=== PATIENT | female | born 1955 | race Hispanic/Latino ===

== ENCOUNTER 2017-12-12 18:01 | Emergency (ER) | payer OTHER ==
--- OUTSIDE RECORDS SUMMARY | 2017-12-12 18:04 | XMS REPORT | Clinical Summary ---
:1955 Author Organization [facility] Address [address] [place] [address] Care Team Providers Name Role Phone Kevin Robles MD Primary Care Provider Allergies Active Allergy Reactions Severity Noted Date Comments Aspirin GI Intolerance 09/14/2017 Pass out too Meperidine Itching 09/14/2017 Current Medications Prescription Sig. Disp. Refills Start Date End Date Status dexlansoprazole Take 60 mg by Active (DEXILANT) 60 mg mouth daily. capsule valsartan (DIOVAN) 160 Take 160 mg by Active MG tablet mouth daily. potassium chloride Take 10 mEq by Active (K-DUR,KLOR-CON) 10 mouth 2 (two) MEQ CR tablet times a day. amLODIPine (NORVASC) 5 Take 5 mg by Active mg tablet mouth daily. HYDROcodone-acetaminop TAKE ONE (1) 0 11/06/2017 Active hen (NORCO) 10-325 mg TABLET(S) BY per tablet MOUTH FOUR TIMES A DAY. cephalexin (KEFLEX) Take 1 capsule 8 capsule 0 09/25/2017 09/27/2017 500 MG capsule (500 mg total) by mouth every 6 (six) hours for 2 days. To begin after surgery promethazine Take 1 tablet 20 tablet 0 09/25/2017 10/25/2017 (PHENERGAN) 25 MG (25 mg total) tablet by mouth every 6 (six) hours as needed for nausea or vomiting for up to 30 days. To begin after surgery Active Problems No known active problems Encounters Date Type Specialty Care Team Description 11/30/2017 Procedure visit Neurology Bar Bazzi Bilateral arm pain ( Primary Dx); Cal MARINELLI MD Arthritis of left wrist; Jax Rico MD Numbness and tingling in both hands 11/30/2017 Telephone Orthopedic Surgery Bar Bazzi III, MD 11/27/2017 Orders Only Orthopedic Surgery Bar Bazzi III, MD 11/24/2017 Office Visit Orthopedic Surgery Bar Bazzi Arthritis of left wrist (Primary Dx); Cal MARINELLI MD Numbness and tingling in left hand 11/20/2017 Office Visit Orthopedic Surgery Taye Nava Complete tear of left MD Daquan rotator cuff (Primary Dx) 10/26/2017 Office Visit Orthopedic Surgery Taye Nava Complete tear of left W.MD rotator cuff (Primary Dx) 2017 Hospital Radiology Taye Nava MD 2017 Procedure Pass Radiology 2017 Ancillary Orders Radiology Taye Nava MD 10/05/2017 Office Visit Orthopedic Surgery Keri, Complete tear of left rotator cuff (Primary Dx); Janes Daly, Other secondary osteoarthritis of left wrist PA Taye Nava MD 09/28/2017 Telephone Anesthesiology Shannan Dacosta RN 09/27/2017 [facility] General Surgery Taye Nava MD 09/27/2017 Procedure Pass General Surgery 09/27/2017 Surgery General Surgery Taye Nava LEFT ARTHROSCOPY OF THE WMD Corrina SHOULDER WITH DECOMPRESSION, ACROMIOCLAVICULAR RESECTION, AND ROTATOR CUFF REPAIR 09/25/2017 [facility] Radiology Jeremias Mueller Bilateral Encounter ALLYSSA David temporomandibular joint pain 09/25/2017 Orders Only Orthopedic Surgery Janes Saavedra PA 09/22/2017 Pre-Admit Testing Pre-Admission Taye Nava Preop testing ( Primary Appointment Testing MD Daquan Dx) 09/21/2017 Anesthesia Event General Surgery Anjelica Pérez FNP 09/14/2017 Office Visit Orthopedic Surgery Taye Nava Complete tear of left MD Daquan rotator cuff (Primary Dx) 09/14/2017 Procedure Pass Radiology 09/14/2017 Transcribe Orders Access Jeremias Mueller Bilateral ALLYSSA David temporomandibular joint pain (Primary Dx) 01/17/2017 [facility] Radiology Pedro Pablo Navarro, Cervical stenosis of Encounter spine 01/17/2017 Ancillary Orders Pedro Pablo Obrien, Cervical stenosis of spine 01/17/2017 Transcribe Orders Pedro Pablo Obrien, Cervical stenosis of spine (Primary Dx) after 12/11/2016 Family History Medical History Relation Name Comments Heart disease Father Hypertension Father Heart disease Mother Thyroid cancer Mother Relation Name Status Comments Father Mother Social History Tobacco Use Types Packs/Day Years Used Date Never Smoker Smokeless Tobacco: Never Used Alcohol Use Drinks/Week oz/Week Comments No Sex Assigned at Date Recorded Not on file Last Filed Vital Signs Vital Sign Reading Time Taken Blood Pressure 114/69 09/27/2017 1:15 PM [facility] [employer] Pulse 58 09/27/2017 1:15 PM [employer] Temperature 36.6 C (97.9 F) 09/27/2017 1:15 PM [employer] Respiratory Rate 16 09/27/2017 1:15 PM [employer] [employer] Oxygen Saturation 97% 09/27/2017 1:15 PM [employer] Inhaled Oxygen Concentration - - Weight 56.7 kg (125 lb) 11/24/2017 10:04 AM CDT Height 160 cm (5' 3") 11/24/2017 10:04 AM CDT Body Mass Index 22.14 11/24/2017 10:04 AM CDT Plan of Treatment Date Type Specialty Care Team Description 12/18/2017 [place] [address] [place], [place] [address] Marilin Soto 12/19/2017 Office Visit [place] [address] [place], [place] [address] 12/25/2017 Office [place] [address] [place], [place] [id number] Marilin Soto 01/01/2018 Office [place] [address] [place], [place] [id number] Health Maintenance Due Date Last Done Comments PAP SMEAR 1977 COLONOSCOPY 2006 MAMMOGRAM 2006 ZOSTER VACCINE 2016 INFLUENZA VACCINE 04/04/2018 Implants Implanted Type Area Veterinary Practitioner Device Expiration Model / Identifier Date Serial / Lot [place] Sut Pushlock Kntls Peek 4.5x24mm - [id number] Orthopedic Left: [employer] 03/03/2022 AR [id number] / Implanted: 09/27/2017 (Quantity not on file) Trauma Shoulder / Implants [id number] [place] S[place] Pushlock Kntls Peek 4.5x24mm - [id number] Orthopedic Left: [employer] 03/03/2022 AR 1922PS / Implanted: 09/27/2017 (Quantity not on file) Trauma Shoulder / Implants [id number] [place] Sut Healix Knotless Br Biocmpst W/ Orthocord 5.5mm - [id number] Orthopedic Left: [employer]K 05/04/2020 [id number] / Implanted: 09/27/2017 (Quantity not on file) Trauma Shoulder / Implants [id number] Procedures Procedure Name Priority Date/Time Associated Comments Diagnosis SC ARTHROCENTESIS Routine 11/24/2017 10:30 Arthritis of left Results for this ASPIR&/INJ INTERM AM CDT wrist procedure are in JT/BURS W/O US the results section. SC AN PERIPHERAL BLOCK Routine 09/27/2017 7:55 POST-OP PAIN AM [employer] Procedure Note - Karlos Khoury MD - 09/27/2017 7:54 AM [employer] Peripheral Block Performed by: KARLOS KHOURY Authorized by: KARLOS KHOURY Patient Location: Pre-op Reason for Block: at surgeon's request, post-op pain management Staff: Anesthesiologist: KARLOS KHOURY Performed by: Anesthesiologist Preprocedure: patient identified, IV checked, site and side verified, risks and benefits discussed, procedure verified, surgical consent complete, patient position confirmed, monitors and equipment checked, pre-op evaluation complete and site marked Peripheral Nerve Block: Patient Position: Right lateral decubitus Prep: DuraPrep Block Type: Interscalene Laterality: Left Injection Technique: Catheter insertion Procedures: ultrasound guided and nerve stimulator Ultrasound documentation: Printed/placed in chart Local Infiltration (See MAR for details): Ropivacaine Needle: Needle Type: Pajunk Needle Gauge: 19 G Needle Length: 10 cm Catheter at Skin Depth: 6 cm Assessment: Injection Assessment: Visualized needle/local anesthetic surrounding nerve , visualized pertinent vascular structures and nerves, needle tip visualized at all times during injection of medication, intermittent aspiration during local anesthetic administration and no symptoms of intraneural/intravenous injection Heart Rate Change: No Slow Fractionated Injection: Yes Block outcome: No apparent complications, patient comfortable and patient tolerated procedure well Notes: Time Out done immediately before procedure 20cc 0.5N and 4md Decadron after 12/11/2016 Results TING SCREEN W IFA W REFLEX TO TITER (11/27/2017 11:22 AM) Component Value Ref Range TING screen NEGATIVE NEGATIVE Comment: TING IFA is a first line screen for detecting the presence of up to approximately 150 autoantibodies in various autoimmune diseases. A negative TING IFA result suggests TING-associated autoimmune diseases are not present at this time. Visit Physician FAQs for interpretation of all antibodies in the Hart, prevalence, and association with diseases at [email or web address] [email or web address] Specimen Performing Laboratory [facility] Narrative FASTING: UNKNOWN SSA/SSB antibody (11/27/2017 11:22 AM) Component Value Ref Range Sjogren's SS-A antibody <1.0 NEG <1.0 NEG AI Sjogren's SS-B antibody <1.0 NEG <1.0 NEG AI Specimen Performing Laboratory [facility] Narrative FASTING: UNKNOWN DNA Ab screen (11/27/2017 11:22 AM) Component Value Ref Range DNA ds antibody 1 IU/mL Comment: IU/mL Interpretation < or=4 Negative 5-9 Indeterminate > or=10 Positive Specimen Performing Laboratory [facility] Narrative FASTING: UNKNOWN Cyclic citrullinated peptide antibody, IgG (11/27/2017 11:22 AM) Component Value Ref Range Cyclic citrullin peptide Ab <16 UNITS Comment: Reference Range Negative:<20 Weak Positive: 20-39 Moderate Positive: 40-59 Strong Positive: >59 Specimen Performing Laboratory [facility] Narrative FASTING: UNKNOWN Sedimentation rate (11/27/2017 11:22 AM) Component Value Ref Range Sedimentation rate 8 < OR=30 mm/h Specimen Performing Laboratory [facility] Narrative FASTING: UNKNOWN CBC with platelet and differential (11/27/2017 11:22 AM)Only the most recent of2 resultswithin the time period is included. Component Value Ref Range WBC 8.9 3.8 - 10.8 Thousand/uL RBC 4.50 3.80 - 5.10 Million/uL HGB 13.7 11.7 - 15.5 g/dL HCT 42.2 35.0 - 45.0 % MCV 93.8 80.0 - 100.0 fL MCH 30.4 27.0 - 33.0 pg MCHC 32.5 32.0 - 36.0 g/dL RDW 12.5 11.0 - 15.0 % Platelet count 405 (H) 140 - 400 Thousand/uL MPV 10.6 7.5 - 12.5 fL Neutrophils, absolute 5,385 1,500 - 7,800 cells/uL Lymphocytes, absolute 2,394 850 - 3,900 cells/uL Monocytes, absolute 596 200 - 950 cells/uL Eosinophils, absolute 454 15 - 500 cells/uL Basophils, absolute 71 0 - 200 cells/uL Neutrophils 60.5 % Lymphocytes 26.9 % Monocytes 6.7 % Eosinophils 5.1 % Basophils + RC 0.8 % Specimen Performing [facility] Narrative FASTING: UNKNOWN Rheumatoid factor (11/27/2017 11:22 AM) Component Value Ref Range Rheumatoid factor <14 <14 IU/mL Specimen Performing [facility] Narrative FASTING: UNKNOWN C-reactive protein (11/27/2017 11:22 AM) Component Value Ref Range CRP 4.1 <8.0 mg/L Specimen Performing Laboratory [facility] Narrative FASTING: UNKNOWN Uric acid level (11/27/2017 11:22 AM) Component Value Ref Range Uric acid 9.8 (H) 2.5 - 7.0 mg/dL Comment: Therapeutic target for gout patients: <6.0 mg/dL Specimen Performing Laboratory [facility] Narrative FASTING: UNKNOWN Comprehensive metabolic panel (11/27/2017 11:22 AM) Component Value Ref Range Glucose 81 65 - 99 mg/dL Comment: Fasting reference interval BUN, whole blood 30 (H) 7 - 25 mg/dL Creatinine 0.99 0.50 - 0.99 mg/dL Comment: For patients >49 years of age, the reference limit for Creatinine is approximately 13% higher for people identified as -Mosotho. EGFR Non-Afr. Mosotho 61 > OR=60 mL/min/1.73m2 EGFR 71 > OR=60 mL/min/1.73m2 BUN/creatinine ratio 30 (H) 6 - 22 (calc) Sodium 144 135 - 146 mmol/L Potassium 4.3 3.5 - 5.3 mmol/L Chloride 106 98 - 110 mmol/L CO2 27 20 - 31 mmol/L Calcium 9.4 8.6 - 10.4 mg/dL Protein 7.4 6.1 - 8.1 g/dL Albumin, S 4.0 3.6 - 5.1 g/dL Globulin, total 3.4 1.9 - 3.7 g/dL (calc) Albumin/globulin ratio 1.2 1.0 - 2.5 (calc) Total bilirubin 0.3 0.2 - 1.2 mg/dL Alkaline phosphatase 88 33 - 130 U/L AST 18 10 - 35 U/L ALT 18 6 - 29 U/L Specimen Performing Laboratory [facility] Narrative FASTING: UNKNOWN Medium Joint Arthrocentesis (11/24/2017 10:30 AM) Narrative Bar Bazzi III, MD 11/24/2017 12:57 PM Medium Joint Arthrocentesis Supporting Documentation Indications: pain Procedure Details Preparation: Patient was prepped and draped in the usual sterile fashion Location: wrist - Wrist joint: left distal radioulnar joint. XR Wrist 3+ Vw Left (11/24/2017 10:13 AM) Specimen Performing Laboratory [facility] [address] [place] [address] Narrative PA, lateral, and oblique views of the left wrist demonstrate no acute abnormalities. Advanced DRUJ arthrosis with joint space narrowing and spurring. Mild ulnar positive variance. Carpal alignment unremarkable. POC glucose (09/27/2017 7:40 AM) Component Value Ref Range POC glucose 88 65 - 99 mg/dL Comment: Meter ID: [id number] Mold Worker: Anny Pascual Specimen Performing Laboratory [facility] DEPARTMENT OF PATHOLOGY AND GENOMIC MEDICINE [address] [place] [id number] MRI Temporomandibular Joints (09/25/2017 11:05 AM) Specimen Performing Laboratory [facility] [address] [place] [address] Narrative EXAMINATION:MRI TEMPOROMANDIBULAR JOINTS CLINICAL HISTORY:M26.623 Arthralgia of bilateral temporomandibular joint, ARTHRALGIA COMPARISON:None. TECHNIQUE: Multiplanar MRI imaging of the TMJs without IV Gadolinium was performed during open and closed positions. Dynamic cine sequence was obtained. FINDINGS: RIGHT: Moderate degenerative changes of the articular disc with moderate flattening and mild elevated T2 signal. The disc appears to be well located on opening closed mouth views. Small osteophyte of the mandibular condyle. No joint effusion or marrow edema. LEFT: The articular disc is severely macerated with no normal disc material identified on closed or open-mouth views. 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 [id number] Procedure Note Hm Interface, Radiology Results Incoming - 09/25/2017 12:02 PM [facility] [employer] EXAMINATION: MRI TEMPOROMANDIBULAR JOINTS CLINICAL HISTORY: M26.623 Arthralgia of bilateral temporomandibular joint, ARTHRALGIA COMPARISON: None. TECHNIQUE: Multiplanar MRI imaging of the TMJs without IV Gadolinium was performed during open and closed positions. Dynamic cine sequence was obtained. FINDINGS: RIGHT: Moderate degenerative changes of the articular disc with moderate flattening and mild elevated T2 signal. The disc appears to be well located on opening closed mouth views. Small osteophyte of the mandibular condyle. No joint effusion or marrow edema. LEFT: The articular disc is severely macerated with no normal disc material identified on closed or open-mouth views. 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 [id number] Estimated GFR (09/22/2017 11:03 AM) Component Value Ref Range GFR Non Af Amer 56 (A) mL/min/1.73 m2 GFR Af Amer 68 mL/min/1.73 m2 Comment: Chronic kidney disease: <60 mL/min/1.73m2 Kidney failure: <15 mL/min/1.73m2 The estimated GFR is calculated from the IDMS-traceable Modification of Diet in Renal Disease Equation. The accuracy of the calculation is poor when the creatinine is normal. Calculated values >90 mL/min/1.73m2 are not reported. This equation has not been validated in children (<18 years), women, the elderly (>70 years), or ethnic groups other than Caucasians and Americans. Specimen Performing Laboratory Plasma specimen [facility] DEPARTMENT OF PATHOLOGY AND [address] [address] Basic metabolic panel (09/22/2017 11:03 AM) Component Value Ref Range Sodium 144 135 - 148 mEq/L Potassium 5.5 (H) 3.5 - 5.0 mEq/L Chloride 104 98 - 112 mEq/L CO2 28 24 - 31 mEq/L Anion gap 12 7 - 15 mEq/L Comment: Starting from December , anion gap calculation no longer incorporates potassium. Please note the change. BUN 27 (H) 8 - 23 mg/dL Creatinine 1.0 (H) 0.5 - 0.9 mg/dL Glucose 99 65 - 99 mg/dL Calcium 9.8 8.8 - 10.2 mg/dL Specimen Performing Laboratory Plasma specimen [facility] PATHOLOGY AND [address] [address] XR Cervical Spine Ap Lateral Flexion And Extension (01/17/2017 11:11 AM) Specimen Performing Laboratory [facility] [address] [place] [address] Narrative EXAMINATION: XR CERVICAL SPINE AP LATERAL FLEXION AND EXTENSION CLINICAL HISTORY: Cervical region neck pain. Cervical canal stenosis. COMPARISON:X-rays of the cervical spine from October 27, 2016 FINDINGS: There is relatively stable anterior fusion from C5 to C7. There is severe posterior disc space narrowing at C3-4 and moderate posterior disc space narrowing at C4-5. There is mild dorsal spondylosis at C3-4 and C4-5. There is mild anterolisthesis at C7-T1 which does not change significantly with flexion versus extension. There is stable mild disc space narrowing at C7-T1. There are facet and uncovertebral joint hypertrophic changes, more prominent in the lower cervical region. The cervical curvature is slightly convex towards the right. IMPRESSION: Postoperative and degenerative changes in the cervical spine without acute abnormality. [facility]-[id number] Procedure Note Interface, Radiology Results Incoming - 01/18/2017 12:22 PM CDT EXAMINATION: XR CERVICAL SPINE AP LATERAL FLEXION AND EXTENSION CLINICAL HISTORY: Cervical region neck pain. Cervical canal stenosis. COMPARISON: X-rays of the cervical spine from October 27, 2016 FINDINGS: There is relatively stable anterior fusion from C5 to C7. There is severe posterior disc space narrowing at C3-4 and moderate posterior disc space narrowing at C4-5. There is mild dorsal spondylosis at C3-4 and C4- 5. There is mild anterolisthesis at C7-T1 which does not change significantly with flexion versus extension. There is stable mild disc space narrowing at C7-T1. There are facet and uncovertebral joint hypertrophic changes, more prominent in the lower cervical region. The cervical curvature is slightly convex towards the right. IMPRESSION: Postoperative and degenerative changes in the cervical spine without acute abnormality. [facility]-[id number] after 12/11/2016 Insurance Payer Benefit Plan / Group Subscriber ID Type Phone Address MEDICARE MEDICARE PART A AND B xxxxxxxxxx Medicare [place], [place] MEDICAID MEDICAID xxxxxxxxx Medicaid Home: [address] [place], [place] [id number] [id number] [place] [id number]
--- OUTSIDE RECORDS SUMMARY | 2017-12-12 18:05 | XMS REPORT | Clinical Summary ---
:1955 Author Organization [facility] Address [address] [place] [address] Phone Care Team Providers Name Role Phone Unavailable Primary Care Provider Unavailable Allergies Active Allergy Reactions Severity Noted Date Comments Aspirin Other (See Comments) 06/06/2017 dizzy Tramadol Itching 06/06/2017 Current Medications Prescription Sig. Disp. Refills Start Date End Date Status valsartan (DIOVAN) Take 160 mg Active 160 MG tablet by mouth daily. amLODIPine (NORVASC) Take 5 mg by Active 5 MG tablet mouth daily. furosemide (LASIX) 40 Take 40 mg Active MG tablet by mouth as needed. HYDROCODONE-ACETAMINO Take by Active PHEN ORAL mouth. promethazine Take 25 mg Active (PHENERGAN) 25 MG by mouth tablet every 6 (six) hours as needed for Nausea. ranitidine (ZANTAC) Take 150 mg Active 150 MG tablet by mouth 2 (two) times daily. dexlansoprazole 60 mg Take 60 mg Active capsule by mouth daily. omeprazole (PRILOSEC) Take 40 mg Active 40 MG capsule by mouth daily. MULTIVIT-MINERALS/FOL Take by Active IC/GINKGO (WOMEN'S mouth. 50+ DAILY FORM, GKB, ORAL) potassium chloride Take 10 mEq Active (KLOR-CON) 10 MEQ CR by mouth tablet daily. LIPASE/PROTEASE/AMYLA Take by 08/15/2017 Discontinued SE (CREON ORAL) mouth. cyclobenzaprine Take 1 30 tablet 0 08/17/2017 08/27/2017 (FLEXERIL) 10 MG tablet (10 tablet mg total) by mouth 3 (three) times daily as needed for Muscle spasms for up to 10 days. aluminum & Take 30 mLs 355 mL 0 08/18/2017 08/28/2017 magnesium by mouth hydroxide-simethicone every 6 (MAALOX PLUS) (six) hours 400-400-40 mg/5 mL as needed suspension for up to 10 days. Active Problems Problem Noted Date Chronic pancreatitis (HCC) 08/15/2017 Abdominal pain 08/15/2017 Encounters Date Type Specialty Care Team Description [facility]2017 [facility] Medicine MD Shaheen (Primary Dx);Other 08/19/2017 [place], chronic pancreatitis [place] ([facility]);Essential MD Javid hypertension;Dislocatio n of temporomandibular joint, initial encounter 08/15/2017 Anesthesia Event Gastroenterology Ambrose Polanco MD 08/15/2017 Procedure Pass Gastroenterology 08/15/2017 Surgery Gastroenterology [place], ERCP MD Shaheen 06/12/2017 Hospital Gastroenterology [place], Encounter MD Shaheen 06/12/2017 Procedure Pass Gastroenterology 06/12/2017 Surgery Gastroenterology [place], UPPER ENDOSCOPY,FNA MD Shaheen W/ULTRASOUND 06/09/2017 Anesthesia Event Gastroenterology FlamKarlos MD after 12/11/2016 Immunizations Name Dates Previously Given Next Due Influenza Three-TIV PF 5+ YR 08/16/2017 Social History Tobacco Use Types Packs/Day Years Used Date Never Smoker Smokeless Tobacco: Never Used Alcohol Use Drinks/Week oz/Week Comments No Sex Assigned at Date Recorded Not on file Last Filed Vital Signs Vital Sign Reading Time Taken Blood Pressure 108/70 08/19/2017 11:43 AM BENEFITS CLERK Pulse 81 08/19/2017 11:43 AM BENEFITS CLERK Temperature 36.7 C (98.1 F) 08/19/2017 11:43 AM BENEFITS CLERK Respiratory Rate 20 08/19/2017 11:43 AM BENEFITS CLERK Oxygen Saturation 97% 08/19/2017 11:43 AM BENEFITS CLERK Inhaled Oxygen Concentration - - Weight 64.3 kg (141 lb 12.8 oz) 08/15/2017 12:19 PM BENEFITS CLERK Height 160 cm (5' 3") 08/15/2017 12:19 PM BENEFITS CLERK Body Mass Index 25.12 08/15/2017 12:19 PM BENEFITS CLERK Plan of Treatment Not on file Procedures Procedure Name Priority Date/Time Associated Diagnosis Comments PROCEDURE W/ C-ARM 08/15/2017 1:00 PM BENEFITS CLERK Biliary pain Special Needs (C-ARM) ERCP 08/15/2017 1:00 PM BENEFITS CLERK Biliary pain Special Needs (C-ARM) UPPER ENDOSCOPY,FNA W/ULTRASOUND 06/12/2017 2:30 PM CDT Chronic abdominal pain Special Needs (LINEAR SCOPE) after 12/11/2016 Results XR temporomandibular joint bilateral (08/17/2017 4:56 PM)Only the most recent of2 resultswithin the time period is included. Specimen Performing Laboratory GE RIS Narrative FINAL REPORT TECHNIQUE: Open and closed mouth views of both temporomandibular joints dated 08/17/2017. HISTORY: Status post reduction. COMPARISON: No mandibular radiographs dated 08/16/2017. IMPRESSION: There has been interval relocation of the right temporomandibular joint. Left temporal mandibular joint is unremarkable in appearance. No visualized fracture. Signed: Myriam Velez MD Report Verified Date/Time:08/17/2017 17:16:54 Reading Location: [facility] Radiology Reading Room Procedure Note Interface, External Ris In - 08/17/2017 5:19 PM BENEFITS CLERK FINAL REPORT TECHNIQUE: Open and closed mouth views of both temporomandibular joints dated 08/17/2017. HISTORY: Status post reduction. COMPARISON: No mandibular radiographs dated 08/16/2017. IMPRESSION: There has been interval relocation of the right temporomandibular joint. Left temporal mandibular joint is unremarkable in appearance. No visualized fracture. Signed: Myriam Velez MD Report Verified Date/Time: 08/17/2017 17:16:54 Reading Location: [facility] Radiology Reading Room Sedimentation rate (08/17/2017 5:25 AM) Component Value Ref Range Sed Rate 51 (H) 0 - 30 mm/HR Specimen Performing Laboratory Blood [address] [address] Anti-Nuclear Antibody (TING) (08/16/2017 12:07 PM) Component Value Ref Range TING Negative Negative Specimen Performing Laboratory Blood [address] [place] [address] Phosphorus (08/16/2017 6:12 AM) Component Value Ref Range Phosphorus 3.1 2.3 - 4.7 mg/dL Specimen Performing Laboratory Blood - Arm, [address] [address] Magnesium (08/16/2017 6:12 AM) Component Value Ref Range Magnesium 1.7 1.6 - 2.6 mg/dL Specimen Performing Laboratory Blood - Arm, [address] [address] Hepatic function panel (08/16/2017 6:12 AM) Component Value Ref Range Protein, Total 6.8 6.0 - 8.3 gm/dL Albumin 3.6 3.5 - 5.0 g/dL Total Bilirubin 0.5 0.2 - 1.2 mg/dL Bilirubin, Direct 0.2 0.1 - 0.5 mg/dL Alkaline Phosphatase 96 40 - 150 U/L AST 74 (H) 5 - 34 U/L ALT 38 6 - 55 U/L Specimen Performing Laboratory Blood - Arm, [address] [address] Basic metabolic panel (08/16/2017 6:12 AM) Component Value Ref Range Sodium 144 136 - 145 meq/L Potassium 3.5 3.5 - 5.1 meq/L Chloride 111 (H) 98 - 107 meq/L CO2 24 22 - 29 meq/L BUN 14 7 - 21 mg/dL Creatinine 0.80 0.57 - 1.25 mg/dL Glucose 79 70 - 105 mg/dL Calcium 8.3 (L) 8.4 - 10.2 mg/dL EGFR 73Comment: ESTIMATED GFR IS NOT ACCURATE mL/min/1.73 sq m CREATININE CLEARANCE IN PREDICTING GLOMERULAR FILTRATION RATE. ESTIMATED GFR IS NOT APPLICABLE FOR DIALYSIS PATIENTS. Specimen Performing Laboratory Blood - Arm, [address] [address] Manual Differential (08/16/2017 5:59 AM) Component Value Ref Range Total Counted WBC Morphology Normal Platelet Morphology Normal RBC Morphology Normal Specimen Performing Laboratory Blood - Arm, [address] [address] CBC with platelet count + automated diff (08/16/2017 5:59 AM) Component Value Ref Range WBC 8.8 3.5 - 10.5 K/L RBC 3.72 (L) 3.93 - 5.22 M/L Hemoglobin 11.7 11.2 - 15.7 GM/DL Hematocrit 37.9 34.1 - 44.9 % MCV 101.9 (H) 79.4 - 94.8 fL MCH 31.5 25.6 - 32.2 pg MCHC 30.9 (L) 32.2 - 35.5 GM/DL RDW 12.9 11.7 - 14.4 % Platelets 181 150 - 450 K/CU MM MPV 11.1 9.4 - 12.3 fL nRBC 0 0 - 0 /100 WBC % Neutros 75 % % Lymphs 16 % % Monos 6 % % Eos 2 % % Baso 1 % # Neutros 6.58 (H) 1.56 - 6.13 K/L # Lymphs 1.38 1.18 - 3.74 K/L # Monos 0.54 (H) 0.24 - 0.36 K/L # Eos 0.18 0.04 - 0.36 K/L # Baso 0.06 0.01 - 0.08 K/L Immature Granulocytes-Relative 0 0 - 1 % Specimen Performing Laboratory Blood - Arm, Left [address] [address] CBC with platelet count + automated diff (08/16/2017 5:59 AM) Specimen Performing Laboratory Blood Narrative The following orders were created for panel order CBC with platelet count + automated diff. Procedure Abnormality Status --------- ------ CBC with platelet count ...[[id number]]AbnormalFinal result Manual Differential[[id number]] Fi nal result Please view results for these tests on the individual orders. REPORT OF PROCEDURE - ENDOSCOPY URL (08/15/2017 2:43 PM)Only the most recent of2 resultswithin the time period is included.FL Endoscopic Retrograde Cholangiopancreatography (08/15/2017 2:16 PM) Specimen Performing Laboratory GE RIS Narrative FINAL REPORT ERCP. CLINICAL HISTORY: dilated ducts. COMPARISON STUDY: August 05, 2004. FINDINGS: Seven fluoroscopically acquired images from an ERCP are submitted for interpretation. There has been retrograde cannulation and injection of contrast into the CBD. The duct is dilated. A balloon device was swept through the duct. Cholecystectomy clips are seen. An intraoperative verbal report was not requested. Please refer to the gastroenterology notes for further discussion. Fluoroscopy was not performed by the undersigned. Fluoroscopy time: One minute, 39 seconds. Seven images. Signed: Darwin Juan MD Report Verified Date/Time:08/15/2017 16:10:57 Reading Location: [address] Radiology Reading Room Procedure Note Interface, External Ris In - 08/15/2017 4:13 PM BENEFITS CLERK FINAL REPORT ERCP. CLINICAL HISTORY: dilated ducts. COMPARISON STUDY: August 05, 2004. FINDINGS: Seven fluoroscopically acquired images from an ERCP are submitted for interpretation. There has been retrograde cannulation and injection of contrast into the CBD. The duct is dilated. A balloon device was swept through the duct. Cholecystectomy clips are seen. An intraoperative verbal report was not requested. Please refer to the gastroenterology notes for further discussion. Fluoroscopy was not performed by the undersigned. Fluoroscopy time: One minute, 39 seconds. Seven images. Signed: Darwin Juan MD Report Verified Date/Time: 08/15/2017 16:10:57 Reading Location: [address] Radiology Reading Room -Potassium (06/12/2017 1:34 PM) Component Value Ref Range POC-Potassium 3.9Comment: TESTED AT [address] 3.6 - 5.5 meq/L [id number] Specimen Performing Laboratory Blood [facility] [address] [address] after 12/11/2016
--- OUTSIDE RECORDS SUMMARY | 2017-12-12 18:05 | XMS REPORT ---
:1955 [facility] Address [address] [place] [address] Care Team Providers Name Role Phone ZABRINA STALLWORTH Unavailable Unavailable Problems This patient has no known problems. Allergies, Adverse Reactions, Alerts This patient has no known allergies or adverse reactions. Medications This patient has no known medications. Results Test Description Test Time Test Comments Text Results Atomic Results Result Comments RAD, TEMPOROMANDIBULAR 2017-08-17 Reason for FINAL REPORT PATIENT JOINT, BILATERAL 17:16:00 exam:->s/p ID: [id number] reduction TECHNIQUE: Open and closed mouth views of both temporomandibular joints dated 08/17/2017. HISTORY: Status post reduction. COMPARISON: No mandibular radiographs dated 08/16/2017. IMPRESSION:There has been interval relocation of the right temporomandibular joint. Left temporal mandibular joint is unremarkable in appearance. No visualized fracture. Signed: Myriam Velezepkala Verified Date/Time: 08/17/2017 17:16:54 Reading Location: [facility] Radiology Reading Room -NUCLEAR ANTIBODY (TING) 2017-08-17 14:15:00 Test Item Value Reference Range Comments ANTI-NUCLEAR ANTIBODY (TING) (BEAKER) (test zpaz=606) Negative Negative SEDIMENTATION [id number] 09:30:00 Test Item Value Reference Range Comments SEDIMENTATION RATE, ERYTHROCYTE (BEAKER) (test 51 mm/HR 0-30 ojzo=994) RAD, TEMPOROMANDIBULAR JOINT, [id number] 18:19:00Reason for exam:-> lock jawFINAL REPORT TECHNIQUE: Frontal and lateral views of both temporomandibular joints. INDICATION: 61-year-old woman with lock jaw. COMPARISON: None. FINDINGS:Normal appearance of the left temporomandibular joint on closed and open-mouth views.Anterior subluxation of the right mandibular condyle on closed and open-mouth views.Frontal view of the mandible shows slight asymmetry. IMPRESSION:Suspected anterior subluxation/dislocation at the right temporomandibular joint. Signed: Terri Chirinos MDReport Verified Date/Time: 08/16/2017 18:19:33 Reading Location: [address] Consult Reading Room Electronically signed by: TERRI CHIRINOS MD on 2016 06:19 PMCBC W/PLT COUNT & AUTO [id number] 11:27:00 Test Item Value Reference Range Comments WHITE BLOOD CELL COUNT (BEAKER) (test ijzg=602) 8.8 K/ L 3.5-10.5 RED BLOOD CELL COUNT (BEAKER) (test emsk=866) 3.72 M/ L 3.93-5.22 HEMOGLOBIN (BEAKER) (test kfro=182) 11.7 GM/DL 11.2-15.7 HEMATOCRIT (BEAKER) (test ykrh=706) 37.9 % 34.1-44.9 MEAN CORPUSCULAR VOLUME (BEAKER) (test vemz=604) 101.9 fL 79.4-94.8 MEAN CORPUSCULAR HEMOGLOBIN (BEAKER) (test 31.5 pg 25.6-32.2 iuet=167) MEAN CORPUSCULAR HEMOGLOBIN CONC (BEAKER) (test 30.9 GM/DL 32.2-35.5 jtci=165) RED CELL DISTRIBUTION WIDTH (BEAKER) (test 12.9 % 11.7-14.4 ogvp=476) PLATELET COUNT (BEAKER) (test moea=763) 181 K/CU MM 150-450 MEAN PLATELET VOLUME (BEAKER) (test wwex=868) 11.1 fL 9.4-12.3 NUCLEATED RED BLOOD CELLS (BEAKER) (test 0 /100 WBC 0-0 xlsq=813) NEUTROPHILS RELATIVE PERCENT (BEAKER) (test 75 % suji=273) LYMPHOCYTES RELATIVE PERCENT (BEAKER) (test 16 % uowj=170) MONOCYTES RELATIVE PERCENT (BEAKER) (test 6 % tfch=780) EOSINOPHILS RELATIVE PERCENT (BEAKER) (test 2 % lijq=628) BASOPHILS RELATIVE PERCENT (BEAKER) (test 1 % ersp=784) NEUTROPHILS ABSOLUTE COUNT (BEAKER) (test 6.58 K/ L 1.56-6.13 hgfz=914) LYMPHOCYTES ABSOLUTE COUNT (BEAKER) (test 1.38 K/ L 1.18-3.74 cxjq=949) MONOCYTES ABSOLUTE COUNT (BEAKER) (test 0.54 K/ L 0.24-0.36 kecy=456) EOSINOPHILS ABSOLUTE COUNT (BEAKER) (test 0.18 K/ L 0.04-0.36 wzfu=268) BASOPHILS ABSOLUTE COUNT (BEAKER) (test 0.06 K/ L 0.01-0.08 hybo=226) IMMATURE GRANULOCYTES-RELATIVE PERCENT (BEAKER) 0 % 0-1 (test ryvg=9396) (MANUAL DIFFERENTIAL)2017-08-16 11:27:00 Test Item Value Reference Range Comments TOTAL COUNTED (BEAKER) (test npug=5769) WBC MORPHOLOGY (BEAKER) (test ehef=414) Normal PLT MORPHOLOGY (BEAKER) (test xjch=340) Normal RBC MORPHOLOGY (BEAKER) (test nhem=451) Normal [id number] 07:47:00 Test Item Value Reference Range Comments PHOSPHORUS (BEAKER) (test obbe=176) 3.1 mg/dL 2.3-4.7 [id number] 07:47:00 Test Item Value Reference Range Comments MAGNESIUM (BEAKER) (test notu=608) 1.7 mg/dL 1.6-2.6 BASIC METABOLIC [id number] 07:47:00 Test Item Value Reference Range Comments SODIUM (BEAKER) (test 144 meq/L 136-145 zzev=691) POTASSIUM (BEAKER) (test 3.5 meq/L 3.5-5.1 gtkl=811) CHLORIDE (BEAKER) (test 111 meq/L 98-107 lnde=654) CO2 (BEAKER) (test 24 meq/L 22-29 jtur=518) BLOOD UREA NITROGEN 14 mg/dL 7-21 (BEAKER) (test ivtz=762) CREATININE (BEAKER) (test 0.80 mg/dL 0.57-1.25 gdgh=850) GLUCOSE RANDOM (BEAKER) 79 mg/dL 70-105 (test tpmj=943) CALCIUM (BEAKER) (test 8.3 mg/dL 8.4-10.2 zufn=169) EGFR (BEAKER) (test 73 mL/min/1.73 sq m ESTIMATED GFR IS NOT fhlx=6121) ACCURATE CREATININE CLEARANCE IN PREDICTING GLOMERULAR FILTRATION RATE. ESTIMATED GFR IS NOT APPLICABLE FOR DIALYSIS PATIENTS. HEPATIC FUNCTION [id number] 07:47:00 Test Item Value Reference Range Comments TOTAL PROTEIN (BEAKER) (test jcnv=071) 6.8 gm/dL 6.0-8.3 ALBUMIN (BEAKER) (test vpee=4496) 3.6 g/dL 3.5-5.0 BILIRUBIN TOTAL (BEAKER) (test wimx=150) 0.5 mg/dL 0.2-1.2 BILIRUBIN DIRECT (BEAKER) (test lpta=847) 0.2 mg/dL 0.1-0.5 ALKALINE PHOSPHATASE (BEAKER) (test mtma=303) 96 U/L 40-150 AST (SGOT) (BEAKER) (test rzrl=091) 74 U/L 5-34 ALT (SGPT) (BEAKER) (test ikvx=093) 38 U/L 6-55 FL, [id number] 16:10:00Reason for exam:->dilated ductsFINAL REPORT ERCP. CLINICAL HISTORY: dilated ducts. COMPARISON [...] minute, 39 seconds. Seven images. Signed: Darwin Juaneport Verified Date/Time: 08/15/2017 16:10:57 Reading Location: [address] Radiology Reading Room [id number] 13:55:00 Test Item Value Reference Range Comments POC-POTASSIUM (BEAKER) (test 3.9 meq/L 3.6-5.5 TESTED AT [facility] [address] [facility] vwai=5383) [facility] [address]
[2017-12-12 18:55] LABS: Urine Blood 3+ (NEG); Urine Glucose NEGATIVE (NEG); Urine Protein 1+ (NEG)
[2017-12-12 19:02] LABS: Urine Bacteria <20 /HPF (<20); Urine Culture Reflex Order NOT NEEDED; Urine RBC TNTC /HPF (NONE SEEN)
[2017-12-12] MEDS ORDERED: TRAMADOL HCL 50 MG TAB ONE (20:09)
--- NOTE | 2017-12-12 20:11 | RAD REPORT ---
EXAM DESCRIPTION: RAD - Chest Pa And Lat (2 Views) - 12/12/2017 8:04 pm CLINICAL HISTORY: Cough and congestion COMPARISON: 02/08/2017, 09/21/2016 FINDINGS: The lungs are clear. The heart is upper limit of normal in size. No displaced fractures. C ervical spine hardware noted. IMPRESSION: No acute or concerning finding suspected.
[2017-12-12] MEDS ORDERED: HYDROCODONE/APAP 5/325 MG TAB ONE (20:34)
--- NOTE | 2017-12-12 21:03 | ER ---
Nurse's Notes [facility] Name: Marita Hernandez Age: 62 yrs Sex: Female : 1955 Arrival Date: 12/12/2017 Time: 18:03 Bed 19 Private MD: Diagnosis: Acute upper respiratory infection, unspecified;Viral infection, unspecified Presentation: 12/12 18:08 Care prior to arrival: None. tw2 18:08 Method Of Arrival: Ambulatory tw2 18:15 Presenting complaint: Patient states: i have chest pain, body ache and head ache. tw2 Transition of care: patient was not received from another setting of care. Onset of symptoms was December 12, 2017. 18:15 Acuity: MEHRDAD 3 tw2 Historical: - Allergies: 18:10 Aspirin; tw2 18:10 Demerol; tw2 18:10 Dilaudid; tw2 18:10 NSAIDS; tw2 18:10 tramadol; tw2 - Home Meds: 18:16 Creon 36,000-114,000- 180,000 unit Oral cpDR 1 cap four times a day [Active]; Diovan 80 tw2 mg Oral tab 2 times per day [Active]; Lasix 40 mg Oral tab 1 tab once daily [Active]; [place] 10-325 mg Oral tab as needed [Active]; Phenergan Oral 25 mg as needed [Active]; potassium chloride 10 mEq Oral cpER 1 cap 2 times per day [Active]; Singulair 10 mg Oral tab 1 tab once daily [Active]; Zyrtec 10 mg Oral tab 1 tab as needed [Active]; - PMHx: 18:16 acid reflux; Hypertension; Pancreatitis; tw2 - PSHx: 18:16 nasal surg; tw2 - Immunization history:: Adult Immunizations up to date. - Social history:: Smoking status: Patient/guardian denies using tobacco. Screenin:18 Abuse screen: Denies threats or abuse. Denies injuries from another. Nutritional ch screening: No deficits noted. Tuberculosis screening: No symptoms or risk factors identified. Fall Risk None identified. Assessment: 18:47 General: Appears in no apparent distress. uncomfortable, Behavior is cooperative, ch appropriate for age, anxious. Pain: Complains of pain in generalized Pain currently is 9 out of 10 on a pain scale. Pain began suddenly. Neuro: No deficits noted. Cardiovascular: Heart tones S1 S2 present Capillary refill < 3 seconds in bilateral fingers toes Clubbing of nail beds is absent. Respiratory: Reports cough that is productive, Airway is patent Trachea midline Respiratory effort is even, unlabored, Respiratory pattern is regular, Breath sounds are clear bilaterally. GI: Abdomen is flat, non-distended, Bowel sounds present X 4 quads. Abd is soft and non tender X 4 quads. Reports nausea. : No signs and/or symptoms were reported regarding the genitourinary system. Derm: Skin is intact, Skin is pink, warm \\T\\ dry. 19:45 Reassessment: Patient and/or family updated on plan of care and expected duration. Pain ea level reassessed. Patient is alert, oriented x 3, equal unlabored respirations, skin warm/dry/pink. General: Appears uncomfortable, Behavior is appropriate for age. Pain: Complains of pain in generalized pain Pain currently is 9 out of 10 on a pain scale. Neuro: Level of Consciousness is awake, alert, obeys commands, Oriented to person, place, time, situation. Cardiovascular: Patient's skin is warm and dry. Respiratory: Airway is patent Respiratory effort is even, unlabored, Respiratory pattern is regular, symmetrical, Breath sounds are clear bilaterally. GI: No signs and/or symptoms were reported involving the gastrointestinal system. Abdomen is non-distended, Bowel sounds present X 4 quads. : No signs and/or symptoms were reported regarding the genitourinary system. Derm: Skin is dry, Skin is normal, Skin temperature is warm. 20:40 Reassessment: Pt complaining of pain, reports she is unable to take tramadol "it makes ea me break out in hives, I can't take that", pt reports the only thing she is able to take is [place]. Pt states "I am not allergic to it, I just feel itchy sometimes', provider notified, verbal order obtained, pt tolerated medication well. 21:30 Reassessment: Patient and/or family updated on plan of care and expected duration. Pain ea level reassessed. Patient is alert, oriented x 3, equal unlabored respirations, skin warm/dry/pink. Discharge instructions given to patient, verbalized the understanding of instruction. Vital Signs: 18:14 BP 128 / 96; Pulse 126; Resp 19; Temp 99.3; Pulse Ox 99% on R/A; Weight 65.77 kg (R); tw2 Height 5 ft. 3 in. (160.02 cm); Pain 10/10; 18:47 BP 114 / 76; Pulse 102; Resp 18; Temp 99.8(O); Pulse Ox 99% on R/A; Pain 9/10; ch 20:30 BP 118 / 70; Pulse 98; Resp 19; Pulse Ox 100% on R/A; ea 21:30 BP 112 / 68; Pulse 78; Resp 19; Temp 98.7; Pulse Ox 98% on R/A; Pain 9/10; ea 18:14 Body Mass Index 25.68 (65.77 kg, 160.02 cm) tw2 18:14 headache, body ache, chest pain tw2 ED Course: 18:03 Patient arrived in ED. sb2 18:09 Triage completed. tw2 18:16 Arm band placed on. tw2 18:18 Leanne Draper, RN is Primary Nurse. ch 18:18 No apparent distress. Resting quietly. ch 18:18 Patient has correct armband on for positive identification. Placed in gown. Bed in low ch position. Call light in reach. Side rails up X 1. Pulse ox on. NIBP on. 18:18 No provider procedures requiring assistance completed. ch 18:25 Sima Cotto FNP-C is PHCP. snw 18:25 Mohinder Bautista MD is Attending Physician. snw 19:16 Report given to corrina. ch 19:50 Corrina Barrett, RN is Primary Nurse. ea 20:01 Patient moved to radiology via wheelchair. kc2 20:04 Chest Pa And Lat (2 Views) XRAY In Process Unspecified. EDMS 21:43 Patient did not have IV access during this emergency room visit. ea Administered Medications: 20:37 Not Given (Patient Refused; pt reports she is allergic to medication): UltRAM 50 mg PO ea once 20:39 Drug: [place] 5 mg-325 mg 1 tabs Route: PO; ea 21:20 Follow up: Response: No adverse reaction; Pain is decreased ea Outcome: 21:02 Discharge ordered by . snw 21:30 Discharged to home ambulatory, with family. ea 21:30 Condition: improved 21:30 Discharge instructions given to patient, Instructed on discharge instructions, follow up and referral plans. medication usage, Demonstrated understanding of instructions, follow-up care, medications, Prescriptions given X 2. 21:44 Patient left the ED. ea Signatures: Dispatcher [employer] EDMS Leanne Draper, RN RN Sima Cornell, ROAD MACHINERY INSPECTOR-C ROAD MACHINERY INSPECTOR-Csnw Josephine Murray RN RN tw2 Tonia Ordonez kc2 Corrina Barrett RN Ifrah Martinez ea sb2 Corrections: (The following items were deleted from the chart) 18:10 18:08 Presenting complaint: Patient states: this morning i had a really stuffy nose and tw2 my throat hurt, but i started feeling it yesterday with a sore throat tw2 18:10 18:08 Transition of care: patient was not received from another setting of care. tw2 tw2 18:10 18:08 Onset of symptoms was December 12, 2017 tw2 tw2 18:11 18:09 BP 135 / 81; Pulse 97bpm; Resp 18bpm; Pulse Ox 100% RA; Temp 98.9F Oral; 81.65 tw2 kg; Height 5 ft. 4 in.; BMI: 30.9; Pain 6/10; tw2 18:15 18:08 Acuity: MEHRDAD 4 tw2 tw2
--- NOTE | 2017-12-12 21:03 | EDPHYS ---
Physician Documentation [facility] Name: Marita Hernandez Age: 62 yrs Sex: Female : 1955 Arrival Date: 12/12/2017 Time: 18:03 Bed 19 Private MD: ED Physician Mohinder Bautista HPI: 12/12 19:51 This 62 yrs old Female presents to ER via Ambulatory with complaints of Flu snw Symptoms. 19:51 Onset: The symptoms/episode began/occurred acutely. Associated signs and symptoms: snw Pertinent positives: myalgias. Modifying factors: The patient symptoms are alleviated by nothing. The patient has not experienced similar symptoms in the past, but family has similar symptoms, granddaughter. The patient has not recently seen a physician. Historical: - Allergies: 18:10 Aspirin; tw2 18:10 Demerol; tw2 18:10 Dilaudid; tw2 18:10 NSAIDS; tw2 18:10 tramadol; tw2 - Home Meds: 18:16 Creon 36,000-114,000- 180,000 unit Oral cpDR 1 cap four times a day [Active]; Diovan 80 tw2 mg Oral tab 2 times per day [Active]; Lasix 40 mg Oral tab 1 tab once daily [Active]; [place] 10-325 mg Oral tab as needed [Active]; Phenergan Oral 25 mg as needed [Active]; potassium chloride 10 mEq Oral cpER 1 cap 2 times per day [Active]; Singulair 10 mg Oral tab 1 tab once daily [Active]; Zyrtec 10 mg Oral tab 1 tab as needed [Active]; - PMHx: 18:16 acid reflux; Hypertension; Pancreatitis; tw2 - PSHx: 18:16 nasal surg; tw2 - Immunization history:: Adult Immunizations up to date. - Social history:: Smoking status: Patient/guardian denies using tobacco. ROS: 19:50 Eyes: Negative for injury, pain, redness, and discharge. snw 19:50 Neck: Negative for injury, pain, and swelling, Cardiovascular: Negative for chest pain, palpitations, and edema. 19:50 Abdomen/GI: Negative for abdominal pain, nausea, vomiting, diarrhea, and constipation, Back: Negative for injury and pain, : Negative for injury, bleeding, discharge, and swelling, MS/Extremity: Negative for injury and deformity, Skin: Negative for injury, rash, and discoloration, Neuro: Negative for headache, weakness, numbness, tingling, and seizure. 19:50 Constitutional: Positive for body aches, fatigue, fever, malaise. 19:50 ENT: Positive for nasal discharge. 19:50 Respiratory: Positive for cough. Exam: 19:50 Head/Face: Normocephalic, atraumatic. Eyes: Pupils equal round and reactive to light, snw extra-ocular motions intact. Lids and lashes normal. Conjunctiva and sclera are non-icteric and not injected. Cornea within normal limits. Periorbital areas with no swelling, redness, or edema. ENT: Nares patent. No nasal discharge, no septal abnormalities noted. Tympanic membranes are normal and external auditory canals are clear. Oropharynx with no redness, swelling, or masses, exudates, or evidence of obstruction, uvula midline. Mucous membranes moist. Neck: Trachea midline, no thyromegaly or masses palpated, and no cervical lymphadenopathy. Supple, full range of motion without nuchal rigidity, or vertebral point tenderness. No Meningismus. Chest/axilla: Normal chest wall appearance and motion. Nontender with no deformity. No lesions are appreciated. 19:50 Respiratory: Lungs have equal breath sounds bilaterally, clear to auscultation and percussion. No rales, rhonchi or wheezes noted. No increased work of breathing, no retractions or nasal flaring. Abdomen/GI: Soft, non-tender, with normal bowel sounds. No distension or tympany. No guarding or rebound. No evidence of tenderness throughout. Back: No spinal tenderness. No costovertebral tenderness. Full range of motion. Skin: Warm, dry with normal turgor. Normal color with no rashes, no lesions, and no evidence of cellulitis. MS/ Extremity: Pulses equal, no cyanosis. Neurovascular intact. Full, normal range of motion. Neuro: Awake and alert, GCS 15, oriented to person, place, time, and situation. Cranial nerves II-XII grossly intact. Motor strength 5/5 in all extremities. Sensory grossly intact. Cerebellar exam normal. Normal gait. 19:50 Constitutional: The patient appears alert, awake, uncomfortable. 19:50 Cardiovascular: Rate: tachycardic, Rhythm: regular, Heart sounds: normal. Vital Signs: 18:14 BP 128 / 96; Pulse 126; Resp 19; Temp 99.3; Pulse Ox 99% on R/A; Weight 65.77 kg (R); tw2 Height 5 ft. 3 in. (160.02 cm); Pain 10/10; 18:47 BP 114 / 76; Pulse 102; Resp 18; Temp 99.8(O); Pulse Ox 99% on R/A; Pain 9/10; ch 20:30 BP 118 / 70; Pulse 98; Resp 19; Pulse Ox 100% on R/A; ea 21:30 BP 112 / 68; Pulse 78; Resp 19; Temp 98.7; Pulse Ox 98% on R/A; Pain 9/10; ea 18:14 Body Mass Index 25.68 (65.77 kg, 160.02 cm) tw2 18:14 headache, body ache, chest pain tw2 MDM: 18:25 Patient medically screened. snw 21:05 Data reviewed: vital signs, nurses notes. Data interpreted: Pulse oximetry: on room air snw is 99 %. Interpretation: normal. Counseling: I had a detailed discussion with the patient and/or guardian regarding: the historical points, exam findings, and any diagnostic results supporting the discharge/admit diagnosis, lab results, radiology results, the need for outpatient follow up, to return to the emergency department if symptoms worsen or persist or if there are any questions or concerns that arise at home. Special discussion: Based on the history and exam findings, there is no indication for further emergent testing or inpatient evaluation. I discussed with the patient/guardian the need to see the primary care provider for further evaluation of the symptoms. 12/12 18:33 Order name: Flu snw 12/12 18:33 Order name: Strep snw 12/12 18:33 Order name: Urine Culture snw 12/12 18:33 Order name: Urine Microscopic Only; Complete Time: 19:04 snw 12/12 18:33 Order name: Influenza Screen (A ; Complete Time: 19:04 EDMS 12/12 18:33 Order name: Group A Streptococcus Rapid Sc; Complete Time: 19:04 EDMS 12/12 18:33 Order name: Urine Dipstick-Ancillary (obtain specimen); Complete Time: 18:45 snw 12/12 18:48 Order name: Urine Dipstick--Ancillary (enter results); Complete Time: 19:04 ag 12/12 19:03 Order name: Throat Culture EDMS 12/12 19:49 Order name: Chest Pa And Lat (2 Views) XRAY; Complete Time: 20:12 snw Administered Medications: 20:37 Not Given (Patient Refused; pt reports she is allergic to medication): UltRAM 50 mg PO ea once 20:39 Drug: [place] 5 mg-325 mg 1 tabs Route: PO; ea 21:20 Follow up: Response: No adverse reaction; Pain is decreased ea Disposition: 12/12/17 21:02 Discharged to Home. Impression: Acute upper respiratory infection, unspecified, Viral infection, unspecified. - Condition is Stable. - Discharge Instructions: Fever, Adult, Upper Respiratory Infection, Adult, Viral Infections, Cool Mist Vaporizers, Rehydration, Adult. - Prescriptions for Zofran 4 mg Oral Tablet - take 1 tablet by ORAL route every 12 hours As needed; 6 tablet. Zyrtec 10 mg Oral Tablet - take 1 tablet by ORAL route once daily As needed; 20 tablet. - Medication Reconciliation Form, Thank You Letter, Antibiotic Education, Prescription Opioid Use form. - Follow up: Private Physician; When: 2 - 3 days; Reason: Recheck today's complaints, Continuance of care, Re-evaluation by your physician. Follow up: Emergency Department; When: As needed; Reason: Worsening of condition. Addendum: 12/18/2017 09:59 Co-signature as Attending Physician, Mohinder Bautista MD. r n Signatures: Dispatcher [employer] EDCA Sima Cotto, MANUAL LATHE MACHINIST-C MANUAL LATHE MACHINIST-Csnw Mohinder Bautista MD MD rn Wise, Tara RN RN tw2 Corrina Barrett RN RN tere
[2017-12-12 21:51] VITALS: BP 112/68; TEMP 98.7; O2SAT 98
== END 2017-12-12 21:44 | disposition home or self-care (01) ==
LOC: ER 18:01
DX: J06.9 Acute upper respiratory infection, unspecified (principal); B34.9 Viral infection, unspecified; I10 Essential (primary) hypertension; Z88.6 Allergy status to analgesic agent
CPT/HCPCS: 71046; 81003; 81015; 87070; 87077; 87081; 87086; 87088; 87186; 87804; 99284

== ENCOUNTER 2018-04-27 21:59 | Emergency (ER) | payer OTHER ==
--- OUTSIDE RECORDS SUMMARY | 2018-04-27 22:02 | XMS REPORT | Clinical Summary ---
:1955 Author Organization [facility] Address [address] [place] [address] Phone Care Team Providers Name Role Phone [...] for up to 10 days. aluminum & magnesium Take 30 mLs 355 mL 0 08/18/2017 08/28/2017 hydroxide-simethicone by mouth (MAALOX PLUS) every 6 400-400-40 mg/5 mL (six) hours suspension as needed for up to 10 days. Active Problems Problem Noted Date Chronic pancreatitis (HCC) 08/15/2017 Abdominal pain 08/15/2017 Encounters Date Type Specialty Care Team Description 08/15/2017 Hospital [facility], Epigastric pain - Encounter Medicine Shaheen Lam (Primary Dx);Other 08/19/2017 MD [place]onia chronic pancreatitis [place], (HCC);[facility] hypertension;Clifford Hua MD n of temporomandibular joint, initial encounter 08/15/2017 Anesthesia Event Gastroenterology Ambrose Polanco MD 08/15/2017 Procedure Pass Gastroenterology 08/15/2017 Surgery Gastroenterology [place], ERCP Shaheen Randall MD 06/12/2017 Hospital G[facility]enter[facility] [place], Encounter Shaheen Randall MD 06/12/2017 Procedure Pass Gastroenterology 06/12/2017 Surgery Gastroenterology [place], UPPER ENDOSCOPY,FNA Shaheen Lam W/ULTRASOUND MD [place] 06/09/2017 Anesthesia Event Gastroenterology [place], Karlos eDleon MD after 04/26/2017 Immunizations Name Dates Previously Given Next Due Influenza Three-TIV PF 5+ YR 08/16/2017 Social History Tobacco Use Types Packs/Day Years Used Date Never Smoker Smokeless Tobacco: Never Used Alcohol Use Drinks/Week oz/Week Comments No Sex Assigned at Date Recorded Not on file Last Filed Vital Signs Vital Sign Reading Time Taken Blood Pressure 108/70 08/19/2017 11:43 AM [employer]Y [employer]GAL COUNSEL Pulse 81 08/19/2017 11:43 AM AGENCY LEGAL COUNSEL Temperature 36.7 C (98.1 F) 08/19/2017 11:43 AM AGENCY LEGAL COUNSEL Respiratory Rate 20 08/19/2017 11:43 AM AGENCY LEGAL COUNSEL Oxygen Saturation 97% 08/19/2017 11:43 AM AGENCY LEGAL COUNSEL Inhaled Oxygen Concentration - - Weight 64.3 kg (141 lb 12.8 oz) 08/15/2017 12:19 PM AGENCY LEGAL COUNSEL Height 160 cm (5' 3") 08/15/2017 12:19 PM AGENCY LEGAL COUNSEL Body Mass Index 25.12 08/15/2017 12:19 PM AGENCY LEGAL COUNSEL Plan of Treatment Not on file Procedures Procedure Name Priority Date/Time Associated Diagnosis Comments PROCEDURE W/ C-ARM 08/15/2017 1:00 PM [employer]Y [employer]GAL COUNSEL Biliary pain Special Needs (C-ARM) ERCP 08/15/2017 1:00 PM AG[employer]Y LEGAL COUNSEL Biliary pain Special Needs (C-ARM) UPPER ENDOSCOPY,FNA W/ULTRASOUND 06/12/2017 2:30 PM CDT Chronic abdominal pain Special Needs (LINEAR SCOPE) after 04/26/2017 Results XR temporomandibular joint bilateral (08/17/2017 4:56 [...] MD Report Verified Date/Time:08/17/2017 17:16:54 Reading Location: [facility] Radiology Reading Room Procedure Note Interface, External Ris In - 08/17/2017 5:19 PM AGENCY LEGAL COUNSEL FINAL REPORT TECHNIQUE: Open and closed mouth views of both temporomandibular joints dated 08/17/2017. HISTORY: Status post reduction. COMPARISON: No mandibular radiographs dated 08/16/2017. IMPRESSION: There has been interval relocation of the right temporomandibular joint. Left temporal mandibular joint is unremarkable in appearance. No visualized fracture. Signed: Myriam Velez MD Report Verified Date/Time: 08/17/2017 17:16:54 Reading Location: [facility] Radiology Reading Room Sedimentation rate (08/17/2017 5:25 AM) Component Value Ref Range Sed Rate 51 (H) 0 - 30 mm/HR Specimen Performing Laboratory Blood [address] [address] Anti-Nuclear Antibody (TING) (08/16/2017 12:07 PM) Component Value Ref Range TING Negative Negative Specimen Performing Laboratory Blood [address] [address] Phosphorus (08/16/2017 6:12 AM) Component Value Ref Range Phosphorus 3.1 2.3 - 4.7 mg/dL Specimen Performing Laboratory Blood - Arm, [address] [address] Magnesium (08/16/2017 6:12 AM) Component Value Ref Range Magnesium 1.7 1.6 - 2.6 mg/dL Specimen Performing Laboratory Blood - Arm, [address] [address] Hepatic function panel (08/16/2017 6:12 AM) Component Value Ref Range Protein, Total 6.8 6.0 - 8.3 gm/dL Albumin 3.6 3.5 - 5.0 g/dL Total Bilirubin 0.5 0.2 - 1.2 mg/dL Bilirubin, Direct 0.2 0.1 - 0.5 mg/dL Alkaline Phosphatase 96 40 - 150 U/L AST 74 (H) 5 - 34 U/L ALT 38 6 - 55 U/L Specimen Performing Laboratory Blood - Arm, [address] [address] Basic metabolic panel (08/16/2017 6:12 AM) Component [...] PATIENTS. Specimen Performing Laboratory Blood - Arm, [address] [address] Manual Differential (08/16/2017 5:59 AM) Component Value Ref Range Total Counted WBC Morphology Normal Platelet Morphology Normal RBC Morphology Normal Specimen Performing Laboratory Blood - Arm, [address] [address] CBC with platelet count + automated diff [...] % Specimen Performing Laboratory Blood - Arm, [address] [address] CBC with platelet count + automated diff (08/16/2017 5:59 AM) Specimen Performing Laboratory Blood Narrative The following orders were created for panel order CBC with platelet count + automated diff. Procedure Abnormality Status --------- ------ CBC with platelet count ...[[id number]]AbnormalFinal result Manual Differential[[id number]] Fi nal result Please view results for [...] MD Report Verified Date/Time:08/15/2017 16:10:57 Reading Location: [address] Radiology Reading Room Procedure Note Interface, External Ris In - 08/15/2017 4:13 PM AGENCY LEGAL COUNSEL FINAL REPORT ERCP. CLINICAL HISTORY: dilated ducts. [...] Report Verified Date/Time: 08/15/2017 16:10:57 Reading Location: [address] Radiology Reading Room -Potassium (06/12/2017 1:34 PM) Component Value Ref Range POC-Potassium 3.9Comment: TESTED AT [address] 3.6 - 5.5 meq/L [address] Specimen Performing Laboratory Blood [facility] [address] [address] after 04/26/2017
--- OUTSIDE RECORDS SUMMARY | 2018-04-27 22:02 | XMS REPORT | Clinical Summary ---
:1955 Author Organization [facility] Address [address] [place] [address] Care Team Providers Name Role Phone Kevin [...] per tablet MOUTH FOUR TIMES A DAY. furosemide (LASIX) 40 Take 40 mg by Active mg tablet mouth 2 (two) times a day. HYDROcodone-acetaminop as needed for 01/30/2018 Active hen (NORCO) 10-325 mg Pain. per tablet cephalexin (KEFLEX) Take 1 capsule 8 capsule [...] to 30 days. To begin after surgery allopurinol (ZYLOPRIM) Take 1 tablet 30 tablet 0 12/19/2017 01/18/2018 100 MG (100 mg total) tabletIndications: by mouth daily Wrist arthritis for 30 days. Take 1 tab PO daily HYDROcodone-acetaminop Take 1-2 40 tablet 0 12/28/2017 02/27/2018 hen (NORCO) 5-325 mg tablets by per tablet mouth every 6 (six) hours as needed (pain) for up to 40 doses Earliest Fill Date: 12/28/17. Max Daily Amount: 8 tablets Active Problems No known active problems Resolved Problems Problem Noted Date Resolved Date DRUJ (distal radioulnar joint) arthrosis, primary, left 12/19/2017 03/20/2018 Overview: Added automatically from request for surgery [id number] Encounters Date Type Specialty Care Team Description 04/16/2018 Office Visit Orthopedic Surgery Taye Nava Complete tear of left WMD Corrina rotator cuff (Primary Dx) 03/20/2018 Office Visit Orthopedic Surgery Bar Bazzi Left wrist pain ( Primary Dx); Cal MARINELLI MD DRSILVER (distal radioulnar joint) arthrosis, primary, left 02/13/2018 Office Visit Orthopedic Surgery Bar Bazzi (distal radioulnar Cal MARINELLI MD joint) arthrosis, primary, left (Primary Dx) 02/13/2018 Office Visit Orthopedic Surgery Taye Nava Complete tear of left MD Daquan rotator cuff (Primary Dx) 01/31/2018 Orders Only Orthopedic Surgery Aron, Tear of right rotator cuff , unspecified tear extent (Primary Dx); EASTON Kaye Complete rotator cuff tear of left shoulder 01/30/2018 Telephone Orthopedic Surgery Bar Bazzi III, MD 01/16/2018 Office Visit Orthopedic Surgery Taye Nava Complete tear of left MD Daquan rotator cuff (Primary Dx) 01/16/2018 Office Visit Orthopedic Surgery Bar Bazzi Arthritis of left wrist (Primary Dx); Cal MARINELLI MD Post-operative state 01/08/2018 Refill Orthopedic Bar Herrera Wrist arthritis Cal MARINELLI MD 01/08/2018 Orders Only Orthopedic Surgery Bar Bazzi III, MD [facility] Cal MARINELLI MD 12/28/2017 Procedure Pass General Surgery 12/28/2017 Surgery General Surgery Bar Bazzi LEFT DARRACH PROCEDURE Cal MARINELLI MD 12/27/2017 Anesthesia Event General Surgery Anjelica Pérez, RETORT FURNACE HELPER 12/25/2017 Pre-Admit Testing Pre-Admission Bar Bazzi Preop testing ( Primary Appointment Testing Cal MARINELLI MD Dx) 12/19/2017 Office Visit Orthopedic Surgery Bar Bazzi Wrist arthritis ( Primary Dx); Cal MARINELLI MD Chronic gout of multiple sites, unspecified cause 12/19/2017 Transcribe Orders Orthopedic Surgery Bar Bazzi DRUJ ( distal radioulnar Cal MARINELLI MD joint) arthrosis, primary, left (Primary Dx) 11/30/2017 Procedure visit Neurology Bar Bazzi Bilateral [...] left MD Daquan rotator cuff (Primary Dx) 2017 Hospital Radiology Taye Nava MD 2017 Procedure Pass Radiology 2017 Ancillary Orders Radiology Taye Nava MD 10/05/2017 Office Visit Orthopedic Surgery Peluse, Complete tear of left rotator cuff (Primary Dx); Janes Daly, Other secondary osteoarthritis of left wrist PA Taye Nava MD 09/28/2017 Telephone Anesthesiology Shannan Dacosta RN 09/27/2017 [facility] General Surgery Taye Nava MD 09/27/2017 Procedure Pass General Surgery 09/27/2017 Surgery General Surgery Taye Nava LEFT ARTHROSCOPY OF THE MD Daquan SHOULDER WITH DECOMPRESSION, ACROMIOCLAVICULAR RESECTION, AND ROTATOR CUFF REPAIR 09/25/2017 Hospital Radiology Jeremias Mueller Encounter ALLYSSA Daly temporomandibular joint pain 09/25/2017 Orders Only Orthopedic Surgery Janes Saavedra PA 09/22/2017 Pre-Admit Testing Pre-Admission Taye Nava Preop testing ( Primary Appointment Testing MD Daquan Dx) 09/21/2017 Anesthesia Event General Surgery Anjelica Pérez FNP 09/14/2017 Office Visit Orthopedic Surgery Taye Nava Complete tear of left MD Daquan rotator cuff (Primary Dx) 09/14/2017 Procedure Pass Radiology 09/14/2017 Transcribe Orders Access Jeremias Mueller DDS temporomandibular joint pain (Primary Dx) after 04/26/2017 Family History Medical History Relation Name Comments [...] Vital Sign Reading Time Taken Blood Pressure 131/75 12/28/2017 12:24 PM CDT Pulse 80 12/28/2017 12:24 PM CDT Temperature 36.1 C (97 F) 12/28/2017 12:07 PM CDT Respiratory Rate 17 12/28/2017 12:24 PM CDT Oxygen Saturation 95% 12/28/2017 12:24 PM CDT Inhaled Oxygen Concentration - - Weight 65.8 kg (145 lb) 03/20/2018 9:58 AM CDT Height 160 cm (5' 3") 03/20/2018 9:58 AM CDT Body Mass Index 25.69 03/20/2018 9:58 AM CDT Plan of Treatment Health Maintenance Due Date Last Done Comments CERVICAL CANCER SCREENING 1977 BREAST CANCER SCREENING 2006 COLON CANCER SCREENING 2006 SHINGRIX VACCINE (#1) 2006 ZOSTER VACCINE 2016 INFLUENZA VACCINE 04/04/2018 Implants Implanted Type Area Package Sealer Device Expiration Model / Identifier Date Serial / Lot Cotton Sut Pushlock Kntls Peek 4.5x24mm - [id number] Orthopedic Left: [employer] 03/03/2022 AR [id number] / Implanted: 09/27/2017 (Quantity not on file) Trauma Shoulder / Implants [id number] Cotton Sut Pushlock Kntls Peek 4.5x24mm - [id number] Orthopedic Left: [employer] 03/03/2022 AR [id number] / Implanted: 09/27/2017 (Quantity not on file) Trauma Shoulder / Implants [id number] Cotton Sut Healix Knotless Br Biocmpst W/ Orthocord 5.5mm - [id number] Orthopedic Left: DEPUY MITEK 05/04/2020 [id number] / Implanted: 09/27/2017 (Quantity not on file) Trauma Shoulder / Implants [id number] Procedures Procedure Name Priority Date/Time Associated Comments Diagnosis XR WRIST 3+ VW LEFT Routine 03/20/2018 10:27 Left wrist pain Results for this AM CDT procedure are in the results section. XR WRIST 3+ VW LEFT Routine 01/16/2018 8:51 Arthritis of left Results for this AM CDT wrist procedure are in the results section. [place] > 1 HOUR Routine 12/28/2017 10:30 Results for this AM CDT procedure are in the results section. RI AN ELECTIVE Routine 12/28/2017 9:53 SUPRAGLOTTIC AIRWAY AM CDT Procedure Note - Anatoly Grider CRNA - 12/28/2017 9:53 AM CDT Airway Date/Time: 12/28/2017 9:36 AM Performed by: ANATOLY GRIDER Authorized by: SUMEET SORIA Location: OR Urgency: Elective Difficult Airway: No Anesthesiologist: SUMEET SORIA Resident/LANDFILL GAS TECHNICIAN/AA: ANATOLY GRIDER Performed by: anesthesiologist and resident/LANDFILL GAS TECHNICIAN/AA Preoxygenated with 100% O2: Yes C-spine Precautions Maintained Throughout: Yes Mask Ventilation: Not attempted Final Airway Type: Supraglottic airway Final LMA: Classic LMA Size: 3 Number of Attempts at Approach: 1 POC GLUCOSE Routine 12/28/2017 8:06 AM Results for this CDT procedure are in the results section. ESTIMATED GFR Routine 12/25/2017 11:50 AM Results for this CDT procedure are in the results section. BASIC METABOLIC PANEL Routine 12/25/2017 11:50 AM Preop testing Results for this CDT procedure are in the results section. HC COMPLETE BLD COUNT Routine 12/25/2017 11:15 AM Preop testing Results for this W/AUTO DIFF CDT procedure are in the results section. ECG 12-LEAD Routine 12/25/2017 10:42 AM Preop testing Results for this CDT procedure are in the results section. C-REACTIVE PROTEIN Routine 11/27/2017 11:22 AM Results for this CDT procedure are in the results section. RHEUMATOID FACTOR Routine 11/27/2017 11:22 AM Results for this CDT procedure are in the results section. CYCLIC CITRULLINATED Routine 11/27/2017 11:22 AM Results for this PEPTIDE AB, IGG CDT procedure are in the results section. SSA/SSB ANTIBODY Routine 11/27/2017 11:22 AM Results for this CDT procedure are in the results section. DNA AB SCREEN Routine 11/27/2017 11:22 AM Results for this CDT procedure are in the results section. TING SCREEN W IFA W Routine 11/27/2017 11:22 AM Results for this REFLEX TO TITER CDT procedure are in the results section. CBC WITH PLATELET AND Routine 11/27/2017 11:22 AM Results for this DIFFERENTIAL CDT procedure are in the results section. SEDIMENTATION RATE Routine 11/27/2017 11:22 AM Results for this CDT procedure are in the results section. COMPREHENSIVE METABOLIC Routine 11/27/2017 11:22 AM Results for this PANEL CDT procedure are in the results section. URIC ACID LEVEL Routine 11/27/2017 11:22 AM Results for this CDT procedure are in the results section. RI ARTHROCENTESIS Routine 11/24/2017 10:30 AM Arthritis of left Results for this ASPIR&/INJ INTERM CDT wrist procedure are in JT/BURS W/O US the results section. XR WRIST 3+ VW LEFT Routine 11/24/2017 10:13 AM Left wrist pain Results for this CDT procedure are in the results section. RI AN PERIPHERAL BLOCK Routine 09/27/2017 7:55 AM POST-OP PAIN PALLET RECTIFIER Procedure Note - Karlos Khoury MD - 09/27/2017 7:54 AM PALLET RECTIFIER Peripheral Block Performed by: KARLOS KHOURY Authorized [...] before procedure 20cc 0.5N and 4md Decadron POC GLUCOSE Routine 09/27/2017 7:40 Results for AM PALLET RECTIFIER this procedure are in the results section. MRI TEMPOROMANDIBULAR Routine 09/25/2017 11:05 Bilateral Results for JOINTS AM PALLET RECTIFIER temporomandibular joint this procedure pain are in the results section. ESTIMATED GFR Routine 09/22/2017 11:03 Results for AM PALLET RECTIFIER this procedure are in the results section. HC COMPLETE BLD COUNT Routine 09/22/2017 11:03 Preop testing Results for W/AUTO DIFF AM PALLET RECTIFIER this procedure are in the results section. BASIC METABOLIC PANEL Routine 09/22/2017 11:03 Preop testing Results for AM PALLET RECTIFIER this procedure are in the results section. after 04/26/2017 Results XR Wrist 3+ Vw Left (03/20/2018 10:27 AM)Only the most recent of3 resultswithin the time period is included. Narrative Performed At PA, lateral, and oblique views of the left wrist demonstrate expected [facility] appearance after distal ulnar resection. No visible fractures. No evidence of distal ulnar instability. Performing Organization Address City/State/Zipcode Phone Number [facility] [address] [place] [address] [place] > I Hour (12/28/2017 10:30 AM) Narrative Performed At EXAMINATION:[place] 1 HOUR [facility] CLINICAL HISTORY:intraoperative IMPRESSION: Fluoroscopy was provided. No radiologist present.Please see procedure report for discussion of procedure, findings. [facility]-[id number] Procedure Note Hm Interface, Radiology Results Incoming - 12/28/2017 10:40 AM CDT EXAMINATION: [place] 1 HOUR CLINICAL HISTORY: intraoperative IMPRESSION: Fluoroscopy was provided. No radiologist present. Please see procedure report for discussion of procedure, findings. [facility]-[id number] Performing Organization Address City/State/Zipcode Phone Number [facility] [address] [place] [address] POC glucose (12/28/2017 8:06 AM)Only the most recent of2 resultswithin the time period is included. POC glucose 95 65 - 99 mg/dL [facility] DEPARTMENT OF PATHOLOGY AND Comment: GCD Systeme MEDICINE Meter ID: [id number] Cardiovascular Specialist: Bard Clark Performing Organization Address [facility] Phone Number [facility] DEPARTMENT OF PATHOLOGY [address] [place] [phone] AND Disruptor Beam Estimated GFR (12/25/2017 11:50 AM)Only the most recent of2 resultswithin the time period is included. GFR Non Af Amer 56 (A) mL/min/1.73 m2 [facility] DEPARTMENT OF PATHOLOGY AND GENOMIC MEDICINE GFR Af Amer 68 mL/min/1.73 m2 [facility] DEPARTMENT OF Comment: PATHOLOGY AND GENOMIC Chronic kidney disease: <60 mL/min/1.73m2 MEDICINE Kidney failure: <15 mL/min/1.73m2 The estimated GFR is calculated from the IDMS-traceable Modification of Diet in Renal Disease Equation. The accuracy of the calculation is poor when the creatinine is normal. Calculated values >90 mL/min/1.73m2 are not reported. This equation has not been validated in children (<18 years), women, the elderly (>70 years), or ethnic groups other than Caucasians and Americans. Specimen Plasma specimen Performing Organization Address [facility] Phone Number [facility] DEPARTMENT OF PATHOLOGY [address] [place] [phone] AND Disruptor Beam Basic metabolic panel (12/25/2017 11:50 AM)Only the most recent of2 resultswithin the time period is included. Sodium 143 135 - 148 mEq/L [facility] DEPARTMENT OF PATHOLOGY AND GENOMIC MEDICINE Potassium 5.2 (H) 3.5 - 5.0 mEq/L [facility] DEPARTMENT OF PATHOLOGY AND GENOMIC MEDICINE Chloride 103 98 - 112 mEq/L [facility] DEPARTMENT OF PATHOLOGY AND GENOMIC MEDICINE CO2 28 24 - 31 mEq/L [facility] DEPARTMENT OF PATHOLOGY AND GENOMIC MEDICINE Anion gap 12 7 - 15 mEq/L [facility] DEPARTMENT OF Comment: PATHOLOGY AND GENOMIC Starting from December , anion gap calculation MEDICINE no longer incorporates potassium. Please note the change. BUN 29 (H) 8 - 23 mg/dL [facility] DEPARTMENT OF PATHOLOGY AND GENOMIC MEDICINE Creatinine 1.0 (H) 0.5 - 0.9 mg/dL [facility] DEPARTMENT OF PATHOLOGY AND GENOMIC MEDICINE Glucose 96 65 - 99 mg/dL [facility] DEPARTMENT OF PATHOLOGY AND GENOMIC MEDICINE Calcium 9.6 8.8 - 10.2 mg/dL [facility] DEPARTMENT OF PATHOLOGY AND GENOMIC MEDICINE Specimen Plasma specimen Performing Organization Address City/State/Zipcode Phone Number [facility] DEPARTMENT OF PATHOLOGY [address] [place] [address] AND GENOMIC MEDICINE CBC with platelet and differential (12/25/2017 11:15 AM)Only the most recent of3 resultswithin the time period is included. WBC 7.7 4.5 - 11.0 k/uL [facility] DEPARTMENT OF PATHOLOGY AND GENOMIC MEDICINE RBC 4.30 4.20 - 5.50 m/uL [facility] DEPARTMENT OF PATHOLOGY AND GENOMIC MEDICINE HGB 13.0 12.0 - 16.0 g/dL [facility] DEPARTMENT OF PATHOLOGY AND GENOMIC MEDICINE HCT 40.4 37.0 - 47.0 % [facility] DEPARTMENT OF PATHOLOGY AND GENOMIC MEDICINE MCV 94.0 82.0 - 100.0 fL [facility] DEPARTMENT OF PATHOLOGY AND GENOMIC MEDICINE MCH 30.2 27.0 - 34.0 pg [facility] DEPARTMENT OF PATHOLOGY AND GENOMIC MEDICINE MCHC 32.2 31.0 - 37.0 g/dL [facility] DEPARTMENT OF PATHOLOGY AND GENOMIC MEDICINE RDW - SD 43.5 37.0 - 55.0 fL [facility] DEPARTMENT OF PATHOLOGY AND GENOMIC MEDICINE MPV 10.6 6.9 - 11.0 fL [facility] DEPARTMENT OF PATHOLOGY AND GENOMIC MEDICINE Platelet count 420 (H) 150 - 400 K/uL [facility] DEPARTMENT OF PATHOLOGY AND GENOMIC MEDICINE Nucleated RBC 0.00 /100 WBC [facility] DEPARTMENT OF PATHOLOGY AND GENOMIC MEDICINE Neutrophils 69.3 (H) 39.0 - 69.0 % [facility] DEPARTMENT OF PATHOLOGY AND GENOMIC MEDICINE Lymphocytes 18.5 (L) 25.0 - 45.0 % [facility] DEPARTMENT OF PATHOLOGY AND GENOMIC MEDICINE Monocytes 6.2 0.0 - 10.0 % [facility] DEPARTMENT OF PATHOLOGY AND GENOMIC MEDICINE Eosinophils 4.7 0.0 - 5.0 % [facility] DEPARTMENT OF PATHOLOGY AND GENOMIC MEDICINE Basophils 0.9 0.0 - 1.0 % [facility] DEPARTMENT OF PATHOLOGY AND GENOMIC MEDICINE Immature granulocytes 0.4 0.0 - 1.0 % [facility] DEPARTMENT OF PATHOLOGY AND GENOMIC MEDICINE Specimen Blood Performing Organization Address City/[facility] Phone Number [facility] DEPARTMENT OF PATHOLOGY [address] [place] [address] AND [employer]CD System[employer] MEDICINE ECG 12 lead (12/25/2017 10:42 AM) Ventricular rate 69 [facility] Atrial rate 69 [facility] RI interval 180 [facility] QRSD interval 76 [facility] QT interval 388 [facility] QTC interval 415 [facility] P axis 1 33 [facility] QRS axis 1 -7 [facility] T wave axis 66 [facility] EKG impression Normal sinus rhythm-Normal ECG-In automated [facility] comparison with ECG of 27-APR-2016 10:48,-No significant change was found- Performing Organization Address [facility] Phone Number [facility] [address] [place] [address] TING SCREEN W IFA W REFLEX TO TITER (11/27/2017 11:22 AM) TING screen NEGATIVE NEGATIVE [facility] II Comment: TING IFA is a first line screen for detecting the presence of up to approximately 150 autoantibodies in various autoimmune diseases. A negative ITNG IFA result suggests TING-associated autoimmune diseases are not present at this time. Visit Physician FAQs for interpretation of all antibodies in the [place], prevalence, and association with diseases at http://education.CANWE STUDIOS/ faq/BQS289 Narrative Performed At FASTING: UNKNOWN [facility] Resulting Agency Comment Performing Organization Information: Site ID: IG Name: [facility] Address: [address] [place] [address] Director: Dr. Jos Santana Performing Organization Address City/State/Zipcode Phone Number [facility] II [address] [place] [address], [place] [address] SSA/SSB antibody (11/27/2017 11:22 AM) Sjogren's SS-A antibody <1.0 NEG <1.0 NEG AI [facility] II Sjogren's SS-B antibody <1.0 NEG <1.0 NEG AI [facility] Narrative Performed At FASTING: UNKNOWN [facility] Resulting Agency Comment Performing Organization Information: Site ID: IG Name: [facility] Address: [address] [place] [phone] Director: Dr. Jos Santana Performing Organization Address [facility] Phone Number [employer] [address] DNA Ab screen (11/27/2017 11:22 AM) DNA ds antibody 1 IU/mL [facility] II Comment: IU/mL Interpretation < or=4Negative 5-9 Indeterminate > or=10 Positive Narrative Performed At FASTING: UNKNOWN [facility] Resulting Agency Comment Performing Organization Information: Site ID: IG Name: [facility] Address: [address] [place] [phone] Director: Dr. Jos Santana Performing Organization Address [facility] Phone Number [facility] II [address] [place] [address] Cyclic citrullinated peptide antibody, IgG (11/27/2017 11:22 AM) Cyclic citrullin peptide <16 UNITS [facility] Comment: II Reference Range Negative:<20 Weak Positive: 20-39 Moderate Positive: 40-59 Strong Positive: >59 Narrative Performed At FASTING: UNKNOWN [facility] Resulting Agency Comment Performing Organization Information: Site ID: IG Name: [facility] Address: [address] [place] [address], [place] [address] Director: Dr. Jos Santana Performing Organization Address [facility] Cent[facility]ode Phone Number [facility] Provider Resource HoldingsJIM II [address] [place] [address] Sedimentation rate (11/27/2017 11:22 AM) Sedimentation rate 8 < OR=30 mm/h [facility] [place] Narrative Performed At FASTING: UNKNOWN [facility] Resulting Agency Comment Performing Organization Information: Site ID: RGA Name: [facility] Address: [address] [place] [address] Director: Ju Rendon MD Performing Organization Address [facility] Centercode [place] [address] Rheumatoid factor (11/27/2017 11:22 AM) Rheumatoid factor <14 <14 IU/mL [facility] [place] Narrative Performed At FASTING: UNKNOWN [facility] Resulting Agency Comment Performing Organization Information: Site ID: DEMIA Name: [facility] Address: [address] [place] [address] Director: Ju Rendon MD Performing Organization Address [facility] Centercode [place] [address] C-reactive protein (11/27/2017 11:22 AM) CRP 4.1 <8.0 mg/L [employer] [place] Narrative Performed At FASTING: UNKNOWN [facility] Resulting Agency Comment Performing Organization Information: Site ID: RGA Name: [facility] Address: [address] [place] [address] Director: Ju Rendon MD Performing Organization Address [facility] Cent[facility] [place] [address] Uric acid level (11/27/2017 11:22 AM) Uric acid 9.8 (H) 2.5 - 7.0 mg/dL [facility] [place] Comment: Therapeutic target for gout patients: <6.0 mg/dL Narrative Performed At FASTING: UNKNOWN [facility] Resulting Agency Comment Performing Organization Information: Site ID: DEMIA Name: [facility] Address: [address] [place] [phone] Director: Ju Rendon MD Performing Organization Address [facility]/Zipcode [place] [address] Comprehensive metabolic panel (11/27/2017 11:22 AM) Glucose 81 65 - 99 mg/dL [employer] [facility] Comment: [place] Fasting reference interval BUN, whole blood 30 (H) 7 - 25 mg/dL [facility] [place] Creatinine 0.99 0.50 - 0.99 [facility] Comment: mg/dL [place] For patients >49 years of age, the reference limit for Creatinine is approximately 13% higher for people identified as -Canadian. EGFR Non-Afr. Canadian 61 > OR=60 [facility] mL/min/1.73m2 [place] EGFR 71 > OR=60 [facility] mL/min/1.73m2 [place] BUN/creatinine ratio 30 (H) 6 - 22 (calc) [facility] [place] Sodium 144 135 - 146 mmol/L [facility] [place] Potassium 4.3 3.5 - 5.3 mmol/L [facility] [place] Chloride 106 98 - 110 mmol/L [employer] [place] CO2 27 20 - 31 mmol/L [facility] [place] Calcium 9.4 8.6 - 10.4 mg/dL [facility] [place] Protein 7.4 6.1 - 8.1 g/dL [facility] [place] Albumin, S 4.0 3.6 - 5.1 g/dL [facility] [place] Globulin, total 3.4 1.9 - 3.7 g/dL [facility] (calc) [place] Albumin/globulin ratio 1.2 1.0 - 2.5 (calc) [facility] [place] Total bilirubin 0.3 0.2 - 1.2 mg/dL [facility] [place] Alkaline phosphatase 88 33 - 130 U/L [facility] [place] AST 18 10 - 35 U/L [facility] [place] ALT 18 6 - 29 U/L [facility] [place] Narrative Performed At FASTING: UNKNOWN [facility] Resulting Agency Comment Performing Organization Information: Site ID: RGA Name: [facility] Address: [address] [place] [phone] Director: Ju Rendon MD Performing Organization Address City/State/Zipcode Phone Number [employer] [address] [address] Medium Joint Arthrocentesis (11/24/2017 10:30 AM) Narrative Performed At Bar Bazzi III, MD 11/24/2017 12:57 PM Medium Joint Arthrocentesis Supporting Documentation Indications: pain Procedure Details Preparation: Patient was prepped and draped in the usual sterile fashion Location: wrist - Wrist joint: left distal radioulnar joint. MRI Temporomandibular Joints (09/25/2017 11:05 AM) Narrative Performed At EXAMINATION:MRI TEMPOROMANDIBULAR JOINTS RADIANT CLINICAL HISTORY:M26.623 Arthralgia of bilateral temporomandibular joint, [...] closed mouth views. Small osteophyte of the gamaliel bular condyle. No joint effusion or marrow edema. [...] the right temporomandibular joint as detailed above. [id number] Procedure Note Hm Interface, Radiology Results [facility] - 09/25/2017 12:02 PM PALLET RECTIFIER EXAMINATION: MRI TEMPOROMANDIBULAR JOINTS CLINICAL HISTORY: M26.623 [...] the right temporomandibular joint as detailed above. [id number] Performing Organization Address City/State/Zipcode Phone Number [facility] [address] [place] [address] after 04/26/2017 Insurance Payer Benefit Plan / Group Subscriber ID Type Phone Address MEDICARE MEDICARE PART A AND B xxxxxxxxxx Medicare [place], [place] MEDICAID MEDICAID xxxxxxxxx Medicaid [phone] [id number]
--- OUTSIDE RECORDS SUMMARY | 2018-04-27 22:02 | XMS REPORT ---
:1955 [facility] Address [address] [place] [address] Care Team Providers Name Role Phone ZBARINA STALLWORTH Unavailable Unavailable Problems This patient has no known problems. Allergies, Adverse Reactions, Alerts This patient has no known allergies or adverse reactions. Medications This patient has no known medications. Results Test Description Test Time Test Comments Text Results Atomic Results Result Comments RAD, TEMPOROMANDIBULAR 2017-08-17 Reason for FINAL REPORT PATIENT ID: JOINT, BILATERAL 17:16:00 exam:->s/p [id number] TECHNIQUE: reduction Open and closed mouth views of both temporomandibular joints dated 08/17/2017. HISTORY: Status post reduction. COMPARISON: No mandibular radiographs dated 08/16/2017. IMPRESSION:There has been interval relocation of the right temporomandibular joint. Left temporal mandibular joint is unremarkable in appearance. No visualized fracture. Signed: Myriam Velez MDReport Verified Date/Time: 08/17/2017 17:16:54 Reading Location: [facility] Radiology Reading Room -NUCLEAR ANTIBODY (TING) 2017-08-17 14:15:00 Test Item Value Reference Range Comments ANTI-NUCLEAR ANTIBODY (TING) (BEAKER) (test reoq=253) Negative Negative SEDIMENTATION [id number] 09:30:00 Test Item Value Reference Range Comments SEDIMENTATION RATE, ERYTHROCYTE (BEAKER) (test 51 mm/HR 0-30 dhgp=413) RAD, TEMPOROMANDIBULAR JOINT, [id number] 18:19:00Reason for exam:-> lock jawFINAL REPORT TECHNIQUE: [...] MDReport Verified Date/Time: 08/16/2017 18:19:33 Reading Location: [address] Consult Reading Room Electronically signed by: TERRI CHIRINOS MD on 2016 06:19 PMCBC W/PLT COUNT & AUTO [id number] 11:27:00 Test Item Value Reference Range Comments WHITE BLOOD CELL COUNT (BEAKER) (test jkwq=967) 8.8 K/ L 3.5-10.5 RED BLOOD CELL COUNT (BEAKER) (test lhqk=597) 3.72 M/ L 3.93-5.22 HEMOGLOBIN (BEAKER) (test wmvm=929) 11.7 GM/DL 11.2-15.7 HEMATOCRIT (BEAKER) (test osph=837) 37.9 % 34.1-44.9 MEAN CORPUSCULAR VOLUME (BEAKER) (test kgpc=119) 101.9 fL 79.4-94.8 MEAN CORPUSCULAR HEMOGLOBIN (BEAKER) (test 31.5 pg 25.6-32.2 fozq=664) MEAN CORPUSCULAR HEMOGLOBIN CONC (BEAKER) (test 30.9 GM/DL 32.2-35.5 kvcs=192) RED CELL DISTRIBUTION WIDTH (BEAKER) (test 12.9 % 11.7-14.4 goil=935) PLATELET COUNT (BEAKER) (test ignc=879) 181 K/CU MM 150-450 MEAN PLATELET VOLUME (BEAKER) (test bdoc=187) 11.1 fL 9.4-12.3 NUCLEATED RED BLOOD CELLS (BEAKER) (test 0 /100 WBC 0-0 tyby=013) NEUTROPHILS RELATIVE PERCENT (BEAKER) (test 75 % fvdd=721) LYMPHOCYTES RELATIVE PERCENT (BEAKER) (test 16 % hxyh=236) MONOCYTES RELATIVE PERCENT (BEAKER) (test 6 % aflq=338) EOSINOPHILS RELATIVE PERCENT (BEAKER) (test 2 % mqxb=800) BASOPHILS RELATIVE PERCENT (BEAKER) (test 1 % pdgr=069) NEUTROPHILS ABSOLUTE COUNT (BEAKER) (test 6.58 K/ L 1.56-6.13 kfme=093) LYMPHOCYTES ABSOLUTE COUNT (BEAKER) (test 1.38 K/ L 1.18-3.74 gjft=960) MONOCYTES ABSOLUTE COUNT (BEAKER) (test 0.54 K/ L 0.24-0.36 vyrt=183) EOSINOPHILS ABSOLUTE COUNT (BEAKER) (test 0.18 K/ L 0.04-0.36 dsuz=873) BASOPHILS ABSOLUTE COUNT (BEAKER) (test 0.06 K/ L 0.01-0.08 asac=048) IMMATURE GRANULOCYTES-RELATIVE PERCENT (BEAKER) 0 % 0-1 (test hibm=9283) (MANUAL DIFFERENTIAL)2017-08-16 11:27:00 Test Item Value Reference Range Comments TOTAL COUNTED (BEAKER) (test xagx=7607) WBC MORPHOLOGY (BEAKER) (test egak=147) Normal PLT MORPHOLOGY (BEAKER) (test qbai=856) Normal RBC MORPHOLOGY (BEAKER) (test yrhd=335) Normal [id number] 07:47:00 Test Item Value Reference Range Comments PHOSPHORUS (BEAKER) (test lxfu=376) 3.1 mg/dL 2.3-4.7 [id number] 07:47:00 Test Item Value Reference Range Comments MAGNESIUM (BEAKER) (test arfm=172) 1.7 mg/dL 1.6-2.6 BASIC METABOLIC [id number] 07:47:00 Test Item Value Reference Range Comments SODIUM (BEAKER) (test 144 meq/L 136-145 cdun=098) POTASSIUM (BEAKER) (test 3.5 meq/L 3.5-5.1 yjeu=659) CHLORIDE (BEAKER) (test 111 meq/L 98-107 czaq=050) CO2 (BEAKER) (test 24 meq/L 22-29 dcze=393) BLOOD UREA NITROGEN 14 mg/dL 7-21 (BEAKER) (test khjf=113) CREATININE (BEAKER) (test 0.80 mg/dL 0.57-1.25 yxfa=896) GLUCOSE RANDOM (BEAKER) 79 mg/dL 70-105 (test watp=528) CALCIUM (BEAKER) (test 8.3 mg/dL 8.4-10.2 jqwp=964) EGFR (BEAKER) (test 73 mL/min/1.73 sq m ESTIMATED GFR IS NOT zseg=2535) ACCURATE CREATININE CLEARANCE IN PREDICTING GLOMERULAR FILTRATION RATE. ESTIMATED GFR IS NOT APPLICABLE FOR DIALYSIS PATIENTS. HEPATIC FUNCTION [id number] 07:47:00 Test Item Value Reference Range Comments TOTAL PROTEIN (BEAKER) (test slcd=608) 6.8 gm/dL 6.0-8.3 ALBUMIN (BEAKER) (test lpua=9886) 3.6 g/dL 3.5-5.0 BILIRUBIN TOTAL (BEAKER) (test lfal=304) 0.5 mg/dL 0.2-1.2 BILIRUBIN DIRECT (BEAKER) (test txjd=649) 0.2 mg/dL 0.1-0.5 ALKALINE PHOSPHATASE (BEAKER) (test hojo=629) 96 U/L 40-150 AST (SGOT) (BEAKER) (test arhw=070) 74 U/L 5-34 ALT (SGPT) (BEAKER) (test smmz=862) 38 U/L 6-55 FL, [id number] 16:10:00Reason for exam:->dilated ductsFINAL REPORT ERCP. CLINICAL [...] Juaneport Verified Date/Time: 08/15/2017 16:10:57 Reading Location: [address] Radiology Reading Room [id number] 13:55:00 Test Item Value Reference Range Comments POC-POTASSIUM (BEAKER) (test 3.9 meq/L 3.6-5.5 TESTED AT [facility] [address] [facility] nazd=0998) [facility] [address]
[2018-04-27] MEDS ORDERED: PROMETHAZINE 25 MG/ML VIAL ONE (22:40)
[2018-04-27] MEDS ORDERED: FENTANYL CITR 100 MCG/2 ML ONE (22:41)
--- NOTE | 2018-04-27 23:21 | ER ---
Nurse's Notes [facility] Name: Marita Hernandez Age: 62 yrs Sex: Female : 1955 Arrival Date: 04/27/2018 Time: 22:03 Bed 8 Private MD: Eliu Newton E Diagnosis: Fall due to bumping against object;Displaced fracture of fifth metatarsal bone, left foot;Colles' fracture of right radius Presentation: 04/27 22:17 Presenting complaint: Patient states: I tripped at home and landed on my right wrist tl2 and twisted my left foot. Denies hitting head. Swelling noted to right wrist. Transition of care: patient was not received from another setting of care. Onset of symptoms was April 27, 2018 at 21:30. Risk Assessment: Do you want to hurt yourself or someone else? Patient reports no desire to harm self or others. Initial Sepsis Screen: Does the patient meet any 2 criteria? No. Patient's initial sepsis screen is negative. Does the patient have a suspected source of infection? No. Patient's initial sepsis screen is negative. Care prior to arrival: None. 22:17 Method Of Arrival: Wheelchair tl2 22:17 Acuity: MEHRDAD 3 tl2 Triage Assessment: 22:19 General: Appears in no apparent distress. uncomfortable, Behavior is cooperative, tl2 appropriate for age, anxious, crying. Pain: Complains of pain in right wrist, left foot. Historical: - Allergies: 22:19 Aspirin; tl2 22:19 Demerol; tl2 22:19 Dilaudid; tl2 22:19 NSAIDS; tl2 22:19 tramadol; tl2 - Home Meds: 22:19 Lasix 40 mg Oral tab 1 tab once daily [Active]; Zyrtec 10 mg Oral tab 1 tab as needed tl2 [Active]; Singulair 10 mg Oral tab 1 tab once daily [Active]; potassium chloride 10 mEq Oral cpER 1 cap 2 times per day [Active]; Phenergan Oral 25 mg as needed [Active]; [place] 10-325 mg Oral tab as needed [Active]; Diovan 80 mg Oral tab 2 times per day [Active]; Creon 36,000-114,000- 180,000 unit Oral cpDR 1 cap four times a day [Active]; losartan oral oral [Active]; - PMHx: 22:19 acid reflux; Hypertension; Pancreatitis; tl2 - PSHx: 22:19 right wrist; tl2 - Immunization history:: Adult Immunizations up to date. - Social history:: Smoking status: Patient/guardian denies using tobacco. - Ebola Screening: : No symptoms or risks identified at this time. - Family history:: not pertinent. Screenin:20 Abuse screen: Denies threats or abuse. Nutritional screening: No deficits noted. tl2 Tuberculosis screening: No symptoms or risk factors identified. Fall Risk Fall in past 12 months (25 points). Assessment: 22:20 General: Appears in no apparent distress. uncomfortable, Behavior is cooperative, aa1 appropriate for age, crying. Pain: Complains of pain in left foot and right wrist. Neuro: Level of Consciousness is awake, alert, obeys commands, Oriented to person, place, time, situation, Moves all extremities. Respiratory: Airway is patent Respiratory effort is even, unlabored, Respiratory pattern is regular, symmetrical. GI: No signs and/or symptoms were reported involving the gastrointestinal system. : No signs and/or symptoms were reported regarding the genitourinary system. EENT: No signs and/or symptoms were reported regarding the EENT system. Derm: Skin is intact, is healthy with good turgor, Skin is pink, warm \T\ dry. Musculoskeletal: Circulation, motion, and sensation intact. Capillary refill < 3 seconds, Range of motion: limited in right wrist. 22:42 Reassessment: Patient appears in no apparent distress at this time. Patient and/or aa1 family updated on plan of care and expected duration. Pain level reassessed. Patient is alert, oriented x 3, equal unlabored respirations, skin warm/dry/pink. Awaiting xray results. 23:56 Reassessment: Patient appears in no apparent distress at this time. Patient is alert, aa1 oriented x 3, equal unlabored respirations, skin warm/dry/pink. Discussed d/c \T\ f/u instructions with pt; denies questions or concerns at this time. Vital Signs: 22:19 BP 137 / 92; Pulse 86; Resp 20; Temp 98.5(O); Pulse Ox 98% on R/A; Weight 64.86 kg; tl2 Height 5 ft. 3 in. (160.02 cm); Pain 10/10; 22:42 BP 147 / 96; Pulse 76; Resp 20; Pulse Ox 98% on R/A; Pain 10/10; aa1 23:33 BP 136 / 86; Pulse 68; Resp 18; Pulse Ox 97% on R/A; aa1 22:19 Body Mass Index 25.33 (64.86 kg, 160.02 cm) tl2 ED Course: 22:03 Patient arrived in ED. es 22:04 Eliu Newton MD is Private Physician. es 22:18 Triage completed. tl2 22:19 Arm band placed on right wrist. tl2 22:20 Patient has correct armband on for positive identification. Bed in low position. Call tl2 light in reach. Side rails up X2. 22:31 Yovani Fang MD is Attending Physician. joshua 22:33 Nel Rose RN is Primary Nurse. aa1 22:33 X-ray completed. Portable x-ray completed in exam room. sw 22:33 Wrist Right 3 View XRAY In Process Unspecified. EDMS 22:59 Foot Left 3 View XRAY In Process Unspecified. EDMS 23:19 Eliu Newton MD is Referral Physician. joshua 23:40 No provider procedures requiring assistance completed. Patient did not have IV access aa1 during this emergency room visit. Orthoglass splint: Sugar tong splint applied on right arm. Ortho shoe applied to left foot. Sling applied to right arm. Administered Medications: 22:41 Drug: fentaNYL (PF) 50 mcg Route: IM; Site: right deltoid; aa1 23:55 Follow up: Response: No adverse reaction; Pain is decreased aa1 22:41 Drug: Phenergan 25 mg Route: IM; Site: right deltoid; aa1 23:55 Follow up: Response: No adverse reaction aa1 Outcome: 23:20 Discharge ordered by . joshua 23:57 Discharged to home via wheelchair, with family. aa1 23:57 Condition: good 23:57 Discharge instructions given to patient, Instructed on discharge instructions, follow up and referral plans. medication usage, Demonstrated understanding of instructions, follow-up care, wound care, splint care, Prescriptions given X 1. 23:58 Patient left the ED. aa1 Signatures: Dispatcher [employer] EDMS Nel Rose RN RN aa1 Yovani Fang MD MD cha Salyer, Elise Diop, Ami, JUSTIN RN tl2
--- NOTE | 2018-04-27 23:21 | EDPHYS ---
Physician Documentation [facility] Name: Marita Hernandez Age: 62 yrs Sex: Female : 1955 Arrival Date: 04/27/2018 Time: 22:03 Bed 8 Private MD: Eliu Newton E ED Physician Yovani Fang HPI: 04/27 22:32 This 62 yrs old Female presents to ER via Wheelchair with complaints of Fall joshua Injury, Wrist Injury, Leg Injury. 22:32 Details of fall: The patient fell from an upright position, while walking. Onset: The joshua symptoms/episode began/occurred just prior to arrival. Associated injuries: The patient sustained lateral aspect of left wrist, medial aspect of left wrist and dorsal aspect of left wrist, decreased range of motion, deformity, obvious fracture, painful injury, swelling. Historical: - Allergies: 22:19 Aspirin; tl2 22:19 Demerol; tl2 22:19 Dilaudid; tl2 22:19 NSAIDS; tl2 22:19 tramadol; tl2 - Home Meds: 22:19 Lasix 40 mg Oral tab 1 tab once daily [Active]; Zyrtec 10 mg Oral tab 1 tab as needed tl2 [Active]; Singulair 10 mg Oral tab 1 tab once daily [Active]; potassium chloride 10 mEq Oral cpER 1 cap 2 times per day [Active]; Phenergan Oral 25 mg as needed [Active]; [place] 10-325 mg Oral tab as needed [Active]; Diovan 80 mg Oral tab 2 times per day [Active]; Creon 36,000-114,000- 180,000 unit Oral cpDR 1 cap four times a day [Active]; losartan oral oral [Active]; - PMHx: 22:19 acid reflux; Hypertension; Pancreatitis; tl2 - PSHx: 22:19 right wrist; tl2 - Immunization history:: Adult Immunizations up to date. - Social history:: Smoking status: Patient/guardian denies using tobacco. - Ebola Screening: : No symptoms or risks identified at this time. - Family history:: not pertinent. ROS: 22:32 Constitutional: Negative for fever, chills, and weight loss, Eyes: Negative for injury, joshua pain, redness, and discharge, ENT: Negative for injury, pain, and discharge, Neck: Negative for injury, pain, and swelling, Cardiovascular: Negative for chest pain, palpitations, and edema, Respiratory: Negative for shortness of breath, cough, wheezing, and pleuritic chest pain, Abdomen/GI: Negative for abdominal pain, nausea, vomiting, diarrhea, and constipation, Back: Negative for injury and pain, : Negative for injury, bleeding, discharge, and swelling, Skin: Negative for injury, rash, and discoloration, Neuro: Negative for headache, weakness, numbness, tingling, and seizure, Psych: Negative for depression, anxiety, suicide ideation, homicidal ideation, and hallucinations, Allergy/Immunology: Negative for hives, rash, and allergies, Endocrine: Negative for neck swelling, polydipsia, polyuria, polyphagia, and marked weight changes, Hematologic/Lymphatic: Negative for swollen nodes, abnormal bleeding, and unusual bruising. 22:32 MS/extremity: Positive for decreased range of motion, pain, of the lateral aspect of left wrist, medial aspect of left wrist, dorsal aspect of left wrist, palmar aspect of left wrist and left foot. Exam: 22:32 Constitutional: This is a well developed, well nourished patient who is awake, alert, joshua and in no acute distress. Head/Face: Normocephalic, atraumatic. Eyes: Pupils equal round and reactive to light, extra-ocular motions intact. Lids and lashes normal. Conjunctiva and sclera are non-icteric and not injected. Cornea within normal limits. Periorbital areas with no swelling, redness, or edema. ENT: Nares patent. No nasal discharge, no septal abnormalities noted. Tympanic membranes are normal and external auditory canals are clear. Oropharynx with no redness, swelling, or masses, exudates, or evidence of obstruction, uvula midline. Mucous membranes moist. Neck: Trachea midline, no thyromegaly or masses palpated, and no cervical lymphadenopathy. Supple, full range of motion without nuchal rigidity, or vertebral point tenderness. No Meningismus. Chest/axilla: Normal chest wall appearance and motion. Nontender with no deformity. No lesions are appreciated. Cardiovascular: Regular rate and rhythm with a normal S1 and S2. No gallops, murmurs, or rubs. Normal PMI, no JVD. No pulse deficits. Respiratory: Lungs have equal breath sounds bilaterally, clear to auscultation and percussion. No rales, rhonchi or wheezes noted. No increased work of breathing, no retractions or nasal flaring. Abdomen/GI: Soft, non-tender, with normal bowel sounds. No distension or tympany. No guarding or rebound. No evidence of tenderness throughout. Back: No spinal tenderness. No costovertebral tenderness. Full range of motion. Skin: Warm, dry with normal turgor. Normal color with no rashes, no lesions, and no evidence of cellulitis. Neuro: Awake and alert, GCS 15, oriented to person, place, time, and situation. Cranial nerves II-XII grossly intact. Motor strength 5/5 in all extremities. Sensory grossly intact. Cerebellar exam normal. Normal gait. Psych: Awake, alert, with orientation to person, place and time. Behavior, mood, and affect are within normal limits. 22:32 Musculoskeletal/extremity: Extremities: noted in the dorsum of left foot: decreased ROM, pain, tenderness, DVT Exam: No signs of deep vein thrombosis. no pain, no swelling, no tenderness, negative Homans' sign noted on exam, no appreciated bluish discoloration, no erythema, no increased warmth. Vital Signs: 22:19 BP 137 / 92; Pulse 86; Resp 20; Temp 98.5(O); Pulse Ox 98% on R/A; Weight 64.86 kg; tl2 Height 5 ft. 3 in. (160.02 cm); Pain 10/10; 22:42 BP 147 / 96; Pulse 76; Resp 20; Pulse Ox 98% on R/A; Pain 10/10; aa1 23:33 BP 136 / 86; Pulse 68; Resp 18; Pulse Ox 97% on R/A; aa1 22:19 Body Mass Index 25.33 (64.86 kg, 160.02 cm) tl2 MDM: 22:31 Patient medically screened. [facility] 22:48 Data reviewed: vital signs, nurses notes, radiologic studies, plain films. [facility] 04/27 22:20 Order name: Wrist Right 3 View XRAY [facility] 04/27 22:32 Order name: Foot Left 3 View XRAY [facility] 04/27 22:32 Order name: Ice pack; Complete Time: 22:41 [facility] 04/27 23:18 Order name: Walking boot; Complete Time: 23:55 [facility] 04/27 23:18 Order name: Sugar Tong Forearm Splint; Complete Time: 23:55 joshua 04/27 23:18 Order name: Sling; Complete Time: 23:55 joshua Administered Medications: 22:41 Drug: fentaNYL (PF) 50 mcg Route: IM; Site: right deltoid; aa1 23:55 Follow up: Response: No adverse reaction; Pain is decreased aa1 22:41 Drug: Phenergan 25 mg Route: IM; Site: right deltoid; aa1 23:55 Follow up: Response: No adverse reaction aa1 Disposition: 04/27/18 23:20 Discharged to Home. Impression: Fall due to bumping against object, Displaced fracture of fifth metatarsal bone, left foot, Colles' fracture of right radius. - Condition is Stable. - Discharge Instructions: Colles Fracture, Fall Prevention in the Home, Metatarsal Fracture, Fall Prevention in the Home, [id number]. - Prescriptions for Tylenol- Codeine #3 300-30 mg Oral Tablet - take 2 tablets by ORAL route every 6 hours As needed; 26 tablet. - Medication Reconciliation Form, Thank You Letter, Antibiotic Education, Prescription Opioid Use form. - Follow up: Eliu Newton MD; When: 2 - 3 days; Reason: Recheck today's complaints, Continuance of care, Re-evaluation by your physician. - Problem is new. - Symptoms have improved. Signatures: Dispatcher [employer] EDMS Nel Rose, RN RN aa1 Yovani Fang MD MD cha Knox, Taylor, RN RN tl2 Corrections: (The following items were deleted from the chart) 23:58 23:20 04/27/2018 23:20 Discharged to Home. Impression: Fall due to bumping against aa1 object; Displaced fracture of fifth metatarsal bone, left foot; Colles' fracture of right radius. Condition is Stable. Forms are Medication Reconciliation Form, Thank You Letter, Antibiotic Education, Prescription Opioid Use. Follow up: Eliu Newton; When: 2 - 3 days; Reason: Recheck today's complaints, Continuance of care, Re-evaluation by your physician. Problem is new. Symptoms have improved. joshua
[2018-04-28 00:14] VITALS: TEMP 98.5
[2018-04-28 00:17] VITALS: BP 136/86; O2SAT 97
--- NOTE | 2018-04-28 08:54 | RAD REPORT ---
EXAM DESCRIPTION: RAD - Wrist Right 3 View - 04/27/2018 10:37 pm CLINICAL HISTORY: Right wrist pain status post injury FINDINGS: An impaction intra-articular mildly displaced fracture involves the distal radius. No disl ocation is seen
--- NOTE | 2018-04-28 09:05 | RAD REPORT ---
EXAM DESCRIPTION: RAD - Foot Left 3 View - 04/27/2018 11:03 pm CLINICAL HISTORY: Left Foot pain status post fall FINDINGS: Mildly displaced oblique fracture involves the fifth metatarsal. No dislocation is seen
== END 2018-04-27 23:58 | disposition home or self-care (01) ==
LOC: ER 21:59
PROC: 2W3CX1Z Immobilization of Right Lower Arm using Splint (ICD-10-PCS; principal; 2018-04-27)
DX: S52.531A Colles' fracture of right radius, initial encounter for closed fracture (principal); S92.352A Displaced fracture of fifth metatarsal bone, left foot, initial encounter for closed fracture; W01.10XA Fall on same level from slipping, tripping and stumbling with subsequent striking against unspecified object, initial encounter; Y93.01 Activity, walking, marching and hiking; Y92.009 Unspecified place in unspecified non-institutional (private) residence as the place of occurrence of the external cause; Z88.6 Allergy status to analgesic agent; Z88.5 Allergy status to narcotic agent
CPT/HCPCS: 29125; 73110; 73630; 96372; 99284; J2550; J3010

== ENCOUNTER 2018-07-13 22:05 | Emergency (ER) | payer OTHER ==
--- OUTSIDE RECORDS SUMMARY | 2018-07-13 22:08 | XMS REPORT | Clinical Summary ---
:1955 Author Organization [facility] Address [address] [place] [address] Care Team Providers Name Role Phone Boo Primary Care Provider Allergies Active Allergy Reactions Severity Noted Date Comments Aspirin Other (See Comments) 06/06/2017 dizzy Tramadol Itching 06/06/2017 Medications Medication Sig Dispensed Refills Start Date End Date Status valsartan (DIOVAN) Take 160 mg 0 Active 160 MG tablet by mouth daily. amLODIPine (NORVASC) Take 5 mg by 0 Active 5 MG tablet mouth daily. furosemide (LASIX) 40 Take 40 mg 0 Active MG tablet by mouth as needed. HYDROCODONE-ACETAMINO Take by 0 Active PHEN ORAL mouth. promethazine Take 25 mg 0 Active (PHENERGAN) 25 MG by mouth tablet every 6 (six) hours as needed for Nausea. ranitidine (ZANTAC) Take 150 mg 0 Active 150 MG tablet by mouth 2 (two) times daily. dexlansoprazole 60 mg Take 60 mg 0 Active capsule by mouth daily. omeprazole (PRILOSEC) Take 40 mg 0 Active 40 MG capsule by mouth daily. MULTIVIT-MINERALS/FOL Take by 0 Active IC/GINKGO (WOMEN'S mouth. 50+ DAILY FORM, GKB, ORAL) potassium chloride Take 10 mEq 0 Active (KLOR-CON) 10 MEQ CR by mouth tablet daily. LIPASE/PROTEASE/AMYLA Take by 0 08/15/2017 Discontinued SE (CREON ORAL) mouth. cyclobenzaprine [...] Active Problems Problem Noted Date Chronic pancreatitis 08/15/2017 Abdominal pain 08/15/2017 Encounters Date Type Specialty Care Team Description 08/15/2017 Anesthesia Event Gastroenterology Ambrose Polanco MD 08/15/2017 Surgery Gastroenterology [place], ERCP Shaheen Randall MD 08/15/2017 Hospital [facility] Internal [facility], Epigastric pain (Primary Dx); - Encounter Medicine Shaheen Lam Other chronic pancreatitis (HCC); 08/19/2017 MD Tonia Essential hypertension; [place], Dislocation of temporomandibular joint, initial encounter Heaven Hua MD after 07/12/2017 Immunizations Name Dates Previously Given Next Due Influenza Three-TIV PF 5+ YR 08/16/2017 Social History Tobacco Use Types Packs/Day Years Used Date Never Smoker Smokeless Tobacco: Never Used Alcohol Use Drinks/Week oz/Week Comments No Sex Assigned at Date Recorded Not on file Job Start Date Occupation Industry Not on file Not on file Not on file Travel History Travel Start Travel End No recent travel history available. Last Filed Vital Signs Vital Sign Reading Time Taken Blood Pressure 108/70 08/19/2017 11:43 AM [employer] Pulse 81 08/19/2017 11:43 AM [employer] Temperature 36.7 C (98.1 F) 08/19/2017 11:43 AM [employer] Respiratory Rate 20 08/19/2017 11:43 AM [employer] Oxygen Saturation 97% 08/19/2017 11:43 AM [employer] Inhaled Oxygen Concentration - - Weight 64.3 kg (141 lb 12.8 oz) 08/15/2017 12:19 PM [employer] Height 160 cm (5' 3") 08/15/2017 12:19 PM [employer] Body Mass Index 25.12 08/15/2017 12:19 PM [employer] Plan of Treatment Not on file Procedures Procedure Name Priority Date/Time Associated Comments Diagnosis XR TEMPOROMANDIBULAR STAT 08/17/2017 4:56 Results for this JOINT BILATERAL PM [employer] procedure are in the results section. SEDIMENTATION RATE Routine 08/17/2017 5:25 Results for this AM [employer] procedure are in the results section. XR TEMPOROMANDIBULAR STAT 08/16/2017 5:18 Results for this JOINT BILATERAL PM [employer] procedure are in the results section. ANTI-NUCLEAR ANTIBODY Routine 08/16/2017 12:07 Results for this (TING) PM [employer] procedure are in the results section. HEPATIC FUNCTION PANEL Routine 08/16/2017 6:12 Results for this AM [employer] procedure are in the results section. MAGNESIUM Routine 08/16/2017 6:12 Results for this AM [employer] procedure are in the results section. PHOSPHORUS Routine 08/16/2017 6:12 Results for this AM [employer] procedure are in the results section. BASIC METABOLIC PANEL (7) Routine 08/16/2017 6:12 Results for this AM [employer] procedure are in the results section. (MANUAL DIFFERENTIAL) Routine 08/16/2017 5:59 Results for this AM [employer] procedure are in the results section. CBC W/PLT COUNT & AUTO Routine 08/16/2017 5:59 Results for this DIFFERENTIAL AM [employer] procedure are in the results section. CBC W/PLT COUNT & AUTO Routine 08/16/2017 5:59 Results for this DIFFERENTIAL AM [employer] procedure are in the results section. REPORT OF PROCEDURE - 08/15/2017 2:43 ENDOSCOPY URL PM [employer] [place] ERCP Routine 08/15/2017 2:16 Results for this PM [employer] procedure are in the results section. PROCEDURE W/ C-ARM 08/15/2017 1:00 Biliary pain PM [employer] Special Needs (C-ARM) ERCP 08/15/2017 1:00 PM [employer] Biliary pain Special Needs (C-ARM) after 07/12/2017 Results XR temporomandibular joint bilateral (08/17/2017 4:56 PM [employer])Only the most recent of2 resultswithin the time period is included. Narrative Performed At [facility] TECHNIQUE: Open and closed mouth views of both temporomandibular joints dated 08/17/2017. HISTORY: Status post reduction. COMPARISON: No mandibular radiographs dated 08/16/2017. IMPRESSION: There has been interval relocation of the right temporomandibular joint. Left temporal mandibular joint is unremarkable in appearance. No visualized fracture. Signed: Myriam Velez MD Report Verified Date/Time:08/17/2017 17:16:54 Reading Location: [facility] Radiology Reading Room Procedure Note Interface, External Ris In - 08/17/2017 5:19 PM [employer] FINAL REPORT TECHNIQUE: Open and closed mouth views of both temporomandibular joints dated 08/17/2017. HISTORY: Status post reduction. COMPARISON: No mandibular radiographs dated 08/16/2017. IMPRESSION: There has been interval relocation of the right temporomandibular joint. Left temporal mandibular joint is unremarkable in appearance. No visualized fracture. Signed: Myiram Velez MD Report Verified Date/Time: 08/17/2017 17:16:54 Reading Location: [facility] Radiology Reading Room Performing Organization Address [facility] Phone Number GE RIS Sedimentation rate (08/17/2017 5:25 AM [employer]) Sed Rate 51 (H) 0 - 30 mm/HR [facility] Specimen Blood Performing Organization Address [facility] Phone Number [address] [address] [phone] CENTER Anti-Nuclear Antibody (TING) (08/16/2017 12:07 PM [employer]) TING Negative Negative [facility] Specimen Blood Performing Organization Address [facility] Phone Number [address] [address] CENTER Phosphorus (08/16/2017 6:12 AM [employer]) Phosphorus 3.1 2.3 - 4.7 mg/dL [facility] Specimen Blood - Arm, Left Performing Organization Address [facility] Phone Number [address] [address] CENTER Magnesium (08/16/2017 6:12 AM [employer]) Magnesium 1.7 1.6 - 2.6 mg/dL [facility] Specimen Blood - Arm, Left Performing Organization Address [facility] Phone Number [facility] [address] [place] [address] [place] Hepatic function panel (08/16/2017 6:12 AM [employer]) Protein, Total 6.8 6.0 - 8.3 gm/dL [facility] Albumin 3.6 3.5 - 5.0 g/dL [facility] Total Bilirubin 0.5 0.2 - 1.2 mg/dL [facility] Bilirubin, Direct 0.2 0.1 - 0.5 mg/dL [facility] Alkaline Phosphatase 96 40 - 150 U/L [facility] AST 74 (H) 5 - 34 U/L [facility] ALT 38 6 - 55 U/L [facility] Specimen Blood - Arm, Left Performing Organization Address City/State/Zipcode Phone Number [facility] [address] [place] [address] [place] Basic metabolic panel (08/16/2017 6:12 AM [employer]) Sodium 144 136 - 145 meq/L [facility] Potassium 3.5 3.5 - 5.1 meq/L [facility] Chloride 111 (H) 98 - 107 meq/L [facility] CO2 24 22 - 29 meq/L [facility] BUN 14 7 - 21 mg/dL [facility] Creatinine 0.80 0.57 - 1.25 mg/dL [facility] Glucose 79 70 - 105 mg/dL [facility] Calcium 8.3 (L) 8.4 - 10.2 mg/dL [facility] EGFR 73Comment: ESTIMATED GFR IS mL/min/1.73 sq m [facility] NOT ACCURATE [facility] CLEARANCE IN PREDICTING GLOMERULAR FILTRATION RATE. ESTIMATED GFR IS NOT APPLICABLE FOR DIALYSIS PATIENTS. Specimen Blood - Arm, Left Performing Organization Address [facility]/Zipcode Phone Number [facility] [address] [place] [address] CENTER Manual Differential (08/16/2017 5:59 AM [employer]) Total Counted [facility] WBC Morphology Normal [facility] Platelet Morphology Normal [facility] RBC Morphology Normal [facility] Specimen Blood - Arm, Left Performing Organization Address City/[facility]/Zipcode Phone Number [facility] [address], [place] [phone] CENTER CBC with platelet count + automated diff (08/16/2017 5:59 AM [employer]) WBC 8.8 3.5 - 10.5 K/L [facility] RBC 3.72 (L) 3.93 - 5.22 M/L [facility] Hemoglobin 11.7 11.2 - 15.7 GM/DL [facility] Hematocrit 37.9 34.1 - 44.9 % [facility] MCV 101.9 (H) 79.4 - 94.8 fL [facility] MCH 31.5 25.6 - 32.2 pg [facility] MCHC 30.9 (L) 32.2 - 35.5 GM/DL [facility] RDW 12.9 11.7 - 14.4 % [facility] Platelets 181 150 - 450 K/CU MM [facility] MPV 11.1 9.4 - 12.3 fL [facility] nRBC 0 0 - 0 /100 WBC [facility] % Neutros 75 % [facility] % Lymphs 16 % [facility] % Monos 6 % [facility] % Eos 2 % [facility] % Baso 1 % [facility] # Neutros 6.58 (H) 1.56 - 6.13 K/L [facility] # Lymphs 1.38 1.18 - 3.74 K/L [facility] # Monos 0.54 (H) 0.24 - 0.36 K/L [facility] # Eos 0.18 0.04 - 0.36 K/L [facility] # Baso 0.06 0.01 - 0.08 K/L [facility] Immature 0 0 - 1 % [facility] Specimen Blood - Arm, Left Performing Organization Address City/State/Zipcode Phone Number [facility] [address] [place] [address] [phone] CENTER REPORT OF PROCEDURE - ENDOSCOPY URL (08/15/2017 2:43 PM [employer]) Narrative Performed At [place] Endoscopic Retrograde Cholangiopancreatography (08/15/2017 2:16 PM [employer]) Narrative Performed At [facility] ERCP. CLINICAL HISTORY: dilated ducts. COMPARISON STUDY: [...] MD Report Verified Date/Time:08/15/2017 16:10:57 Reading Location: [address] Radiology Reading Room Procedure Note Interface, External Ris In - 08/15/2017 4:13 PM [employer] FINAL REPORT ERCP. CLINICAL HISTORY: dilated ducts. [...] Report Verified Date/Time: 08/15/2017 16:10:57 Reading Location: [address] Radiology Reading Room Performing Organization Address City/State/Zipcode Phone Number GE RIS after 07/12/2017 Insurance Payer Benefit Plan / Group Subscriber ID Type Phone Address MEDICARE MEDICARE A B xxxxxxxxxx Medicare Advance Directives For more information, please contact:[address] [phone] Code Status Date Activated Date Inactivated Comments Full Code 08/15/2017 8:14 PM 08/19/2017 4:37 PM This code status was determined by: Patient
--- OUTSIDE RECORDS SUMMARY | 2018-07-13 22:08 | XMS REPORT | Clinical Summary ---
:1955 Author Organization [facility] Address [address] [place] [address] Care Team Providers Name Role Phone Kevin Robles MD Primary Care Provider Allergies Active Allergy Reactions Severity Noted Date Comments Aspirin GI Intolerance 09/14/2017 Pass out too Meperidine Itching 09/14/2017 Tramadol Itching High 05/17/2018 Current Medications Prescription Sig. Disp. Refills Start Date End Date Status dexlansoprazole Take 60 mg by Active (DEXILANT) 60 mg mouth daily. capsule HYDROcodone-acetamin TAKE ONE (1) 0 11/06/2017 Active ophen (NORCO) 10-325 TABLET(S) BY mg per tablet MOUTH FOUR TIMES A DAY. furosemide (LASIX) Take 40 mg by Active 40 mg tablet mouth 2 (two) times a day. ALPRAZolam (XANAX) TAKE ONE (1) 02/27/2018 Active 0.5 MG tablet TABLET(S) BY MOUTH THREE TIMES A DAY NEEDED FOR ANXIETY. allopurinol Take 1 tablet by 5 04/26/2018 Active (ZYLOPRIM) 100 MG mouth daily. tablet RESTASIS 0.05 % Administer 1 4 02/14/2018 Active ophthalmic emulsion drop to both eyes 2 (two) times a day. hydrOXYzine (ATARAX) Take 1 tablet by Active 25 MG tablet mouth as needed. lamoTRIgine Take 2 tablets Active (LaMICtal) 100 MG by mouth every tablet morning. losartan (COZAAR) Take 1 tablet by 5 04/23/2018 Active 100 MG tablet mouth every morning. montelukast Take 1 tablet by Active (SINGULAIR) 10 mg mouth as needed. tablet ranitidine (ZANTAC) Take 1 tablet by Active 150 MG tablet mouth daily. HYDROcodone-acetamin Take 1-2 tablets 60 tablet 0 05/17/2018 07/16/20 Active ophen (NORCO) 10-325 by mouth every 6 18 mg per (six) hours as tabletIndications: needed for Other closed severe pain for intra-articular up to 60 days. fracture of distal Must last 2 end of right radius, weeks Max Daily initial encounter Amount: 8 tablets HYDROcodone-acetamin hydrocodone 10 mg-acetaminophen 325 mg tablet Active ophen (NORCO) 10-325 Take 1 tablet 4 times a day by oral route for 30 days. mg per tablet valsartan (DIOVAN) Take 160 mg by 05/17/20 Discontinued 160 MG tablet mouth daily. 18 potassium chloride Take 10 mEq by 05/17/20 Discontinued (K-DUR,KLOR-CON) 10 mouth 2 (two) 18 MEQ CR tablet times a day. amLODIPine (NORVASC) Take 5 mg by 05/17/20 Discontinued 5 mg tablet mouth daily. 18 cephalexin (KEFLEX) Take 1 capsule 8 capsule 0 09/25/2017 09/27/19 500 MG capsule (500 mg total) 18 by mouth every 6 (six) hours for 2 days. To begin after surgery promethazine Take 1 tablet 20 tablet 0 09/25/2017 10/25/19 (PHENERGAN) 25 MG (25 mg total) by 18 tablet mouth every 6 (six) hours as needed for nausea or vomiting for up to 30 days. To begin after surgery allopurinol Take 1 tablet 30 tablet 0 12/19/2017 01/19/20 (ZYLOPRIM) 100 MG (100 mg total) 18 tabletIndications: by mouth daily Wrist arthritis for 30 days. Take 1 tab PO daily HYDROcodone-acetamin Take 1-2 tablets 40 tablet 0 12/28/2017 02/28/20 ophen (NORCO) 5-325 by mouth every 6 18 mg per tablet (six) hours as needed (pain) for up to 40 doses Earliest Fill Date: 12/28/17. Max Daily Amount: 8 tablets HYDROcodone-acetamin as needed for 01/30/2018 05/17/20 Discontinued ophen (NORCO) 10-325 Pain. 18 mg per tablet Active Problems Problem Noted Date Closed -punch intra-articular fracture of distal end of right radius 2017 Overview: Added automatically from request for surgery [id number] Resolved Problems Problem Noted Date Resolved Date DRUJ (distal radioulnar joint) arthrosis, primary, left 12/19/2017 03/20/2018 Overview: Added automatically from request for surgery [id number] Encounters Date Type Specialty Care Team Description 06/11/2018 Procedure visit Neurology Jax Rico MD Lumbar radiculopathy ( Primary Dx); Numbness in both legs 06/05/2018 Office Visit Orthopedic Surgery Bar Bazzi Other closed intra-articular fracture of distal end of right radius, initial encounter ( Primary Dx); Cal MARINELLI MD Post-operative state 06/01/2018 Office Visit Orthopedic Surgery Taye Hunt Closed displaced MD RACHEL fracture of fifth metatarsal bone of left foot with routine healing, subsequent encounter (Primary Dx) 05/17/2018 [facility] General Surgery Bar Bazzi Encounter Cal MARINELLI MD 05/17/2018 Procedure Pass General Surgery 05/17/2018 Surgery General Surgery Bar Bazzi RIGHT ORIF R (OPEN Cal MARINELLI MD REDUCTION INTERNAL FIXATION RIGHT) DISTAL RADIUS FX (FRACTURE) (INTRA-ARTICULAR) 05/16/2018 Anesthesia Event General Surgery Anjelica Pérez FNP 05/15/2018 [facility] Radiology Bar Bazzi III, MD 05/15/2018 [facility] Radiology Bar Bazzi III, MD 05/15/2018 Office Visit Orthopedic Surgery Bar Bazzi closed intra-articular fracture of distal end of right radius, initial encounter ( Primary Dx); Cal MARINELLI MD Closed displaced fracture of fifth metatarsal bone of left foot, initial encounter; Injury of right wrist, initial encounter 05/15/2018 Transcribe Orders Orthopedic Surgery Bar Bazzi Closed intra -articular Cal MARINELLI MD -punch fracture of right radius, initial encounter (Primary Dx) 05/15/2018 Ancillary Orders Radiology Bar Bazzi III, MD 05/15/2018 Ancillary Orders Radiology Bar Bazzi III, MD 05/04/2018 [facility] Radiology Taye Hunt II, MD 05/04/2018 [facility] Radiology Taye Hunt Encounter II, 05/04/2018 Office Visit Orthopedic Surgery Taye Hunt Displaced fracture of MD RACHEL fifth metatarsal bone, left foot, initial encounter for closed fracture (Primary Dx) 05/04/2018 Ancillary Orders Radiology Taye Hunt II, MD 04/16/2018 Office Visit Orthopedic Surgery Taye Nava Complete tear of left WMD Corrina rotator cuff (Primary Dx) 03/20/2018 Office Visit Orthopedic Surgery Bar Bazzi Left wrist pain ( Primary Dx); MD JANE Mccall III (distal radioulnar joint) arthrosis, primary, left 02/13/2018 Office Visit Orthopedic Surgery Bar Bazzi DRUSatya (distal radioulnar Cal MARINELLI MD joint) arthrosis, primary, left (Primary Dx) 02/13/2018 Office Visit Orthopedic Surgery Taye Nava Complete tear of left W.MD rotator cuff (Primary Dx) 01/31/2018 Orders Only Orthopedic Surgery Aron, Tear of right rotator cuff , unspecified tear extent (Primary Dx); EASTON Kaye Complete rotator cuff tear of left shoulder 01/30/2018 Telephone Orthopedic Surgery Bar Bazzi III, MD 01/16/2018 Office Visit Orthopedic Surgery Taye Nava Complete tear of left W.MD rotator cuff (Primary Dx) 01/16/2018 Office Visit Orthopedic Surgery Bar Bazzi Arthritis of left wrist (Primary Dx); Cal MARINELLI MD Post-operative state 01/08/2018 Refill Orthopedic Surgery Bar Bazzi Wrist arthritis Cal MARINELLI MD 01/08/2018 Orders Only Orthopedic Surgery Bar Bazzi III, MD 12/28/2017 Hospital General Surgery Bar Bazzi Encounter Cal MARINELLI MD 12/28/2017 Procedure Pass General Surgery 12/28/2017 Surgery General Surgery Bar Bazzi LEFT DARRACH PROCEDURE Cal MARINELLI MD 12/27/2017 Anesthesia Event General Surgery Anjelica Pérez FNP 12/25/2017 Pre-Admit Testing Pre-Admission Bar Bazzi Preop [...] left WMD Corrina rotator cuff (Primary Dx) 2017 Hospital Radiology Taye Nava MD 2017 Procedure Pass Radiology 2017 Ancillary Orders Radiology Taye Nava MD 10/05/2017 Office Visit Orthopedic Surgery Keri Complete tear of left rotator cuff (Primary Dx); Janes Daly, Other secondary osteoarthritis of left wrist PA Taye Nava MD 09/28/2017 Telephone Anesthesiology Shannan Dacosta RN 09/27/2017 [facility] General Surgery Taye Nava MD 09/27/2017 Procedure Pass General Surgery 09/27/2017 Surgery General Surgery Taye Nava LEFT ARTHROSCOPY OF THE MD Daquan SHOULDER WITH DECOMPRESSION, ACROMIOCLAVICULAR RESECTION, AND ROTATOR CUFF REPAIR 09/25/2017 Hospital Radiology Jeremias Mueller Bilateral Encounter Addy, DDS temporomandibular joint pain 09/25/2017 Orders Only Orthopedic Surgery Janes Saavedra PA 09/22/2017 Pre-Admit Testing Pre-Admission Taye Nava Preop testing ( Primary Appointment Testing MD Daquan Dx) 09/21/2017 Anesthesia Event General Surgery Anjelica Pérez FNP 09/14/2017 Office Visit Orthopedic Surgery Taye Nava Complete tear of left W., MD rotator cuff (Primary Dx) 09/14/2017 Procedure Pass Radiology 09/14/2017 Transcribe Orders Access Jeremias Mueller DDS temporomandibular joint pain (Primary Dx) after 07/12/2017 Family History Medical History Relation Name Comments [...] Vital Sign Reading Time Taken Blood Pressure 97/56 05/17/2018 1:25 PM CDT Pulse 56 05/17/2018 1:25 PM CDT Temperature 36.7 C (98.1 F) 05/17/2018 1:25 PM CDT Respiratory Rate 18 05/17/2018 1:25 PM CDT Oxygen Saturation 95% 05/17/2018 1:25 PM CDT Inhaled Oxygen Concentration - - Weight 65.3 kg (144 lb) 06/05/2018 3:27 PM CDT Height 157.5 cm (5' 2") 06/05/2018 3:27 PM CDT Body Mass Index 26.34 06/05/2018 3:27 PM CDT Plan of Treatment Date Type Specialty Care Team Description 07/20/2018 Office Visit [place] [address] [place] [address] Health Maintenance Due Date Last Done Comments CERVICAL CANCER SCREENING 1977 BREAST CANCER SCREENING 2006 COLON CANCER SCREENING 2006 SHINGRIX VACCINE (#1) 2006 ZOSTER VACCINE 2016 INFLUENZA VACCINE 04/04/2018 Implants Implanted Type Area Shotblast Equipment Operator Device Expiration Model / Identifier Date Serial / Lot Screw, Polyaxial Non Locking, 3.5mm X 11mm, Ti, Virgen - [id number] IMPLANT Right: SKELETAL PANL [id number] TS / Implanted: Qty: 1 on 05/17/2018 by Bar Bazzi III, MD DEVICES Wrist DYNAMICS / VENDOR LOT NA K-Wire, Standard Tip, 1.5mm X 127mm - [id number] [id number] IMPLANT Right: SKELETAL KWIR STD [id number] / Implanted: Qty: 3 on 05/17/2018 by Bar Bazzi III, MD DEVICES Wrist DYNAMICS / VENDOR LOT NA Narrow Heads, 3 Hole Shaft, Right, Virgen Fossa Plate - [id number] [id number] IMPLANT Right: SKELETAL GMN RTN 3HL / Implanted: Qty: 1 on 05/17/2018 by Bar Bazzi III, MD DEVICES Wrist DYNAMICS / VENDOR LOT NA Threaded Peg, Locking, 2.3x17mm - [id number] [id number] IMPLANT Right: SKELETAL TPLS [id number] TS / Implanted: Qty: 1 on 05/17/2018 by Bar Bazzi III, MD DEVICES Wrist DYNAMICS / VENDOR LOT NA Fully Threaded Peg, Locking, 2.3mm X 19mm, Ti - [id number] IMPLANT Right : SKELETAL TPLS [id number] TS / Implanted: Qty: 3 on 05/17/2018 by Bar Bazzi III, MD DEVICES Wrist DYNAMICS / VENDOR LOT NA Fully Threaded Peg, Locking, 2.3mm X 20mm, Ti - [id number] [id number] IMPLANT Right : SKELETAL TPLS [id number] TS / Implanted: Qty: 1 on 05/17/2018 by Bar Bazzi III, MD DEVICES Wrist DYNAMICS / VENDOR LOT NA Screw, Cortical Locking, 3.5mm X 11mm, Ti - [id number] [id number] IMPLANT Right: SKELETAL COLS [id number] TS / Implanted: Qty: 1 on 05/17/2018 by aBr Bazzi III, MD DEVICES Wrist DYNAMICS / VENDOR LOT NA Screw, Polyaxial Non Locking, 3.5mm X 10mm, Ti, Virgen - [id number] [id number] IMPLANT Right: SKELETAL PANL [id number] TS / Implanted: Qty: 1 on 05/17/2018 by Bar Bazzi III, MD DEVICES Wrist DYNAMICS / VENDOR LOT NA [place] Sut Pushlock Kntls Peek 4.5x24mm - [id number] Orthopedic Left: [employer] 03/03/2022 AR 1922PS / Implanted: 09/27/2017 (Quantity not on file) Trauma Shoulder / Implants [id number] [place] Sut Pushlock Kntls Peek 4.5x24mm - [id number] Orthopedic Left: [employer] 03/03/2022 AR 1922PS / Implanted: 09/27/2017 (Quantity not on file) Trauma Shoulder / Implants [id number] [place] Sut Healix Knotless Br Biocmpst W/ Orthocord 5.5mm - [id number] Orthopedic Left: [employer]Y [employer]K 05/04/2020 [id number] / Implanted: 09/27/2017 (Quantity not on file) Trauma Shoulder / Implants [id number] Procedures Procedure Name Priority Date/Time Associated Comments Diagnosis EMG Routine 06/11/2018 12:00 AM CDT XR WRIST 3+ VW RIGHT Routine 06/05/2018 3:45 Other closed Results for this PM CDT intra-articular procedure are in fracture of distal the results end of right section. radius, initial encounter XR FOOT 3+ VW LEFT Routine 06/01/2018 10:50 Closed displaced Results for this AM CDT fracture of fifth procedure are in metatarsal bone of the results left foot with section. routine healing, subsequent encounter [place] < 1 HOUR Routine 05/17/2018 11:18 Results for this AM CDT procedure are in the results section. WY AN ELECTIVE Routine 05/17/2018 10:12 SUPRAGLOTTIC AIRWAY AM CDT Procedure Note - Chaparro Meyer CRNA - 05/17/2018 10:12 AM CDT Airway Date/Time: 05/17/2018 10:03 AM Performed by: CHAPARRO MEYER Authorized by: SIMON SANTAMARIA Location: OR Urgency: Elective Anesthesiologist: SIMON SANTAMARIA Resident/PSYCHIATRIC RN/AA: CHAPARRO MEYER Performed by: resident/PSYCHIATRIC RN/AA Preoxygenated with 100% O2: Yes C-spine Precautions Maintained Throughout: Yes Mask Ventilation: Not attempted Final Airway Type: Supraglottic airway Final LMA: Unique LMA Size: 4 Number of Attempts at Approach: 1 Atraumatic LMA insertion; lips/teeth/gums unchanged. WY AN PERIPHERAL BLOCK POST-OP PAIN Routine 05/17/2018 9:39 AM CDT Procedure Note - Simon Santamaria MD - 05/17/2018 9:39 AM CDT Peripheral Block Performed by: SIMON SANTAMARIA Authorized by: SIMON SANTAMARIA Patient Location: Pre-op Start Time: 05/17/2018 9:24 AM End Time: 05/17/2018 9:34 AM Reason for Block: at surgeon's request, post-op pain management Staff: Anesthesiologist: SIMON SANTAMARIA Performed by: Anesthesiologist Preprocedure: patient identified, IV checked, site and side verified, risks and benefits discussed, procedure verified, surgical consent complete, patient position confirmed, monitors and equipment checked, pre-op evaluation complete and site marked Peripheral Nerve Block: Patient Position: Supine Prep: ChloraPrep Monitoring: Blood pressure monitoring, continuous pulse oximetry, CO2 and heart rate Block Type: Supraclavicular Laterality: Right Injection Technique: Catheter insertion Procedures: ultrasound guided Ultrasound documentation: Printed/placed in chart Local Infiltration (See MAR for details): Ropivacaine Needle: Needle Type: Pajunk Needle Gauge: 19 G Needle Length: 10 cm Catheter size: 20g. Catheter at Skin Depth: 4 cm Assessment: Injection Assessment: Visualized needle/local anesthetic surrounding nerve , visualized pertinent vascular structures and nerves, needle tip visualized at all times during injection of medication, intermittent aspiration during local anesthetic administration and no symptoms of intraneural/intravenous injection Paresthesia Pain: None Heart Rate Change: No Block outcome: No apparent complications and patient tolerated procedure well Notes: Timeout performed immediately prior to procedure. ESTIMATED GFR Routine 05/17/2018 8:51 AM Results for this CDT procedure are in the results section. BASIC METABOLIC PANEL Routine 05/17/2018 8:51 AM Results for this CDT procedure are in the results section. HC COMPLETE BLD COUNT Routine 05/17/2018 8:51 AM Results for this W/AUTO DIFF CDT procedure are in the results section. POC GLUCOSE Routine 05/17/2018 8:50 AM Results for this CDT procedure are in the results section. XR WRIST 3+ VW RIGHT Routine 05/15/2018 2:58 PM Injury of right Results for this CDT wrist, initial procedure are in encounter the results section. XR LOWER EXTREMITY Routine 04/27/2018 4:02 PM Results for this EXTERNAL STUDY CDT procedure are in the results section. XR UPPER EXTREMITY Routine 04/27/2018 4:02 PM Results for this EXTERNAL STUDY CDT procedure are in the results section. XR UPPER EXTREMITY Routine 04/27/2018 12:38 PM Results for this EXTERNAL STUDY CDT procedure are in the results section. XR LOWER EXTREMITY Routine 04/27/2018 12:38 PM Results for this EXTERNAL STUDY CDT procedure are in the results section. XR WRIST 3+ VW LEFT Routine 03/20/2018 10:27 AM Left wrist pain Results for this CDT procedure are in the results section. XR WRIST 3+ VW LEFT Routine 01/16/2018 8:51 AM Arthritis of left Results for this CDT wrist procedure are in the results section. OR FL > 1 HOUR Routine 12/28/2017 10:30 AM Results for this CDT procedure are in the results section. WY AN ELECTIVE Routine 12/28/2017 9:53 AM SUPRAGLOTTIC AIRWAY CDT Procedure Note - Anatoly Grider CRNA - 12/28/2017 9:53 AM CDT Airway Date/Time: 12/28/2017 9:36 AM Performed by: ANATOLY GRIDER Authorized by: SUMEET SORIA Location: OR Urgency: Elective Difficult Airway: No Anesthesiologist: SUMEET SORIA Resident/PSYCHIATRIC RN/AA: ANATOLY GRIDER Performed by: anesthesiologist and resident/PSYCHIATRIC RN/AA Preoxygenated with 100% O2: Yes C-spine Precautions Maintained Throughout: Yes Mask Ventilation: Not attempted Final Airway Type: Supraglottic airway Final LMA: Classic LMA Size: 3 Number of Attempts at Approach: 1 POC GLUCOSE Routine 12/28/2017 8:06 AM Results for this CDT procedure are in the results section. ZZESTIMATED GFR Routine 12/25/2017 11:50 AM Results for [...] CDT procedure are in the results section. WY ARTHROCENTESIS Routine 11/24/2017 10:30 AM Arthritis of left Results for this ASPIR&/INJ INTERM CDT wrist procedure are in JT/BURS W/O US the results section. XR WRIST 3+ VW LEFT Routine 11/24/2017 10:13 AM Left wrist pain Results for this CDT procedure are in the results section. WY AN PERIPHERAL BLOCK Routine 09/27/2017 7:55 AM POST-OP PAIN BMX RIDER Procedure Note - Karlos Khoury MD - 09/27/2017 7:54 AM BMX RIDER Peripheral Block Performed by: KARLOS KHOURY Authorized [...] GLUCOSE Routine 09/27/2017 7:40 Results for AM BMX RIDER this procedure are in the results section. MRI TEMPOROMANDIBULAR Routine 09/25/2017 11:05 Bilateral Results for JOINTS AM BMX RIDER temporomandibular joint this procedure pain are in the results section. ZZESTIMATED GFR Routine 09/22/2017 11:03 Results for AM BMX RIDER this procedure are in the results section. HC COMPLETE BLD COUNT Routine 09/22/2017 11:03 Preop testing Results for W/AUTO DIFF AM BMX RIDER this procedure are in the results section. BASIC METABOLIC PANEL Routine 09/22/2017 11:03 Preop testing Results for AM BMX RIDER this procedure are in the results section. after 07/12/2017 Results EMG General Request (06/11/2018) Narrative Performed At XR Wrist 3+ Vw Right (06/05/2018 3:45 PM)Only the most recent of2 resultswithin the time period is included. Narrative Performed At PA, lateral, and oblique views of the right wrist demonstrate good [facility] maintenance of distal radius fracture alignment. Hardware in place without evidence of loosening or failure. Performing Organization Address [facility] [place] Phone Number [facility] [address] [place] [address] XR Foot 3+ Vw Left (06/01/2018 10:50 AM) Narrative Performed At Three-view images of the left foot reveals evidence of a healing [facility] shortened, angulated, and displaced middle third long oblique fifth metatarsal fracture. Bones are otherwise well mineralized. Performing Organization Address [facility]/Zipcode Phone Number [facility] [address] [place] [address] OR FL < 1 Hour (05/17/2018 11:18 AM) Narrative Performed At EXAMINATION:OR FL 1 HOUR HM [facility] CLINICAL HISTORY: None provided. IMPRESSION: 1. Fluoroscopy was provided in the operating. I was not present during the procedure. 2. Please refer to the operative report for findings. 3. Total Dose:3 fluoroscopic images. 16 seconds of fluoroscopy time. Procedure Note Interface, Radiology Results Incoming - 05/17/2018 11:26 AM CDT EXAMINATION: OR FL 1 HOUR CLINICAL HISTORY: None provided. IMPRESSION: 1. Fluoroscopy was provided in the operating. I was not present during the procedure. 2. Please refer to the operative report for findings. 3. Total Dose: 3 fluoroscopic images. 16 seconds of fluoroscopy time. Performing Organization Address City/State/Zipcode Phone Number [facility] [address] [place] [address] Estimated GFR (05/17/2018 8:51 AM) Estimated GFR 66 mL/min/1.73 m2 [facility] DEPARTMENT OF Comment: PATHOLOGY AND GENOMIC CatergoryUnitsInterpretation MEDICINE G1 >=90 Normal or high G2 60-89Mildly decreased [id number] to moderately decreased J0c24-50Lllspjbfrs to severely decreased G4 15-29Severely decreased G5 <15Kidney failure The eGFR was calculated using the Chronic Kidney Disease Epidemiology Collaboration (CKD-EPI) equation. Interpretation is based on recommendations of the National Kidney Foundation-Kidney Disease Outcomes Quality Initiative (NKF-KDOQI) published in 2014. Specimen Plasma specimen Performing Organization Address City/[facility]/Zipcode Phone Number [facility] DEPARTMENT OF PATHOLOGY [address] [place] [address] AND GENOMIC MEDICINE CBC with platelet and differential (05/17/2018 8:51 AM)Only the most recent of4 resultswithin the time period is included. WBC 6.0 4.5 - 11.0 k/uL [facility] DEPARTMENT OF PATHOLOGY AND GENOMIC MEDICINE RBC 3.81 (L) 4.20 - 5.50 m/uL [facility] DEPARTMENT OF PATHOLOGY AND GENOMIC MEDICINE HGB 11.8 (L) 12.0 - 16.0 g/dL [facility] DEPARTMENT OF PATHOLOGY AND GENOMIC MEDICINE HCT 36.3 (L) 37.0 - 47.0 % [facility] DEPARTMENT OF PATHOLOGY AND GENOMIC MEDICINE MCV 95.3 82.0 - 100.0 fL [facility] DEPARTMENT OF PATHOLOGY AND GENOMIC MEDICINE MCH 31.0 27.0 - 34.0 pg [facility] DEPARTMENT OF PATHOLOGY AND GENOMIC MEDICINE MCHC 32.5 31.0 - 37.0 g/dL [facility] DEPARTMENT OF PATHOLOGY AND GENOMIC MEDICINE RDW - SD 42.5 37.0 - 55.0 fL [facility] DEPARTMENT OF PATHOLOGY AND GENOMIC MEDICINE MPV 10.6 6.9 - 11.0 fL [facility] DEPARTMENT OF PATHOLOGY AND GENOMIC MEDICINE Platelet count 307 150 - 400 K/uL [facility] DEPARTMENT OF PATHOLOGY AND GENOMIC MEDICINE Nucleated RBC 0.00 /100 WBC [facility] DEPARTMENT OF PATHOLOGY AND GENOMIC MEDICINE Neutrophils 63.1 39.0 - 69.0 % [facility] DEPARTMENT OF PATHOLOGY AND GENOMIC MEDICINE Lymphocytes 23.8 (L) 25.0 - 45.0 % [facility] DEPARTMENT OF PATHOLOGY AND GENOMIC MEDICINE Monocytes 7.8 0.0 - 10.0 % [facility] DEPARTMENT OF PATHOLOGY AND GENOMIC MEDICINE Eosinophils 3.8 0.0 - 5.0 % [facility] DEPARTMENT OF PATHOLOGY AND GENOMIC MEDICINE Basophils 1.3 (H) 0.0 - 1.0 % [facility] DEPARTMENT OF PATHOLOGY AND GENOMIC MEDICINE Immature granulocytes 0.2 0.0 - 1.0 % [facility] DEPARTMENT OF PATHOLOGY AND GENOMIC MEDICINE Specimen Blood Performing Organization Address City/[facility] [place] [address] AND [employer] [facility] Basic metabolic panel (05/17/2018 8:51 AM)Only the most recent of3 resultswithin the time period is included. Sodium 143 135 - 148 mEq/L [facility] DEPARTMENT OF PATHOLOGY AND GENOMIC MEDICINE Potassium 4.1 3.5 - 5.0 mEq/L [facility] DEPARTMENT OF PATHOLOGY AND GENOMIC MEDICINE Chloride 107 98 - 112 mEq/L [facility] DEPARTMENT OF PATHOLOGY AND GENOMIC MEDICINE CO2 24 24 - 31 mEq/L [facility] DEPARTMENT OF PATHOLOGY AND GENOMIC MEDICINE Anion gap 12@ANIO 7 - 15 mEq/L [facility] DEPARTMENT OF PATHOLOGY AND GENOMIC MEDICINE BUN 17 8 - 23 mg/dL [facility] DEPARTMENT OF PATHOLOGY AND GENOMIC MEDICINE Creatinine 0.93 (H) 0.50 - 0.90 mg/dL [facility] DEPARTMENT OF PATHOLOGY AND GENOMIC MEDICINE Glucose 91 65 - 99 mg/dL [facility] DEPARTMENT OF PATHOLOGY AND GENOMIC MEDICINE Calcium 9.3 8.8 - 10.2 mg/dL [facility] DEPARTMENT OF PATHOLOGY AND GENOMIC MEDICINE Specimen Plasma specimen Performing Organization Address City/[facility] [place] [address] AND [employer] [facility] POC glucose (05/17/2018 8:50 AM)Only the most recent of3 resultswithin the time period is included. POC glucose 99 65 - 99 mg/dL [facility] DEPARTMENT OF PATHOLOGY AND Comment: GENOMIC MEDICINE Meter ID: [id number] Timber Killer: Riley Ugalde Performing Organization Address City/State/Zipcode Phone Number [facility] DEPARTMENT OF PATHOLOGY [address] [facility] [place] [address] AND GENOMIC MEDICINE XR Lower Extremity External Study (04/27/2018 4:02 PM)Only the most recent of2 resultswithin the time period is included. Narrative Performed At This exam was not acquired at a [facility] facility and has not been HM [facility] interpreted by a [facility] Provider.The exam was imported into our imaging system for comparisons purposes. Performing Organization Address [facility]/Zipcode Phone Number [facility] [address] [place] [address] XR Upper Extremity External Study (04/27/2018 4:02 PM)Only the most recent of2 resultswithin the time period is included. Narrative Performed At This exam was not acquired at a [facility] facility and has not been [facility] interpreted by a [facility] Provider.The exam was imported into our imaging system for comparisons purposes. Performing Organization Address [facility]/Zipcode Phone Number RADIANT [address] [place] [address] XR Wrist 3+ Vw Left (03/20/2018 10:27 AM)Only the most recent of3 resultswithin the time period is included. Narrative Performed At PA, lateral, and oblique views of the left wrist demonstrate expected [facility] appearance after distal ulnar resection. No visible fractures. No evidence of distal ulnar instability. Performing Organization Address [facility]/Zipcode Phone Number RAD[facility] [address] [place] [address] OR [place] > I Hour (12/28/2017 10:30 AM) Narrative Performed At EXAMINATION:OR [place] 1 HOUR [facility] CLINICAL HISTORY:intraoperative IMPRESSION: Fluoroscopy was provided. No radiologist present.Please see procedure report for discussion of procedure, findings. [facility]-[id number] Procedure Note Hm Interface, Radiology Results Incoming - 12/28/2017 10:40 AM CDT EXAMINATION: OR [place] 1 HOUR CLINICAL HISTORY: intraoperative IMPRESSION: Fluoroscopy was provided. No radiologist present. Please see procedure report for discussion of procedure, findings. [facility]-[id number] Performing Organization Address City/[facility]/Zipcode Phone Number [facility] [address] [place] [address] Estimated GFR (12/25/2017 11:50 AM)Only the most recent of2 resultswithin the time period is included. GFR Non Af Amer 56 (A) mL/min/1.73 m2 [facility] DEPARTMENT OF PATHOLOGY AND GENOMIC MEDICINE GFR Af Amer 68 mL/min/1.73 m2 [facility] DEPARTMENT OF Comment: PATHOLOGY AND GENOMIC Chronic [...] Americans. Specimen Plasma specimen Performing Organization Address [facility] Phone Number [facility] DEPARTMENT OF PATHOLOGY [address] [place] [address] AND [employer] ECG 12 lead (12/25/2017 10:42 AM) Ventricular rate 69 [facility] Atrial rate 69 [facility] M[facility] W[place] interval 180 [facility] QRSD interval 76 [facility] M[facility] QT interval 388 [facility] M[facility] QTC interval 415 [facility] M[facility] P axis 1 33 [facility] M[facility] QRS axis 1 -7 [facility] M[facility] T wave axis 66 [facility] MUSE EKG impression Normal sinus rhythm-Normal ECG-In automated [facility] MUSE comparison with ECG of -APR-2016 10:48,-No significant change was found- Performing Organization Address [facility] Phone Number [facility] MUSE [address] [place] [address] TING SCREEN W IFA W REFLEX TO TITER (11/27/2017 11:22 AM) TING screen NEGATIVE NEGATIVE [facility] Comment: TING IFA is a first line screen for detecting the presence of up to approximately 150 autoantibodies in various autoimmune diseases. A negative TING IFA result suggests TING-associated autoimmune diseases are not present at this time. Visit Physician FAQs for interpretation of all antibodies in the [place], prevalence, and association with diseases at [email or web address] Narrative Performed At FASTING: UNKNOWN [facility] Other Results Text Performing Organization Information: Site ID: IG Name: [facility] Lab Address: [address] [place] [phone] Director: Dr. Jos Santana Performing Organization Address City/[facility] Phone Number [facility] [employer] [address] SSA/SSB antibody (11/27/2017 11:22 AM) Sjogren's SS-A antibody <1.0 NEG <1.0 NEG AI [facility] II Sjogren's SS-B antibody <1.0 NEG <1.0 NEG AI [facility] II Narrative Performed At FASTING: UNKNOWN [facility] Other Results Text Performing Organization Information: Site ID: IG Name: [facility] Address: [address] [place] [phone] Director: Dr. Jos Santana Performing Organization Address [facility] Phone Number [employer] [address] DNA Ab screen (11/27/2017 11:22 AM) DNA ds antibody 1 IU/mL [facility] II Comment: IU/mL Interpretation < or=4Negative 5-9 Indeterminate > or=10 Positive Narrative Performed At FASTING: UNKNOWN [facility] Other Results Text Performing Organization Information: Site ID: IG Name: [facility] Address: [address] [place] [phone] Director: Dr. Jos Santana Performing Organization Address [facility] [place] Phone Number [employer] [address] Cyclic citrullinated peptide antibody, IgG (11/27/2017 11:22 AM) Cyclic citrullin peptide <16 UNITS [facility] Comment: II Reference Range Negative:<20 Weak Positive: 20-39 Moderate Positive: 40-59 Strong Positive: >59 Narrative Performed At FASTING: UNKNOWN [facility] Other Results Text Performing Organization Information: Site ID: IG Name: [employer] [facility] Address: [address] [place] [phone] Director: Dr. Jos Santana Performing Organization Address City/State/Zipcode Phone Number SERENA [email or web address] [address]NETTE[address] [address] Sedimentation rate (11/27/2017 11:22 AM) Sedimentation rate 8 < OR=30 mm/h [facility] [place] Narrative Performed At FASTING: UNKNOWN [facility] Other Results Text Performing Organization Information: Site ID: RGA Name: [facility] Address: [address] [place] [phone] Director: Ju Rendon MD Performing Organization Address City/[facility] [place] Phone Number [employer] [address] [address] Rheumatoid factor (11/27/2017 11:22 AM) Rheumatoid factor <14 <14 IU/mL [facility] [place] Narrative Performed At FASTING: UNKNOWN [facility] Other Results Text Performing Organization Information: Site ID: RGA Name: [facility] Address: [address] [place] [phone] Director: Ju Rendon MD Performing Organization Address City/[facility] Phone Number [employer] [address] [address] C-reactive protein (11/27/2017 11:22 AM) CRP 4.1 <8.0 mg/L [facility] [place] Narrative Performed At FASTING: UNKNOWN [facility] Other Results Text Performing Organization Information: Site ID: RGA Name: [facility] Address: [address] [place] [phone] Director: Ju Rendon MD Performing Organization Address City/State/Zipcode Phone Number [employer] [address] [address] Uric acid level (11/27/2017 11:22 AM) Uric acid 9.8 (H) 2.5 - 7.0 mg/dL [facility] [place] Comment: Therapeutic target for gout patients: <6.0 mg/dL Narrative Performed At FASTING: UNKNOWN [facility] Other Results Text Performing Organization Information: Site ID: LARON Name: [facility] Address: [address] [place] [phone] Director: Ju Rendon MD Performing Organization Address City/State/Zipcode Phone Number [facility] [place] [address] [place] [address] Comprehensive metabolic panel (11/27/2017 11:22 AM) Glucose 81 65 - 99 mg/dL [facility] Comment: [place] Fasting reference interval BUN, whole blood 30 (H) 7 - 25 mg/dL [facility] [place] Creatinine 0.99 0.50 - 0.99 [facility] Comment: mg/dL [place] For patients >49 years of age, the reference limit for Creatinine is approximately 13% higher for people identified as -Citizen Of [place]. EGFR Non-Afr. Citizen Of [place] 61 > OR=60 [email or web address] mL/min/1.73m2 [place] EGFR 71 > OR=60 [email or web address] mL/min/1.73m2 [place] BUN/creatinine ratio 30 (H) 6 - 22 (calc) [facility] [place] Sodium 144 135 - 146 mmol/L [email or web address] [place] Potassium 4.3 3.5 - 5.3 mmol/L [email or web address] [place] Chloride 106 98 - 110 mmol/L [email or web address] [place] CO2 27 20 - 31 mmol/L [facility] [place] Calcium 9.4 8.6 - 10.4 mg/dL [facility] [place] Protein 7.4 6.1 - 8.1 g/dL [facility] [place] Albumin, S 4.0 3.6 - 5.1 g/dL [email or web address] [place] Globulin, total 3.4 1.9 - 3.7 g/dL [facility] (calc) [place] Albumin/globulin ratio 1.2 1.0 - 2.5 (calc) [email or web address] [place] Total bilirubin 0.3 0.2 - 1.2 mg/dL [email or web address] [place] Alkaline phosphatase 88 33 - 130 U/L [email or web address] [place] AST 18 10 - 35 U/L [email or web address] [place] ALT 18 6 - 29 U/L [email or web address] [place] Narrative Performed At FASTING: UNKNOWN [facility] Other Results Text Performing Organization Information: Site ID: LARON Name: [facility] Address: [address] [place] [address] Director: Ju Rendon MD Performing Organization Address City/State/Zipcode Phone Number [email or web address] [place] [address] [place] [phone] Medium Joint Arthrocentesis (11/24/2017 10:30 AM) Narrative Performed At Bar Bazzi III, MD 11/24/2017 12:57 PM Medium Joint Arthrocentesis Supporting Documentation Indications: pain Procedure Details Preparation: Patient was prepped and draped in the usual sterile fashion Location: wrist - Wrist joint: left distal radioulnar joint. MRI Temporomandibular Joints (09/25/2017 11:05 AM) Narrative Performed At EXAMINATION:MRI TEMPOROMANDIBULAR JOINTS [facility] CLINICAL HISTORY:M26.623 Arthralgia of bilateral temporomandibular [...] the right temporomandibular joint as detailed above. [id number] Procedure Note Hm Interface, Radiology Results Incoming - 09/25/2017 12:02 PM BMX RIDER EXAMINATION: MRI TEMPOROMANDIBULAR JOINTS CLINICAL HISTORY: M26.623 [...] the right temporomandibular joint as detailed above. [id number] Performing Organization Address City/State/Zipcode Phone Number [facility] [address] [place] [address] after 07/12/2017 Insurance Payer Benefit Plan / Group Subscriber ID Type Phone Address MEDICARE MEDICARE PART A AND B xxxxxxxxxx Medicare [place] MEDICAID MEDICAID xxxxxxxxx Medicaid [id number] [id number] [address] [place] [address]
--- OUTSIDE RECORDS SUMMARY | 2018-07-13 22:08 | XMS REPORT ---
:1955 [facility] Address [address] [place] [address] Care Team Providers Name Role Phone ZABRINA STALLWORTH Unavailable Unavailable Problems This patient has no known problems. Allergies, Adverse Reactions, Alerts This patient has no known allergies or adverse reactions. Medications This patient has no known medications. Results Test Description Test Time Test Comments Text Results Atomic Results Result Comments RAD, TEMPOROMANDIBULAR 2017-08-17 Reason for FINAL REPORT PATIENT ID: JOINT, BILATERAL 17:16:00 exam:->s/p [id number] TECHNIQUE: reduction Open and closed mouth views of both temporomandibular joints dated 08/17/2017. HISTORY: Status post reduction. COMPARISON: No mandibular radiographs dated 08/16/2017. IMPRESSION:There has been interval relocation of the right temporomandibular joint. Left temporal mandibular joint is unremarkable in appearance. No visualized fracture. Signed: Myriam Velez MDReport Verified Date/Time: 08/17/2017 17:16:54 Reading Location: [facility] Radiology Reading Room -NUCLEAR ANTIBODY (TING) 2017-08-17 14:15:00 Test Item Value Reference Range Comments ANTI-NUCLEAR ANTIBODY (TING) (BEAKER) (test rkma=035) Negative Negative SEDIMENTATION [id number] 09:30:00 Test Item Value Reference Range Comments SEDIMENTATION RATE, ERYTHROCYTE (BEAKER) (test 51 mm/HR 0-30 sznc=583) RAD, TEMPOROMANDIBULAR JOINT, [id number] 18:19:00Reason for exam:-> lock jawFINAL REPORT TECHNIQUE: [...] MDReport Verified Date/Time: 08/16/2017 18:19:33 Reading Location: [address] Consult Reading Room Electronically signed by: TERRI CHIRINOS MD on 2016 06:19 PMCBC W/PLT COUNT & AUTO [id number] 11:27:00 Test Item Value Reference Range Comments WHITE BLOOD CELL COUNT (BEAKER) (test ipxp=296) 8.8 K/ L 3.5-10.5 RED BLOOD CELL COUNT (BEAKER) (test zxpu=916) 3.72 M/ L 3.93-5.22 HEMOGLOBIN (BEAKER) (test kttv=093) 11.7 GM/DL 11.2-15.7 HEMATOCRIT (BEAKER) (test zbdw=553) 37.9 % 34.1-44.9 MEAN CORPUSCULAR VOLUME (BEAKER) (test orsd=198) 101.9 fL 79.4-94.8 MEAN CORPUSCULAR HEMOGLOBIN (BEAKER) (test 31.5 pg 25.6-32.2 asba=945) MEAN CORPUSCULAR HEMOGLOBIN CONC (BEAKER) (test 30.9 GM/DL 32.2-35.5 tapi=963) RED CELL DISTRIBUTION WIDTH (BEAKER) (test 12.9 % 11.7-14.4 lrbs=548) PLATELET COUNT (BEAKER) (test knxa=616) 181 K/CU MM 150-450 MEAN PLATELET VOLUME (BEAKER) (test cwve=898) 11.1 fL 9.4-12.3 NUCLEATED RED BLOOD CELLS (BEAKER) (test 0 /100 WBC 0-0 nmyw=071) NEUTROPHILS RELATIVE PERCENT (BEAKER) (test 75 % rvrf=900) LYMPHOCYTES RELATIVE PERCENT (BEAKER) (test 16 % innf=965) MONOCYTES RELATIVE PERCENT (BEAKER) (test 6 % dieq=104) EOSINOPHILS RELATIVE PERCENT (BEAKER) (test 2 % lwov=279) BASOPHILS RELATIVE PERCENT (BEAKER) (test 1 % cdtu=579) NEUTROPHILS ABSOLUTE COUNT (BEAKER) (test 6.58 K/ L 1.56-6.13 bmqr=607) LYMPHOCYTES ABSOLUTE COUNT (BEAKER) (test 1.38 K/ L 1.18-3.74 lcql=536) MONOCYTES ABSOLUTE COUNT (BEAKER) (test 0.54 K/ L 0.24-0.36 ztvg=028) EOSINOPHILS ABSOLUTE COUNT (BEAKER) (test 0.18 K/ L 0.04-0.36 bdke=585) BASOPHILS ABSOLUTE COUNT (BEAKER) (test 0.06 K/ L 0.01-0.08 eckt=023) IMMATURE GRANULOCYTES-RELATIVE PERCENT (BEAKER) 0 % 0-1 (test mxaf=2067) (MANUAL DIFFERENTIAL)2017-08-16 11:27:00 Test Item Value Reference Range Comments TOTAL COUNTED (BEAKER) (test oglp=0944) WBC MORPHOLOGY (BEAKER) (test tmgy=749) Normal PLT MORPHOLOGY (BEAKER) (test kmtm=135) Normal RBC MORPHOLOGY (BEAKER) (test gqhc=940) Normal [id number] 07:47:00 Test Item Value Reference Range Comments PHOSPHORUS (BEAKER) (test wvby=442) 3.1 mg/dL 2.3-4.7 [id number] 07:47:00 Test Item Value Reference Range Comments MAGNESIUM (BEAKER) (test hgwj=780) 1.7 mg/dL 1.6-2.6 BASIC METABOLIC [id number] 07:47:00 Test Item Value Reference Range Comments SODIUM (BEAKER) (test 144 meq/L 136-145 tvfh=589) POTASSIUM (BEAKER) (test 3.5 meq/L 3.5-5.1 gwuh=874) CHLORIDE (BEAKER) (test 111 meq/L 98-107 ldaj=519) CO2 (BEAKER) (test 24 meq/L 22-29 umvg=922) BLOOD UREA NITROGEN 14 mg/dL 7-21 (BEAKER) (test zxxv=632) CREATININE (BEAKER) (test 0.80 mg/dL 0.57-1.25 udnt=294) GLUCOSE RANDOM (BEAKER) 79 mg/dL 70-105 (test uhah=091) CALCIUM (BEAKER) (test 8.3 mg/dL 8.4-10.2 heel=874) EGFR (BEAKER) (test 73 mL/min/1.73 sq m ESTIMATED GFR IS NOT hbsd=9986) ACCURATE CREATININE CLEARANCE IN PREDICTING GLOMERULAR FILTRATION RATE. ESTIMATED GFR IS NOT APPLICABLE FOR DIALYSIS PATIENTS. HEPATIC FUNCTION [id number] 07:47:00 Test Item Value Reference Range Comments TOTAL PROTEIN (BEAKER) (test kezy=773) 6.8 gm/dL 6.0-8.3 ALBUMIN (BEAKER) (test lblu=1343) 3.6 g/dL 3.5-5.0 BILIRUBIN TOTAL (BEAKER) (test kloc=025) 0.5 mg/dL 0.2-1.2 BILIRUBIN DIRECT (BEAKER) (test muzh=335) 0.2 mg/dL 0.1-0.5 ALKALINE PHOSPHATASE (BEAKER) (test bfrk=152) 96 U/L 40-150 AST (SGOT) (BEAKER) (test qusa=390) 74 U/L 5-34 ALT (SGPT) (BEAKER) (test tlpr=339) 38 U/L 6-55 FL, [id number] 16:10:00Reason for exam:->dilated ductsFINAL REPORT ERCP. CLINICAL [...] Juaneport Verified Date/Time: 08/15/2017 16:10:57 Reading Location: [address] Radiology Reading Room [id number] 13:55:00 Test Item Value Reference Range Comments POC-POTASSIUM (BEAKER) (test 3.9 meq/L 3.6-5.[address] [facility] [address] [facility] rkei=0742) [facility] [address]
[2018-07-13 22:37] LABS: Absolute Lymphocytes (CBC) 1.8 K/uL (0.7-4.9); Absolute Monocytes 0.5 K/uL (0.1-1.3); Absolute Neutrophil 4.7 K/uL (1.8-8.0); Basophils % 1.4 % (0-1.3); Eosinophils % 5.4 % (0-4.4); Hematocrit 37.8 % (36.0-45.0); MCH 31.4 pg (27.0-35.0); MCV 92.3 fL (80-100); MPV 9.2 fL (7.6-11.3); Monocytes % 6.8 % (3.3-12.3)
[2018-07-13] MEDS ORDERED: ONDANSETRON 4 MG/2 ML VIAL ONE (22:52)
[2018-07-13] MEDS ORDERED: MORPHINE 4 MG/ML SYR ONE (22:52)
[2018-07-13 22:58] LABS: ALT/SGPT 19 U/L (12-78); AST/SGOT 23 U/L (15-37); Albumin 3.4 g/dL (3.4-5.0); Alkaline Phosphatase 99 U/L (45-117); BUN Blood Urea Nitrogen 23 mg/dL (7-18); Bicarbonate 28 mmol/L (21-32); Bilirubin Direct < 0.1 mg/dL (0-0.2); Bilirubin Total 0.3 mg/dL (0.2-1.0); Glucose Level 123 mg/dL (74-106); Lipase 654 U/L (73-393); Protein, Total 7.5 g/dL (6.4-8.2); Sodium Level 143 mmol/L (136-145)
[2018-07-13 23:52] LABS: Urine Blood 2+ (NEG); Urine Glucose NEGATIVE (NEG); Urine Protein 1+ (NEG)
[2018-07-14] MEDS ORDERED: MORPHINE 4 MG/ML SYR ONE (00:28)
[2018-07-14] MEDS ORDERED: NA CHLORIDE 0.9% 2,000 ML ONE (01:14)
--- NOTE | 2018-07-14 01:24 | ER ---
Nurse's Notes [facility] Name: Marita Hernandez Age: 62 yrs Sex: Female : 1955 Arrival Date: 07/13/2018 Time: 22:09 Bed 8 Private MD: Eliu Newton E Diagnosis: Nausea and vomiting;Lower abdominal pain, unspecified Presentation: 07/13 22:18 Presenting complaint: Patient states: Lower abd pain for one day with vomiting. la1 Transition of care: patient was not received from another setting of care. Onset of symptoms was July 13, 2018. Risk Assessment: Do you want to hurt yourself or someone else? Patient reports no desire to harm self or others. Initial Sepsis Screen: Does the patient meet any 2 criteria? No. Patient's initial sepsis screen is negative. Does the patient have a suspected source of infection? No. Patient's initial sepsis screen is negative. Care prior to arrival: None. 22:18 Method Of Arrival: Ambulatory la1 22:18 Acuity: MEHRDAD 3 la1 Historical: - Allergies: 22:21 tramadol; la1 22:21 Aspirin; la1 - Home Meds: 22:21 Creon 36,000-114,000- 180,000 unit Oral cpDR 1 cap four times a day [Active]; Diovan 80 la1 mg Oral tab 2 times per day [Active]; Lasix 40 mg Oral tab 1 tab once daily [Active]; losartan Oral [Active]; Laclede 10-325 mg Oral tab as needed [Active]; Phenergan Oral 25 mg as needed [Active]; potassium chloride 10 mEq Oral cpER 1 cap 2 times per day [Active]; Singulair 10 mg Oral tab 1 tab once daily [Active]; Zyrtec 10 mg Oral tab 1 tab as needed [Active]; - PMHx: 22:21 acid reflux; Hypertension; Pancreatitis; la1 - Immunization history:: Adult Immunizations up to date. - Social history:: Smoking status: Patient/guardian denies using tobacco. - Ebola Screening: : No symptoms or risks identified at this time. Screenin:22 Abuse screen: Denies threats or abuse. Nutritional screening: No deficits noted. la1 Tuberculosis screening: No symptoms or risk factors identified. Fall Risk None identified. Assessment: 22:21 General: Appears uncomfortable, Behavior is calm, cooperative. Pain: Complains of pain la1 in right lower quadrant and left lower quadrant Pain currently is 8 out of 10 on a pain scale. Neuro: Level of Consciousness is awake, alert, obeys commands, Oriented to person, place, time, situation. Cardiovascular: Capillary refill < 3 seconds Patient's skin is warm and dry. Respiratory: Airway is patent Respiratory effort is even, unlabored, Respiratory pattern is regular, symmetrical. GI: Abdomen is round distended, Bowel sounds present X 4 quads. Abd is soft and non tender X 4 quads. : No signs and/or symptoms were reported regarding the genitourinary system. 22:57 Reassessment: Patient and/or family updated on plan of care and expected duration. Pain tl3 level reassessed. Patient is alert, oriented x 3, equal unlabored respirations, skin warm/dry/pink. pt provided urine specimen, CT brought oral contrast, pt to start drinking at 11:10 pm to give the zofran adequate time to take effect, lights dimmed, no other needs at this time. 07/14 00:20 Reassessment: Patient appears in no apparent distress at this time. No changes from la1 previously documented assessment. Patient and/or family updated on plan of care and expected duration. Pain level reassessed. Patient is alert, oriented x 3, equal unlabored respirations, skin warm/dry/pink. 01:53 Reassessment: Awaiting completion of IV fluids before discharge. la1 02:29 Reassessment: Patient appears in no apparent distress at this time. No changes from la1 previously documented assessment. Patient and/or family updated on plan of care and expected duration. Pain level reassessed. Patient is alert, oriented x 3, equal unlabored respirations, skin warm/dry/pink. Vital Signs: 07/13 22:21 BP 135 / 74; Pulse 82; Resp 16; Temp 97.3; Pulse Ox 98% on R/A; Weight 63.5 kg; Height la1 5 ft. 2 in. (157.48 cm) (R); 22:57 BP 142 / 87; Pulse 84; Resp 18; Pulse Ox 98% on R/A; Pain 9/10; tl3 07/14 00:15 BP 125 / 72; Pulse 71; Resp 19; Pulse Ox 99% on R/A; Pain 8/10; rr5 01:04 BP 125 / 70; Pulse 81; Resp 16; Pulse Ox 98% on R/A; la1 02:29 BP 121 / 74; Pulse 71; Resp 16; Temp 97.6; Pulse Ox 98% on R/A; la1 11 22:21 Body Mass Index 25.61 (63.50 kg, 157.48 cm) la1 ED Course: 07/13 22:09 Patient arrived in ED. am2 22:09 Eliu Newton MD is Private Physician. am2 22:13 Yovani Doe PA is PHCP. cp 22:13 Eliu Matias MD is Attending Physician. cp 22:17 Francisco J Pizano RN is Primary Nurse. la1 22:19 Triage completed. la1 22:21 Arm band placed on right wrist. la1 22:22 Call light in reach. la1 22:29 Inserted saline lock: 22 gauge in right antecubital area, using aseptic technique. la1 Blood collected. 22:57 Urine Dipstick--Ancillary (enter results) Sent. tl3 22:57 No provider procedures requiring assistance completed. tl3 23:15 XRAY Chest (1 view) In Process Unspecified. EDMS 11 00:[address] via wheelchair. kw1 00:51 CT Abd/Pelvis - W/Contrast: give oral contrast In Process Unspecified. EDMS 00:54 CT completed. Patient tolerated procedure well. Patient moved back from CT. kw1 02:29 IV discontinued, intact, bleeding controlled, No redness/swelling at site. Pressure la1 dressing applied. Administered Medications: 07/13 22:56 Drug: morphine 4 mg Route: IVP; Infused Over: 2 mins; Site: right antecubital; tl3 07/14 00:21 Follow up: Response: No adverse reaction; Pain is decreased la1 07/13 22:56 Drug: Zofran 4 mg Route: IVP; Infused Over: 2 mins; Site: right antecubital; tl3 07/14 00:21 Follow up: Response: No adverse reaction la1 00:25 Drug: morphine 4 mg {Note: lower abdominal pain, pain score of 8/10.} Route: IVP; Site: rr5 right antecubital; 01:54 Follow up: Response: No adverse reaction; Pain is decreased la1 01:11 Drug: NS 0.9% 1000 ml Route: IV; Rate: 1 bolus; Site: right antecubital; la1 01:54 Follow up: IV Status: Completed infusion la1 01:11 Drug: NS 0.9% 1000 ml Route: IV; Rate: 100 ml/hr; Site: right antecubital; la1 02:29 Follow up: IV Status: Completed infusion la1 Outcome: 01:23 Discharge ordered by MD. cp 02:29 Discharged to home via wheelchair. la1 02:29 Condition: stable 02:29 Discharge instructions given to patient, Instructed on discharge instructions, follow up and referral plans. medication usage, Demonstrated understanding of instructions, follow-up care, medications, Prescriptions given X 3. 02:32 Patient left the ED. la1 Signatures: Dispatcher [employer] EDMS Francisco J Pizano RN RN la1 Yovani Doe PA PA cp Moreno, Amanda am2 Josefa Chua kw1 Kalpana Diane RN RN tl3 Ang Branham RN RN rr5 Corrections: (The following items were deleted from the chart) 00:21 00:00 BP 125 / 72; Pulse 71bpm; Resp 19bpm; Pulse Ox 99% RA; Pain 8/10; rr5 rr5
--- NOTE | 2018-07-14 01:24 | EDPHYS ---
Physician Documentation [facility] Name: Marita Hernandez Age: 62 yrs Sex: Female : 1955 Arrival Date: 07/13/2018 Time: 22:09 Bed 8 Private MD: Eliu Newton E ED Physician Eliu Matias HPI: 07/13 22:45 This 62 yrs old Female presents to ER via Ambulatory with complaints of cp Abdominal Pain, Vomiting. 22:45 The patient presents with abdominal pain in the lower abdomen. Onset: The cp symptoms/episode began/occurred 1 week(s) ago. 22:45 The symptoms do not radiate. cp 22:45 Associated signs and symptoms: Pertinent positives: nausea, vomiting, Pertinent cp negatives: blood in stools, chest pain, diarrhea, fever, shortness of breath. Historical: - Allergies: 22:21 tramadol; la1 22:21 Aspirin; la1 - Home Meds: 22:21 Creon 36,000-114,000- 180,000 unit Oral cpDR 1 cap four times a day [Active]; Diovan 80 la1 mg Oral tab 2 times per day [Active]; Lasix 40 mg Oral tab 1 tab once daily [Active]; losartan Oral [Active]; Hemet 10-325 mg Oral tab as needed [Active]; Phenergan Oral 25 mg as needed [Active]; potassium chloride 10 mEq Oral cpER 1 cap 2 times per day [Active]; Singulair 10 mg Oral tab 1 tab once daily [Active]; Zyrtec 10 mg Oral tab 1 tab as needed [Active]; - PMHx: 22:21 acid reflux; Hypertension; Pancreatitis; la1 - Immunization history:: Adult Immunizations up to date. - Social history:: Smoking status: Patient/guardian denies using tobacco. - Ebola Screening: : No symptoms or risks identified at this time. ROS: 22:50 Constitutional: Negative for body aches, chills, fever, poor PO intake. cp 22:50 Eyes: Negative for injury, pain, redness, and discharge. cp 22:50 ENT: Negative for drainage from ear(s), ear pain, sore throat, difficulty swallowing, difficulty handling secretions. 22:50 Cardiovascular: Negative for chest pain, edema, palpitations. 22:50 Respiratory: Negative for cough, shortness of breath, wheezing. 22:50 Abdomen/GI: Positive for abdominal pain, nausea, vomiting, Negative for diarrhea, constipation, black/tarry stool, rectal bleeding. 22:50 Back: Negative for pain at rest, pain with movement, radiated pain. 22:50 : Negative for urinary symptoms. 22:50 Skin: Negative for cellulitis, rash. 22:50 Neuro: Negative for altered mental status, headache, weakness. 22:50 All other systems are negative. Exam: 23:00 Constitutional: The patient appears in no acute distress, alert, awake, cp non-diaphoretic, non-toxic, well developed, well nourished, uncomfortable. 23:00 Head/Face: Normocephalic, atraumatic. cp 23:00 Eyes: Periorbital structures: appear normal, Pupils: equal, round, and reactive to light and accomodation, Extraocular movements: intact throughout, Conjunctiva: normal, no exudate, no injection, Sclera: no appreciated abnormality, Lids and lashes: appear normal, bilaterally. 23:00 ENT: External ear(s): are unremarkable, Nose: is normal, Mouth: Lips: moist, Oral mucosa: pink and intact, moist, Posterior pharynx: is normal, airway is patent, no erythema, no exudate, Voice: is normal. 23:00 Chest/axilla: Inspection: normal, Palpation: is normal, no crepitus, no tenderness. 23:00 Cardiovascular: Rate: normal, Rhythm: regular. 23:00 Respiratory: the patient does not display signs of respiratory distress, Respirations: normal, no use of accessory muscles, no retractions, no splinting, no tachypnea, labored breathing, is not present, Breath sounds: are clear throughout, no decreased breath sounds, no stridor, no wheezing. 23:00 Abdomen/GI: Inspection: abdomen appears normal, Bowel sounds: active, all quadrants, Palpation: soft, in all quadrants, moderate abdominal tenderness, in the right lower quadrant, rebound tenderness, is not appreciated, voluntary guarding, is elicited in the right lower quadrant. 23:00 Back: CVA tenderness, is absent. 23:00 Skin: cellulitis, is not appreciated, no rash present. 23:00 Neuro: Orientation: to person, place \T\ time. Mentation: lucid, able to follow commands, Cerebellar function: is grossly normal, Motor: moves all fours, strength is normal, Sensation: no obvious gross deficits. Vital Signs: 22:21 BP 135 / 74; Pulse 82; Resp 16; Temp 97.3; Pulse Ox 98% on R/A; Weight 63.5 kg; Height la1 5 ft. 2 in. (157.48 cm) (R); 22:57 BP 142 / 87; Pulse 84; Resp 18; Pulse Ox 98% on R/A; Pain 9/10; tl3 07/14 00:15 BP 125 / 72; Pulse 71; Resp 19; Pulse Ox 99% on R/A; Pain 8/10; rr5 01:04 BP 125 / 70; Pulse 81; Resp 16; Pulse Ox 98% on R/A; la1 02:29 BP 121 / 74; Pulse 71; Resp 16; Temp 97.6; Pulse Ox 98% on R/A; la1 07/13 22:21 Body Mass Index 25.61 (63.50 kg, 157.48 cm) la MDM: 07/13 22:13 Patient medically screened. cp 23:00 Differential diagnosis: bowel obstruction, gastritis, non-specific abd pain, cp pancreatitis, Ureterolithiasis, urinary tract infection. 07/14 01:22 Data reviewed: vital signs, nurses notes, lab test result(s), radiologic studies, CT cp scan. 01:22 Response to treatment: the patient's symptoms have markedly improved after treatment, cp and as a result, I will discharge patient. Special discussion: Based on the patient's Hx, exam, and Dx evaluation, there is no indication for emergent surgery or inpatient Tx. It is understood by the patient/guardian that if the Sx's persist or worsen they need to return immediately for re-evaluation. 07/13 22:28 Order name: Basic Metabolic Panel; Complete Time: 00:06 la1 07/14 00:06 Interpretation: Normal except: GLUC 123; BUN 23; GFR 64. cp 07/13 22:28 Order name: CBC with Diff; Complete Time: 22:40 la1 07/13 22:28 Order name: Hepatic Function; Complete Time: 00:06 la1 07/13 22:28 Order name: Lipase; Complete Time: 00:06 la1 07/14 00:06 Interpretation: Abnormal: LIP 654. cp 07/13 22:56 Order name: Urine Dipstick--Ancillary (enter results); Complete Time: 00:06 ds4 07/13 22:28 Order name: IV Saline Lock; Complete Time: 22:29 la1 07/13 22:44 Order name: CT Abd/Pelvis - W/Contrast: give oral contrast cp 07/13 22:44 Order name: XRAY Chest (1 view) cp 07/13 22:28 Order name: Labs collected and sent; Complete Time: 22:29 la1 07/13 22:28 Order name: Urine Dipstick-Ancillary (obtain specimen); Complete Time: 22:55 la1 07/14 01:12 Order name: PO challenge; Complete Time: 01:13 cp Administered Medications: 07/13 22:56 Drug: morphine 4 mg Route: IVP; Infused Over: 2 mins; Site: right antecubital; tl3 07/14 00:21 Follow up: Response: No adverse reaction; Pain is decreased la1 07/13 22:56 Drug: Zofran 4 mg Route: IVP; Infused Over: 2 mins; Site: right antecubital; tl3 07/14 00:21 Follow up: Response: No adverse reaction la1 00:25 Drug: morphine 4 mg {Note: lower abdominal pain, pain score of 8/10.} Route: IVP; Site: rr5 right antecubital; 01:54 Follow up: Response: No adverse reaction; Pain is decreased la1 01:11 Drug: NS 0.9% 1000 ml Route: IV; Rate: 1 bolus; Site: right antecubital; la1 01:54 Follow up: IV Status: Completed infusion la1 01:11 Drug: NS 0.9% 1000 ml Route: IV; Rate: 100 ml/hr; Site: right antecubital; la1 02:29 Follow up: IV Status: Completed infusion la1 Disposition: 04:11 Co-signature as Attending Physician, Eliu Matias MD I agree with the assessment and wa plan of care. Disposition: 07/14/18 01:23 Discharged to Home. Impression: Nausea and vomiting, Lower abdominal pain, unspecified. - Condition is Stable. - Discharge Instructions: Abdominal Pain, Adult, Nausea and Vomiting, Adult. - Prescriptions for Bentyl 20 mg Oral Tablet - take 1 tablet by ORAL route every 6 hours As needed; 20 tablet. Zofran 4 mg Oral Tablet - take 1 tablet by ORAL route every 12 hours As needed; 20 tablet. Miralax 17 gram/dose Oral - take 1 packet by ORAL route once daily for 14-21 days dilute powder in 8 ounces of water or juice; 20 packet. - Medication Reconciliation Form, Thank You Letter, Antibiotic Education, Prescription Opioid Use form. - Follow up: Private Physician; When: 1 - 2 days; Reason: Recheck today's complaints. - Problem is new. - Symptoms have improved. Signatures: Dispatcher [employer] [facility] Francisco J Pizano RN RN la1 Yovani Doe PA PA cp Eliu Matias MD MD wa Kalpana Diane RN RN tl3 Ang Branham RN RN rr5 Corrections: (The following items were deleted from the chart) 07/13 22:39 22:29 Creatinine for Radiology+C.LAB.BRZ ordered. [facility] 07/14 02:32 01:23 07/14/2018 01:23 Discharged to Home. Impression: Nausea and vomiting; Lower la1 abdominal pain, unspecified. Condition is Stable. Forms are Medication Reconciliation Form, Thank You Letter, Antibiotic Education, Prescription Opioid Use. Follow up: Private Physician; When: 1 - 2 days; Reason: Recheck today's complaints. Problem is new. Symptoms have improved. cp
[2018-07-14 03:32] VITALS: O2SAT 98
[2018-07-14 03:33] VITALS: BP 121/74; TEMP 97.6
--- NOTE | 2018-07-14 09:54 | RAD REPORT ---
EXAM DESCRIPTION: CT - Abdomen Pelvis W Contrast - 07/14/2018 6:30 am CLINICAL HISTORY: Abdominal pain. COMPARISON: 2016 TECHNIQUE: Computed axial tomography of the abdomen and pelvis was obtained. 100 cc Isovue-300 is ad ministered intravenously. Oral contrast was given. Preliminary report was given by virtual radiologic and reviewed prior to dictation All CT scans are performed using dose optimization technique as appropriate and may include automated exposure control or mA/KV adjustment according to patient size. FINDINGS: Gallbladder has been removed. Prominence of the biliary tree persists. Pneumobilia is unchanged The liver, spleen, pancreas, adrenals and kidneys appear unremarkable. Small renal cysts are noted The appendix has been resected. A hysterectomy has been performed. . There is no evidence of diverticulitis IMPRESSION: No acute abnormality displayed
--- NOTE | 2018-07-14 09:57 | RAD REPORT ---
EXAM DESCRIPTION: Kaity Single View07/13/2018 11:15 pm CLINICAL HISTORY: abd pain COMPARISON: none FINDINGS: The lungs appear clear of acute infiltrate. The heart is normal size IMPRESSION: No acute abnormalities displayed
== END 2018-07-14 02:32 | disposition home or self-care (01) ==
LOC: ER 22:05
DX: R11.2 Nausea with vomiting, unspecified (principal); I10 Essential (primary) hypertension; Z88.5 Allergy status to narcotic agent; Z88.6 Allergy status to analgesic agent
CPT/HCPCS: 36415; 71045; 74177; 80048; 80076; 81003; 83690; 85025; 96361; 96374; 96375; 99284; J2405; J7030; Q9967

== ENCOUNTER 2018-07-16 17:25 | Emergency (ER) | payer OTHER ==
--- OUTSIDE RECORDS SUMMARY | 2018-07-16 17:29 | XMS REPORT | Clinical Summary ---
:1955 Author Organization [facility] Address [address] [place] [address] Care Team Providers Name Role Phone Kevin Robles MD Primary Care Provider Allergies Active Allergy Reactions Severity Noted Date Comments Aspirin GI Intolerance 09/14/2017 Pass out too Meperidine Itching 09/14/2017 Tramadol Itching High 05/17/2018 Medications Medication Sig Dispensed Refills Start Date End Date Status dexlansoprazole Take 60 mg by 0 Active (DEXILANT) 60 mg mouth daily. capsule HYDROcodone-acetamin TAKE ONE (1) 0 11/06/2017 Active ophen (NORCO) 10-325 TABLET(S) BY mg per tablet MOUTH FOUR TIMES A DAY. furosemide (LASIX) Take 40 mg by 0 Active 40 mg tablet mouth 2 (two) times a day. ALPRAZolam (XANAX) TAKE ONE (1) 0 02/27/2018 Active 0.5 MG tablet TABLET(S) BY MOUTH THREE TIMES A DAY NEEDED FOR ANXIETY. allopurinol Take 1 tablet by 5 04/26/2018 Active (ZYLOPRIM) 100 MG mouth daily. tablet RESTASIS 0.05 % Administer 1 4 02/14/2018 Active ophthalmic emulsion drop to both eyes 2 (two) times a day. hydrOXYzine (ATARAX) Take 1 tablet by 0 Active 25 MG tablet mouth as needed. lamoTRIgine Take 2 tablets 0 Active (LaMICtal) 100 MG by mouth every tablet morning. losartan (COZAAR) Take 1 tablet by 5 04/23/2018 Active 100 MG tablet mouth every morning. montelukast Take 1 tablet by 0 Active (SINGULAIR) 10 mg mouth as needed. tablet ranitidine (ZANTAC) Take 1 tablet by 0 Active 150 MG tablet mouth daily. HYDROcodone-acetamin [...] HYDROcodone-acetamin hydrocodone 10 mg-acetaminophen 325 mg tablet 0 Active ophen (NORCO) 10-325 Take 1 tablet 4 times a day by oral route for 30 days. mg per tablet valsartan (DIOVAN) Take 160 mg by 0 05/17/20 Discontinued 160 MG tablet mouth daily. 18 potassium chloride Take 10 mEq by 0 05/17/20 Discontinued (K-DUR,KLOR-CON) 10 mouth 2 (two) 18 MEQ CR tablet times a day. amLODIPine (NORVASC) Take 5 mg by 0 05/17/20 Discontinued 5 mg tablet mouth daily. [...] Amount: 8 tablets HYDROcodone-acetamin as needed for 0 01/30/2018 05/17/20 Discontinued ophen (NORCO) 10-325 Pain. 18 mg per tablet Active Problems Problem Noted Date Closed -punch intra-articular fracture of distal end of right radius 2017 Overview: Added automatically from request for surgery [id number] Resolved Problems Problem Noted Date Resolved Date DRUJ (distal radioulnar joint) arthrosis, primary, left 12/19/2017 03/20/2018 Overview: Added automatically from request for surgery [id number] Encounters Date Type Specialty Care Team Description [...] routine healing, subsequent encounter (Primary Dx) 05/17/2018 Anesthesia Event General Surgery Anjelica Pérez, SEO PROFESSIONAL 05/17/2018 Surgery General Surgery [facility]zi RIGHT ORIF R (OPEN Cal MARINELLI MD REDUCTION INTERNAL FIXATION RIGHT) DISTAL RADIUS FX (FRACTURE) (INTRA-ARTICULAR) 05/17/2018 [facility] General Surgery Bar Bazzi Encounter Cal MARINELLI MD 05/15/2018 [facility] Radiology Bar Bazzi Encounter Cal MARINELLI MD 05/15/2018 [facility] Radiology Bar Bazzi Encounter Cal MARINELLI MD 05/15/2018 Office Visit Orthopedic Surgery Bar [...] of right radius, initial encounter (Primary Dx) 05/04/2018 [facility] Radiology Taye Hunt Encounter MD RACHEL 05/04/2018 [facility] Radiology Taye Hunt Encounter MD RACHEL 05/04/2018 Office Visit Orthopedic Surgery Taye Hunt Displaced fracture of MD RACHEL fifth metatarsal bone, left foot, initial encounter for closed fracture (Primary Dx) 04/16/2018 Office Visit Orthopedic Surgery Taye Nava Complete tear of left W.MD rotator cuff (Primary Dx) 03/20/2018 Office Visit Orthopedic Surgery Bar Bazzi Left wrist pain ( Primary Dx); Cal MARINELLI MD DRUSatya (distal radioulnar joint) arthrosis, primary, left 02/13/2018 [...] Orthopedic Surgery Bar Bazzi III, MD 12/28/2017 Anesthesia Event General Surgery Anjelica Pérez, SEO PROFESSIONAL 12/28/2017 Surgery General Surgery Bar Bazzi LEFT DARRACH PROCEDURE Cal MARINELLI MD 12/28/2017 [facility] General Surgery Bar Bazzi Encounter Cal MARINELLI MD 12/25/2017 Pre-Admit Testing Pre-Admission Bar [facility]zi Preop testing ( Primary Appointment Testing Cal MARINELLI MD Dx) 12/19/2017 Office Visit Orthopedic Surgery Bar Bazzi Wrist arthritis ( Primary Dx); Cal MARINELLI MD Chronic gout of multiple sites, unspecified cause 12/19/2017 Transcribe Orders Orthopedic Surgery Bar Bazzi ( distal radioulnar Cal MARINLELI MD joint) arthrosis, primary, left (Primary Dx) [...] (Primary Dx) 2017 [facility] Radiology Taye Nava Encounter MD Daquan 10/05/2017 Office Visit Orthopedic Surgery Keri Complete tear of left rotator cuff (Primary Dx); Janes Daly, Other secondary osteoarthritis of left wrist PA Taye Nava MD 09/28/2017 Telephone Anesthesiology Shannan Dacosta RN 09/27/2017 Anesthesia Event General Surgery Anjelica Pérez FNP 09/27/2017 Surgery General Surgery Taye Nava LEFT ARTHROSCOPY OF THE MD Daquan SHOULDER WITH DECOMPRESSION, ACROMIOCLAVICULAR RESECTION, AND ROTATOR CUFF REPAIR 09/27/2017 [facility] General Surgery Taye Nava MD 09/25/2017 [facility] Radiology Jeremias Mueller, DDS temporomandibular joint pain 09/25/2017 Orders Only Orthopedic Surgery Janes Saavedra PA 09/22/2017 Pre-Admit Testing Pre-Admission Taye Nava Preop testing ( Primary Appointment Testing MD Daquan Dx) 09/14/2017 Office Visit Orthopedic Surgery Taye Nava Complete tear of left MD Daquan rotator cuff (Primary Dx) 09/14/2017 Transcribe Orders Access Jeremias Mueller, DDS temporomandibular joint pain (Primary Dx) after 07/15/2017 Family History Medical History Relation Name Comments [...] [place] [address] [place] [address] [phone] Health Maintenance Due Date Last Done Comments CERVICAL CANCER SCREENING 1977 BREAST CANCER SCREENING 2006 COLON CANCER SCREENING 2006 SHINGRIX VACCINE (1 of 2) 2006 ZOSTER VACCINE 2016 INFLUENZA VACCINE 04/04/2018 Implants Implanted Type Area Floating Labor Gang Supervisor Device Shelf Model / Identifier Expiration Serial / Date Lot Screw, Polyaxial Non Locking, 3.5mm X 11mm, Ti, Virgen - [id number] [id number] IMPLANT Right: SKELETAL PANL [id number] TS / Implanted: Qty: 1 on 05/17/2018 by Bar Bazzi III, MD DEVICES Wrist DYNAMICS / VENDOR LOT NA K-Wire, Standard Tip, 1.5mm X 127mm - [id number] [id number] IMPLANT Right: SKELETAL KWIR STD [id number] / Implanted: Qty: 3 on 05/17/2018 by Bar Bazzi III, MD DEVICES Wrist DYNAMICS / VENDOR LOT NA Narrow Heads, 3 Hole Shaft, Right, Virgen Fossa Plate - [id number] [id number] IMPLANT Right: SKELETAL GMN RTN 3HL / Implanted: Qty: 1 on 05/17/2018 by Bar Bazzi III, MD DEVICES Wrist DYNAMICS / VENDOR LOT NA Threaded Peg, Locking, 2.3x17mm - [id number] [id number] IMPLANT Right: SKELETAL TPLS [id number] TS / Implanted: Qty: 1 on 05/17/2018 by Bar Bazzi III, MD DEVICES Wrist DYNAMICS / VENDOR LOT NA Fully Threaded Peg, Locking, 2.3mm X 19mm, Ti - [id number] [id number] IMPLANT Right : SKELETAL TPLS [id number] TS / Implanted: Qty: 3 on 05/17/2018 by Bar Bazzi III, MD DEVICES Wrist DYNAMICS / VENDOR LOT NA Fully Threaded Peg, Locking, 2.3mm X 20mm, Ti - [id number] [id number] IMPLANT Right : SKELETAL TPLS [id number] TS / Implanted: Qty: 1 on 05/17/2018 by Bar Bazzi III, MD DEVICES Wrist DYNAMICS / VENDOR LOT NA Screw, Cortical Locking, 3.5mm X 11mm, Ti - [id number] [id number] IMPLANT Right: SKELETAL COLS [id number] TS / Implanted: Qty: 1 on 05/17/2018 by Bar Bazzi III, MD DEVICES Wrist DYNAMICS / VENDOR LOT NA Screw, Polyaxial Non Locking, 3.5mm X 10mm, Ti, Virgen - [id number] [id number] IMPLANT Right: SKELETAL PANL [id number] TS / Implanted: Qty: 1 on 05/17/2018 by Bar Bazzi III, MD DEVICES Wrist DYNAMICS / VENDOR LOT NA [place] Pushlock Kntls Peek 4.5x24mm - [id number] Orthopedic Left: [employer] 03/03/2022 AR 1922PS / Implanted: 09/27/2017 (Quantity not on file) Trauma Shoulder / Implants [id number] [place] Pushlock Kntls Peek 4.5x24mm - [id number] Orthopedic Left: [employer] 03/03/2022 AR 1922PS / Implanted: 09/27/2017 (Quantity not on file) Trauma Shoulder / Implants [id number] [place] Healix Knotless Br Biocmpst W/ Orthocord 5.5mm - [id number] Orthopedic Left: [employer] 05/04/2020 [id number] / Implanted: 09/27/2017 (Quantity not on file) Trauma Shoulder / Implants [id number] Procedures Procedure Name Priority Date/Time Associated Comments Diagnosis EMG Routine 06/11/2018 XR WRIST 3+ VW RIGHT Routine 06/05/2018 [...] Location: OR Urgency: Elective Anesthesiologist: SIMON SANTAMARIA Resident/QI SPECIALIST/AA: CHAPARRO MEYER Performed by: resident/QI SPECIALIST/AA Preoxygenated with 100% O2: Yes C-spine Precautions [...] Elective Difficult Airway: No Anesthesiologist: SUMEET SORIA Resident/QI SPECIALIST/AA: ANATOLY GRIDER Performed by: anesthesiologist and resident/QI SPECIALIST/AA Preoxygenated with 100% O2: Yes C-spine Precautions [...] BLOCK Routine 09/27/2017 7:55 AM POST-OP PAIN JAVA SECURITY ARCHITECT Procedure Note - Karlos Khoury MD - 09/27/2017 7:54 AM JAVA SECURITY ARCHITECT Peripheral Block Performed by: KARLOS KHOURY Authorized [...] GLUCOSE Routine 09/27/2017 7:40 Results for AM JAVA SECURITY ARCHITECT this procedure are in the results section. MRI TEMPOROMANDIBULAR Routine 09/25/2017 11:05 Bilateral Results for JOINTS AM JAVA SECURITY ARCHITECT temporomandibular joint this procedure pain are in the results section. ZZESTIMATED GFR Routine 09/22/2017 11:03 Results for AM JAVA SECURITY ARCHITECT this procedure are in the results section. HC COMPLETE BLD COUNT Routine 09/22/2017 11:03 Preop testing Results for W/AUTO DIFF AM JAVA SECURITY ARCHITECT this procedure are in the results section. BASIC METABOLIC PANEL Routine 09/22/2017 11:03 Preop testing Results for AM JAVA SECURITY ARCHITECT this procedure are in the results section. after 07/15/2017 Results EMG General Request (06/11/2018) Narrative Performed At XR Wrist 3+ Vw Right (06/05/2018 3:45 PM CDT)Only the most recent of2 resultswithin the time period is included. Narrative Performed At PA, lateral, and oblique views of the right wrist demonstrate good HM [facility] maintenance of distal radius fracture alignment. Hardware in place without evidence of loosening or failure. Performing Organization Address City/[facility] Cent[facility] Phone Number [facility] [address] [place] [address] XR Foot 3+ Vw Left (06/01/2018 10:50 AM CDT) Narrative Performed At Three-view images of the left foot reveals evidence of a healing HM RADIANT shortened, angulated, and displaced middle third long oblique fifth metatarsal fracture. Bones are otherwise well mineralized. Performing Organization Address City/[facility] Cent[facility] Phone Number [facility] [address] [place] [address] [place] < 1 Hour (05/17/2018 11:18 AM CDT) Narrative Performed At EXAMINATION:OR [place] 1 HOUR [...] time. Performing Organization Address City/State/Zipcode Phone Number CHRISTOPHER [address] [place] [address] Estimated GFR (05/17/2018 8:51 AM CDT) Estimated GFR 66 mL/min/1.73 m2 [facility] DEPARTMENT OF Comment: PATHOLOGY AND GENOMIC CatergoryUnitsInterpretation MEDICINE G1 >=90 Normal or high G2 60-89Mildly decreased A1s19-34Awsijy to moderately decreased M7t50-76Mqpmuxxnsi to severely decreased G4 15-29Severely decreased G5 <15Kidney failure The eGFR was calculated using the Chronic Kidney Disease Epidemiology Collaboration (CKD-EPI) equation. Interpretation is based on recommendations of the National Kidney Foundation-Kidney Disease Outcomes Quality Initiative (NKF-KDOQI) published in 2014. Specimen Plasma specimen Performing Organization Address City/[facility]/Zipcode Phone Number [facility] DEPARTMENT OF PATHOLOGY [address] [place] [address] AND GENOMIC MEDICINE CBC with platelet and differential (05/17/2018 8:51 AM CDT)Only the most recent of4 resultswithin the time period is included. WBC 6.0 4.5 - 11.0 k/uL [facility] DEPARTMENT OF PATHOLOGY AND GENOMIC MEDICINE RBC 3.81 (L) 4.20 - 5.50 m/uL [facility] DEPARTMENT OF PATHOLOGY AND GENOMIC MEDICINE HGB 11.8 (L) 12.0 - 16.0 g/dL [facility] DEPARTMENT OF PATHOLOGY AND GENOMIC MEDICINE HCT 36.3 (L) 37.0 - 47.0 % [facility] DEPARTMENT OF PATHOLOGY AND GENOMIC MEDICINE MCV 95.3 82.0 - 100.0 fL [facility] DEPARTMENT OF PATHOLOGY AND GENOMIC MEDICINE MCH 31.0 27.0 - 34.0 pg [facility] DEPARTMENT OF PATHOLOGY AND GENOMIC MEDICINE MCHC 32.5 31.0 - 37.0 g/dL [facility] DEPARTMENT OF PATHOLOGY AND GENOMIC MEDICINE RDW - SD 42.5 37.0 - 55.0 fL [facility] DEPARTMENT OF PATHOLOGY AND GENOMIC MEDICINE MPV 10.6 6.9 - 11.0 fL [facility] DEPARTMENT OF PATHOLOGY AND GENOMIC MEDICINE Platelet count 307 150 - 400 K/uL [facility] DEPARTMENT OF PATHOLOGY AND GENOMIC MEDICINE Nucleated RBC 0.00 /100 WBC [facility] DEPARTMENT OF PATHOLOGY AND GENOMIC MEDICINE Neutrophils 63.1 39.0 - 69.0 % [facility] DEPARTMENT OF PATHOLOGY AND GENOMIC MEDICINE Lymphocytes 23.8 (L) 25.0 - 45.0 % [facility] DEPARTMENT OF PATHOLOGY AND GENOMIC MEDICINE Monocytes 7.8 0.0 - 10.0 % [facility] DEPARTMENT OF PATHOLOGY AND GENOMIC MEDICINE Eosinophils 3.8 0.0 - 5.0 % [facility] DEPARTMENT OF PATHOLOGY AND GENOMIC MEDICINE Basophils 1.3 (H) 0.0 - 1.0 % [facility] DEPARTMENT OF PATHOLOGY AND GENOMIC MEDICINE Immature granulocytes 0.2 0.0 - 1.0 % [facility] DEPARTMENT OF PATHOLOGY AND GENOMIC MEDICINE Specimen Blood Performing Organization Address City/[facility] Centercode Phone Number [place] [address] AND Relead [facility] Basic metabolic panel (05/17/2018 8:51 AM CDT)Only the most recent of3 resultswithin the time period is included. Sodium 143 135 - 148 mEq/L [facility] DEPARTMENT OF PATHOLOGY AND GENOMIC MEDICINE Potassium 4.1 3.5 - 5.0 mEq/L [facility] DEPARTMENT OF PATHOLOGY AND GENOMIC MEDICINE Chloride 107 98 - 112 mEq/L [facility] DEPARTMENT OF PATHOLOGY AND GENOMIC MEDICINE CO2 24 24 - 31 mEq/L [facility] DEPARTMENT OF PATHOLOGY AND GENOMIC MEDICINE Anion gap 12@ANIO 7 - 15 mEq/L [facility] DEPARTMENT OF PATHOLOGY AND GENOMIC MEDICINE BUN 17 8 - 23 mg/dL [facility] DEPARTMENT OF PATHOLOGY AND GENOMIC MEDICINE Creatinine 0.93 (H) 0.50 - 0.90 mg/dL [facility] DEPARTMENT OF PATHOLOGY AND GENOMIC MEDICINE Glucose 91 65 - 99 mg/dL [facility] DEPARTMENT OF PATHOLOGY AND GENOMIC MEDICINE Calcium 9.3 8.8 - 10.2 mg/dL [facility] DEPARTMENT OF PATHOLOGY AND GENOMIC MEDICINE Specimen Plasma specimen Performing Organization Address City/[facility] Cent[facility]ode Phone Number [facility] [place] [address] AND [employer] POC glucose (05/17/2018 8:50 AM CDT)Only the most recent of3 resultswithin the time period is included. POC glucose 99 65 - 99 mg/dL [facility] DEPARTMENT OF PATHOLOGY AND Comment: [employer] MEDICINE Meter ID: [id number] District Traffic Chief: Riley Ugalde Performing Organization Address City/State/Zipcode Phone Number [facility] DEPARTMENT OF PATHOLOGY [address] [place] [address] [place] [address] AND GENOMIC MEDICINE XR Lower Extremity External Study (04/27/2018 4:02 PM CDT)Only the most recent of2 resultswithin the time period is included. Narrative Performed At This exam was not acquired at a [facility] facility and has not been HM [facility] interpreted by a [facility] Provider.The exam was imported into our imaging system for comparisons purposes. Performing Organization Address [facility] Cent[facility] Phone Number [facility] [address] [place] [address] XR Upper Extremity External Study (04/27/2018 4:02 PM CDT)Only the most recent of2 resultswithin the time period is included. Narrative Performed At This exam was not acquired at a [facility] facility and has not been HM [facility] interpreted by a [facility] Provider.The exam was imported into our imaging system for comparisons purposes. Performing Organization Address [facility] Centerconh Phone Number [facility] [address] [place] [address] XR Wrist 3+ Vw Left (03/20/2018 10:27 AM CDT)Only the most recent of3 resultswithin the time period is included. Narrative Performed At PA, lateral, and oblique views of the left wrist demonstrate expected HM [facility] appearance after distal ulnar resection. No visible fractures. No evidence of distal ulnar instability. Performing Organization Address [facility] Phone Number [facility] [address] [place] [address] [place] > I Hour (12/28/2017 10:30 AM CDT) Narrative Performed At EXAMINATION:[place] 1 HOUR HM [facility] CLINICAL HISTORY:intraoperative IMPRESSION: Fluoroscopy was provided. No radiologist present.Please see procedure report for discussion of procedure, findings. [facility]-[id number] Procedure Note Hm Interface, Radiology Results Incoming - 12/28/2017 10:40 AM CDT EXAMINATION: [place] 1 HOUR CLINICAL HISTORY: intraoperative IMPRESSION: Fluoroscopy was provided. No radiologist present. Please see procedure report for discussion of procedure, findings. [facility]-[id number] Performing Organization Address [facility] Cent[facility]ode Phone Number [facility] [address] [place] [address] Estimated GFR (12/25/2017 11:50 AM CDT)Only the most recent of2 resultswithin the time period is included. GFR Non Af Amer 56 (A) mL/min/1.73 m2 [facility] DEPARTMENT OF PATHOLOGY AND GENOMIC MEDICINE GFR Af Amer 68 mL/min/1.73 m2 [facility] DEPARTMENT OF Comment: PATHOLOGY AND GENOMIC [...] Americans. Specimen Plasma specimen Performing Organization Address City/State/Zipcode Phone Number [facility] DEPARTMENT OF PATHOLOGY [address] [place] [address] AND [employer] ECG 12 lead (12/25/2017 10:42 AM CDT) Ventricular rate 69 [facility] MUSE Atrial rate [...] significant change was found- Performing Organization Address City/[facility]/Zipcode Phone Number [facility] [employer] [address] [place] [address] TING SCREEN W IFA W REFLEX TO TITER (11/27/2017 11:22 AM CDT) TING screen NEGATIVE NEGATIVE [facility] Comment: TING IFA is a first line screen for detecting the presence of up to approximately 150 autoantibodies in various autoimmune diseases. A negative TING IFA result suggests TING-associated autoimmune diseases are not present at this time. Visit Physician FAQs for interpretation of all antibodies in the [place], prevalence, and association with diseases at http://education.OneCard/ faq/TYV336 Narrative Performed At FASTING: UNKNOWN [facility]ing [facility] Comment Performing Organization Information: Site ID: [id number] Name: [facility] Address: [address] [place] [phone] Director: Dr. Jos Santana Performing Organization Address [facility] Phone Number [employer] [address] SSA/SSB antibody (11/27/2017 11:22 AM CDT) Sjogren's SS-A antibody <1.0 NEG <1.0 NEG [facility] Sjogren's SS-B antibody <1.0 NEG <1.0 NEG [facility] Narrative Performed At FASTING: UNKNOWN [facility] Comment Performing Organization Information: Site ID: [id number] Name: [facility] Address: [address] [place] [phone] Director: Dr. Jos Santana Performing Organization Address [facility] Phone Number [employer] [address] DNA Ab screen (11/27/2017 11:22 AM CDT) DNA ds antibody 1 IU/mL [facility] Comment: IU/mL Interpretation < or=4Negative 5-9 Indeterminate > or=10 Positive Narrative Performed At FASTING: UNKNOWN [facility] Comment Performing Organization Information: Site ID: [id number] Name: [facility] Address: [address] [place] [phone] Director: Dr. Jos Santana Performing Organization Address [facility] Phone Number [employer] [address] Cyclic citrullinated peptide antibody, IgG (11/27/2017 11:22 AM CDT) Cyclic citrullin peptide <16 UNITS [facility] Comment: II Reference Range Negative:<20 Weak Positive: 20-39 Moderate Positive: 40-59 Strong Positive: >59 Narrative Performed At FASTING: UNKNOWN [facility] Comment Performing Organization Information: Site ID: [id number] Name: [facility] Address: [address] [place] [address] Director: Dr. Jos Santana Performing Organization Address City/State/Zipcode Phone Number SERENA MACHADO[address] [address] Sedimentation rate (11/27/2017 11:22 AM CDT) Sedimentation rate 8 < OR=30 mm/h [facility] Narrative Performed At FASTING: UNKNOWN [facility] Comment Performing Organization Information: Site ID: RGA [facility]: [facility] Address: [address] [place] [phone] Director: Ju Rendon MD Performing Organization Address City/State/[facility] Cent[facility] Phone [place] [address] Rheumatoid factor (11/27/2017 11:22 AM CDT) Rheumatoid factor <14 <14 IU/mL [facility] [place] Narrative Performed At FASTING: UNKNOWN [facility] Comment Performing Organization Information: Site ID: RGA Name: [facility] Address: [address] [place] [phone] Director: Ju Rendon MD Performing Organization Address [facility] Phone Number [employer] [address] [address] C-reactive protein (11/27/2017 11:22 AM CDT) CRP 4.1 <8.0 mg/L [facility] [place] Narrative Performed At FASTING: UNKNOWN [facility] Comment Performing Organization Information: Site ID: RGA Name: [facility] Address: [address] [place] [phone] Director: Ju Rendon MD Performing Organization Address City/State/Zipcode Phone Number [employer] [address] [address] Uric acid level (11/27/2017 11:22 AM CDT) Uric acid 9.8 (H) 2.5 - 7.0 mg/dL [facility] Comment: Therapeutic target for gout patients: <6.0 mg/dL Narrative Performed At FASTING: UNKNOWN [facility] Comment Performing Organization Information: Site ID: RGA Name: [facility] Address: [address] [place] [phone] Director: Ju Rendon MD Performing Organization Address [facility] Phone Number [employer] [address] [address] Comprehensive metabolic panel (11/27/2017 11:22 AM CDT) Glucose 81 65 - 99 mg/dL [facility] Comment: [place] Fasting reference interval BUN, whole blood 30 (H) 7 - 25 mg/dL [facility] [place] Creatinine 0.99 0.50 - 0.99 [facility] Comment: mg/dL [place] For patients >49 years of age, the reference limit for Creatinine is approximately 13% higher for people identified as -Micronesian. EGFR Non-Afr. Micronesian 61 > OR=60 [facility] mL/min/1.73m2 [place] EGFR 71 > OR=60 [facility] mL/min/1.73m2 [place] BUN/creatinine ratio 30 (H) 6 - 22 (calc) [facility] [place] Sodium 144 135 - 146 mmol/L [facility] [place] Potassium 4.3 3.5 - 5.3 mmol/L [facility] [place] Chloride 106 98 - 110 mmol/L [facility] [place] CO2 27 20 - 31 mmol/L [facility] [place] Calcium 9.4 8.6 - 10.4 mg/dL [facility] [place] Protein 7.4 6.1 - 8.1 g/dL [facility] [place] Albumin, S 4.0 3.6 - 5.1 g/dL [facility] [place] Globulin, total 3.4 1.9 - 3.7 g/dL [facility] (calc) [place] Albumin/globulin ratio 1.2 1.0 - 2.5 (calc) [facility] [place] Total bilirubin 0.3 0.2 - 1.2 mg/dL [facility] [place] Alkaline phosphatase 88 33 - 130 U/L [facility] [place] AST 18 10 - 35 U/L [facility] [place] ALT 18 6 - 29 U/L [facility] [place] Narrative Performed At FASTING: UNKNOWN [facility] Resulting Agency Comment Performing Organization Information: Site ID: [id number] [facility] Address: [address] [place] [id number] Director: Ju Rendon MD Performing Organization Address City/State/[facility] Phone Number [employer] [address] [address] Medium Joint Arthrocentesis (11/24/2017 10:30 AM CDT) Narrative Performed At Bar Bazzi III, MD 11/24/2017 12:57 PM Medium Joint Arthrocentesis Supporting Documentation Indications: pain Procedure Details Preparation: Patient was prepped and draped in the usual sterile fashion Location: wrist - Wrist joint: left distal radioulnar joint. MRI Temporomandibular Joints (09/25/2017 11:05 AM [employer] ARCHITECT) Narrative Performed At EXAMINATION:MRI TEMPOROMANDIBULAR JOINTS HM [...] the right temporomandibular joint as detailed above. [id number] Procedure Note Hm Interface, Radiology Results Incoming - 09/25/2017 12:02 PM [employer] ARCHIT[employer] EXAMINATION: MRI TEMPOROMANDIBULAR JOINTS CLINICAL HISTORY: M26.623 [...] the right temporomandibular joint as detailed above. [id number] Performing Organization Address City/State/Zipcode Phone Number [facility] [address] [place] [address] after 07/15/2017 Insurance Payer Benefit Plan / Group Subscriber ID Type Phone Address MEDICARE MEDICARE PART A AND B xxxxxxxxxx Medicare [place], [place] MEDICAID MEDICAID xxxxxxxxx Medicaid ) [id number] [place] [address] Advance Directives Patient has advance care planning documents on file. For more information, please contact:Porfirio [place] [place] [address]
--- OUTSIDE RECORDS SUMMARY | 2018-07-16 17:29 | XMS REPORT | Clinical Summary ---
:1955 Author Organization Formerly [facility] Address [address] [place] [address] Care Team Providers Name Role Phone Boo [...] Genaro, ERCP Shaheen Randall MD 08/15/2017 [facility] Internal [facility], Epigastric pain (Primary Dx); - Encounter Medicine Shaheen Lam Other chronic pancreatitis (HCC); 08/19/2017 MD Tonia Essential hypertension; Obiicherholley, Dislocation of temporomandibular joint, initial encounter Heaven Hua MD after 07/15/2017 Immunizations Name Dates Previously Given Next Due [...] Taken Blood Pressure 108/70 08/19/2017 11:43 AM SAP SD ANALYST Pulse 81 08/19/2017 11:43 AM SAP SD ANALYST Temperature 36.7 C (98.1 F) 08/19/2017 11:43 AM SAP SD ANALYST Respiratory Rate 20 08/19/2017 11:43 AM SAP SD ANALYST Oxygen Saturation 97% 08/19/2017 11:43 AM SAP SD ANALYST Inhaled Oxygen Concentration - - Weight 64.3 kg (141 lb 12.8 oz) 08/15/2017 12:19 PM SAP SD ANALYST Height 160 cm (5' 3") 08/15/2017 12:19 PM SAP SD ANALYST Body Mass Index 25.12 08/15/2017 12:19 PM SAP SD ANALYST Plan of Treatment Not on file Procedures Procedure Name Priority Date/Time Associated Comments Diagnosis XR TEMPOROMANDIBULAR STAT 08/17/2017 4:56 Results for this JOINT BILATERAL PM [employer] SD ANALYST procedure are in the results section. SEDIMENTATION RATE Routine 08/17/2017 5:25 Results for this AM SAP SD ANALYST procedure are in the results section. XR TEMPOROMANDIBULAR STAT 08/16/2017 5:18 Results for this JOINT BILATERAL PM SAP SD ANALYST procedure are in the results section. ANTI-NUCLEAR ANTIBODY Routine 08/16/2017 12:07 Results for this (TING) PM SAP SD ANALYST procedure are in the results section. HEPATIC FUNCTION PANEL Routine 08/16/2017 6:12 Results for this AM SAP SD ANALYST procedure are in the results section. MAGNESIUM Routine 08/16/2017 6:12 Results for this AM SAP SD ANALYST procedure are in the results section. PHOSPHORUS Routine 08/16/2017 6:12 Results for this AM SAP SD ANALYST procedure are in the results section. BASIC METABOLIC PANEL (7) Routine 08/16/2017 6:12 Results for this AM SAP SD ANALYST procedure are in the results section. (MANUAL DIFFERENTIAL) Routine 08/16/2017 5:59 Results for this AM SAP SD ANALYST procedure are in the results section. CBC W/PLT COUNT & AUTO Routine 08/16/2017 5:59 Results for this DIFFERENTIAL AM SAP SD ANALYST procedure are in the results section. CBC W/PLT COUNT & AUTO Routine 08/16/2017 5:59 Results for this DIFFERENTIAL AM SAP SD ANALYST procedure are in the results section. REPORT OF PROCEDURE - 08/15/2017 2:43 ENDOSCOPY URL PM SAP SD ANALYST [place] ERCP Routine 08/15/2017 2:16 Results for this PM SAP SD ANALYST procedure are in the results section. PROCEDURE W/ C-ARM 08/15/2017 1:00 Biliary pain PM SAP SD ANALYST Special Needs (C-ARM) ERCP 08/15/2017 1:00 PM SAP SD ANALYST Biliary pain Special Needs (C-ARM) after 07/15/2017 Results XR temporomandibular joint bilateral (08/17/2017 4:56 PM SAP SD ANALYST)Only the most recent of2 resultswithin the time period is included. Narrative Performed At [facility] TECHNIQUE: Open and closed mouth views of both temporomandibular joints dated 08/17/2017. HISTORY: Status post reduction. COMPARISON: No mandibular radiographs dated 08/16/2017. IMPRESSION: There has been interval relocation of the right temporomandibular joint. Left temporal mandibular joint is unremarkable in appearance. No visualized fracture. Signed: Myriam Velez MD Report Verified Date/Time:08/17/2017 17:16:54 Reading Location: [facility] Radiology Reading Room Procedure Note Interface, External Ris In - 08/17/2017 5:19 PM SAP SD ANALYST FINAL REPORT TECHNIQUE: Open and closed mouth views of both temporomandibular joints dated 08/17/2017. HISTORY: Status post reduction. COMPARISON: No mandibular radiographs dated 08/16/2017. IMPRESSION: There has been interval relocation of the right temporomandibular joint. Left temporal mandibular joint is unremarkable in appearance. No visualized fracture. Signed: Myriam Velez MD Report Verified Date/Time: 08/17/2017 17:16:54 Reading Location: [facility] Radiology Reading Room Performing Organization Address City/[facility] Phone Number GE RIS Sedimentation rate (08/17/2017 5:25 AM SAP SD ANALYST) Sed Rate 51 (H) 0 - 30 mm/HR [facility] Specimen Blood Performing Organization Address [facility] Phone Number [address] [address] [phone] CENTER Anti-Nuclear Antibody (TING) (08/16/2017 12:07 PM SAP SD ANALYST) TING Negative Negative [facility] Specimen Blood Performing Organization Address [facility] Phone Number [address] [address] CENTER Phosphorus (08/16/2017 6:12 AM SAP SD ANALYST) Phosphorus 3.1 2.3 - 4.7 mg/dL [facility] Specimen Blood - Arm, Left Performing Organization Address [facility] Phone Number [address] [address] [phone] CENTER Magnesium (08/16/2017 6:12 AM SAP SD ANALYST) Magnesium 1.7 1.6 - 2.6 mg/dL [facility] Specimen Blood - Arm, Left Performing Organization Address [facility] Phone Number [facility] [address] [place] [address] [place] Hepatic function panel (08/16/2017 6:12 AM SAP SD ANALYST) Protein, Total 6.8 6.0 - 8.3 gm/dL [facility] Albumin 3.6 3.5 - 5.0 g/dL [facility] Total Bilirubin 0.5 0.2 - 1.2 mg/dL [facility] Bilirubin, Direct 0.2 0.1 - 0.5 mg/dL [facility] Alkaline Phosphatase 96 40 - 150 U/L [facility] AST 74 (H) 5 - 34 U/L [facility] ALT 38 6 - 55 U/L [facility] Specimen Blood - Arm, Left Performing Organization Address City/State/Zipcode Phone Number [facility] [address] [place] [address] [phone] [place] Basic metabolic panel (08/16/2017 6:12 AM SAP SD ANALYST) Sodium 144 136 - 145 meq/L [facility] Potassium 3.5 3.5 - 5.1 meq/L [facility] Chloride 111 (H) 98 - 107 meq/L [facility] CO2 24 22 - 29 meq/L [facility] BUN 14 7 - 21 mg/dL [facility] Creatinine 0.80 0.57 - 1.25 mg/dL [facility] Glucose 79 70 - 105 mg/dL [facility] Calcium 8.3 (L) 8.4 - 10.2 mg/dL [facility] EGFR 73Comment: ESTIMATED GFR IS mL/min/1.73 sq m [facility] NOT ACCURATE CREATININE [facility] CLEARANCE IN PREDICTING GLOMERULAR FILTRATION RATE. ESTIMATED GFR IS NOT APPLICABLE FOR DIALYSIS PATIENTS. Specimen Blood - Arm, Left Performing Organization Address [facility]/Zipcode Phone Number [facility] [address] [place] [address] [phone] CENTER Manual Differential (08/16/2017 5:59 AM SAP SD ANALYST) Total Counted [facility] WBC Morphology Normal [facility] Platelet Morphology Normal [facility] RBC Morphology Normal [facility] Specimen Blood - Arm, Left Performing Organization Address City/[facility]/Zipcode Phone Number [facility] [address] [place], [place] [phone] CENTER CBC with platelet count + automated diff (08/16/2017 5:59 AM SAP SD ANALYST) WBC 8.8 3.5 - 10.5 K/L [facility] RBC 3.72 (L) 3.93 - 5.22 M/L [facility] Hemoglobin 11.7 11.2 - 15.7 GM/DL [facility] Hematocrit 37.9 34.1 - 44.9 % [facility] MCV 101.9 (H) 79.4 - 94.8 fL [facility] MCH 31.5 25.6 - 32.2 pg [facility] MCHC 30.9 (L) 32.2 - 35.5 GM/DL [facility] RDW 12.9 11.7 - 14.4 % [facility] Platelets 181 150 - 450 K/CU MM [facility] MPV 11.1 9.4 - 12.3 fL [facility] nRBC 0 0 - 0 /100 WBC [facility] % Neutros 75 % [facility] % Lymphs 16 % [facility] % Monos 6 % [facility] % Eos 2 % [facility] % Baso 1 % [facility] # Neutros 6.58 (H) 1.56 - 6.13 K/L [facility] # Lymphs 1.38 1.18 - 3.74 K/L [facility] # Monos 0.54 (H) 0.24 - 0.36 K/L [facility] # Eos 0.18 0.04 - 0.36 K/L [facility] # Baso 0.06 0.01 - 0.08 K/L [facility] Immature 0 0 - 1 % [facility] Specimen Blood - Arm, Left Performing Organization Address City/State/Zipcode Phone Number [facility] [address] [place] [address] CENTER REPORT OF PROCEDURE - ENDOSCOPY URL (08/15/2017 2:43 PM SAP SD ANALYST) Narrative Performed At [place] Endoscopic Retrograde Cholangiopancreatography (08/15/2017 2:16 PM SAP SD ANALYST) Narrative Performed At [facility] ERCP. CLINICAL HISTORY: dilated ducts. COMPARISON [...] MD Report Verified Date/Time:08/15/2017 16:10:57 Reading Location: [address] Radiology Reading Room Procedure Note Interface, External Ris In - 08/15/2017 4:13 PM SAP SD ANALYST FINAL REPORT ERCP. CLINICAL HISTORY: dilated ducts. [...] Report Verified Date/Time: 08/15/2017 16:10:57 Reading Location: [address] Radiology Reading Room Performing Organization Address City/State/Zipcode Phone Number GE RIS after 07/15/2017 Insurance Payer Benefit Plan / Group Subscriber ID Type Phone Address MEDICARE MEDICARE A B xxxxxxxxxx Medicare Advance Directives For more information, please contact:[address] [phone] Code Status Date Activated Date Inactivated Comments Full Code 08/15/2017 8:14 PM 08/19/2017 4:37 PM This code status was determined by: Patient
--- OUTSIDE RECORDS SUMMARY | 2018-07-16 17:29 | XMS REPORT ---
:1955 [facility] Address [address] [place] [address] Care Team Providers Name Role Phone ZABRINA STALLWORTH Unavailable Unavailable Problems This patient has no known problems. Allergies, Adverse Reactions, Alerts This patient has no known allergies or adverse reactions. Medications This patient has no known medications. Results Test Description Test Time Test Comments Text Results Atomic Results Result Comments RAD, TEMPOROMANDIBULAR 2017-08-17 Reason for FINAL REPORT PATIENT ID: JOINT, BILATERAL 17:16:00 exam:->s/p [id number] TECHNIQUE: reduction Open and closed mouth views of both temporomandibular joints dated 08/17/2017. HISTORY: Status post reduction. COMPARISON: No mandibular radiographs dated 08/16/2017. IMPRESSION:There has been interval relocation of the right temporomandibular joint. Left temporal mandibular joint is unremarkable in appearance. No visualized fracture. Signed: Myriam Velez MDReport Verified Date/Time: 08/17/2017 17:16:54 Reading Location: [facility] Radiology Reading Room -NUCLEAR ANTIBODY (TING) 2017-08-17 14:15:00 Test Item Value Reference Range Comments ANTI-NUCLEAR ANTIBODY (TING) (BEAKER) (test icwa=088) Negative Negative SEDIMENTATION [id number] 09:30:00 Test Item Value Reference Range Comments SEDIMENTATION RATE, ERYTHROCYTE (BEAKER) (test 51 mm/HR 0-30 qwfx=900) RAD, TEMPOROMANDIBULAR JOINT, [id number] 18:19:00Reason for exam:-> lock jawFINAL REPORT TECHNIQUE: [...] MDReport Verified Date/Time: 08/16/2017 18:19:33 Reading Location: [address] Consult Reading Room Electronically signed by: TERRI CHIRINOS MD on 2016 06:19 PMCBC W/PLT COUNT & AUTO [id number] 11:27:00 Test Item Value Reference Range Comments WHITE BLOOD CELL COUNT (BEAKER) (test xpiu=496) 8.8 K/ L 3.5-10.5 RED BLOOD CELL COUNT (BEAKER) (test ammq=218) 3.72 M/ L 3.93-5.22 HEMOGLOBIN (BEAKER) (test wqpl=356) 11.7 GM/DL 11.2-15.7 HEMATOCRIT (BEAKER) (test xsuv=611) 37.9 % 34.1-44.9 MEAN CORPUSCULAR VOLUME (BEAKER) (test jxza=181) 101.9 fL 79.4-94.8 MEAN CORPUSCULAR HEMOGLOBIN (BEAKER) (test 31.5 pg 25.6-32.2 vzlp=507) MEAN CORPUSCULAR HEMOGLOBIN CONC (BEAKER) (test 30.9 GM/DL 32.2-35.5 fshc=617) RED CELL DISTRIBUTION WIDTH (BEAKER) (test 12.9 % 11.7-14.4 ssut=124) PLATELET COUNT (BEAKER) (test wbhj=700) 181 K/CU MM 150-450 MEAN PLATELET VOLUME (BEAKER) (test winq=017) 11.1 fL 9.4-12.3 NUCLEATED RED BLOOD CELLS (BEAKER) (test 0 /100 WBC 0-0 bcln=947) NEUTROPHILS RELATIVE PERCENT (BEAKER) (test 75 % soyu=465) LYMPHOCYTES RELATIVE PERCENT (BEAKER) (test 16 % belp=379) MONOCYTES RELATIVE PERCENT (BEAKER) (test 6 % nawo=646) EOSINOPHILS RELATIVE PERCENT (BEAKER) (test 2 % dqvl=860) BASOPHILS RELATIVE PERCENT (BEAKER) (test 1 % xwwn=960) NEUTROPHILS ABSOLUTE COUNT (BEAKER) (test 6.58 K/ L 1.56-6.13 jaon=491) LYMPHOCYTES ABSOLUTE COUNT (BEAKER) (test 1.38 K/ L 1.18-3.74 jcrs=004) MONOCYTES ABSOLUTE COUNT (BEAKER) (test 0.54 K/ L 0.24-0.36 ylqw=219) EOSINOPHILS ABSOLUTE COUNT (BEAKER) (test 0.18 K/ L 0.04-0.36 lobq=857) BASOPHILS ABSOLUTE COUNT (BEAKER) (test 0.06 K/ L 0.01-0.08 grnj=832) IMMATURE GRANULOCYTES-RELATIVE PERCENT (BEAKER) 0 % 0-1 (test bjhs=9228) (MANUAL DIFFERENTIAL)2017-08-16 11:27:00 Test Item Value Reference Range Comments TOTAL COUNTED (BEAKER) (test oljs=2386) WBC MORPHOLOGY (BEAKER) (test dtcs=378) Normal PLT MORPHOLOGY (BEAKER) (test egny=984) Normal RBC MORPHOLOGY (BEAKER) (test ljxx=403) Normal [id number] 07:47:00 Test Item Value Reference Range Comments PHOSPHORUS (BEAKER) (test ctyz=541) 3.1 mg/dL 2.3-4.7 [id number] 07:47:00 Test Item Value Reference Range Comments MAGNESIUM (BEAKER) (test twtf=547) 1.7 mg/dL 1.6-2.6 BASIC METABOLIC [id number] 07:47:00 Test Item Value Reference Range Comments SODIUM (BEAKER) (test 144 meq/L 136-145 xizm=775) POTASSIUM (BEAKER) (test 3.5 meq/L 3.5-5.1 ubhe=726) CHLORIDE (BEAKER) (test 111 meq/L 98-107 snnz=374) CO2 (BEAKER) (test 24 meq/L 22-29 udcj=527) BLOOD UREA NITROGEN 14 mg/dL 7-21 (BEAKER) (test sfvt=313) CREATININE (BEAKER) (test 0.80 mg/dL 0.57-1.25 fdiy=712) GLUCOSE RANDOM (BEAKER) 79 mg/dL 70-105 (test vwct=329) CALCIUM (BEAKER) (test 8.3 mg/dL 8.4-10.2 qvps=151) EGFR (BEAKER) (test 73 mL/min/1.73 sq m ESTIMATED GFR IS NOT ypzc=1479) ACCURATE CREATININE CLEARANCE IN PREDICTING GLOMERULAR FILTRATION RATE. ESTIMATED GFR IS NOT APPLICABLE FOR DIALYSIS PATIENTS. HEPATIC FUNCTION [id number] 07:47:00 Test Item Value Reference Range Comments TOTAL PROTEIN (BEAKER) (test zwem=436) 6.8 gm/dL 6.0-8.3 ALBUMIN (BEAKER) (test tmxl=0798) 3.6 g/dL 3.5-5.0 BILIRUBIN TOTAL (BEAKER) (test rlrf=133) 0.5 mg/dL 0.2-1.2 BILIRUBIN DIRECT (BEAKER) (test eqrm=282) 0.2 mg/dL 0.1-0.5 ALKALINE PHOSPHATASE (BEAKER) (test mtbl=289) 96 U/L 40-150 AST (SGOT) (BEAKER) (test hlla=334) 74 U/L 5-34 ALT (SGPT) (BEAKER) (test ovrh=754) 38 U/L 6-55 FL, [id number] 16:10:00Reason for exam:->dilated ductsFINAL REPORT ERCP. CLINICAL [...] [place] Verified Date/Time: 08/15/2017 16:10:57 Reading Location: [address] Radiology Reading Room [id number] 13:55:00 Test Item Value Reference Range Comments POC-POTASSIUM (BEAKER) (test 3.9 meq/L 3.6-5.5 TESTED AT [facility] [address] [facility] udle=[id number]) [facility] [address]
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
--- NOTE | 2018-07-16 18:27 | RAD REPORT ---
EXAM DESCRIPTION: Kaity Single View07/16/2018 6:11 pm CLINICAL HISTORY: Chest pain COMPARISON: July 13, 2018 FINDINGS: The lungs appear clear of acute infiltrate. The heart is normal size IMPRESSION: No acute abnormalities displayed
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
[2018-07-16 20:13] LABS: Urine Glucose NEGATIVE (NEG)
[2018-07-16 20:14] LABS: Urine Blood 2+ (NEG); Urine Protein 1+ (NEG)
[2018-07-16 20:35] VITALS: O2SAT 99
[2018-07-16 20:36] VITALS: BP 164/93; TEMP 98
== END 2018-07-16 20:04 | disposition home or self-care (01) ==
LOC: ER 17:25
DX: S16.1XXA Strain of muscle, fascia and tendon at neck level, initial encounter (principal); V49.40XA Driver injured in collision with unspecified motor vehicles in traffic accident, initial encounter; M25.511 Pain in right shoulder; I10 Essential (primary) hypertension; K21.9 Gastro-esophageal reflux disease without esophagitis; Z79.899 Other long term (current) drug therapy
CPT/HCPCS: 70450; 71045; 72125; 81003; 99284

== ENCOUNTER 2019-04-09 01:14 | Emergency (ER) | payer OTHER ==
--- OUTSIDE RECORDS SUMMARY | 2019-04-09 01:16 | XMS REPORT | Clinical Summary ---
:1955 Author Organization [facility] Address [address] [place] [address] Care Team Providers Name Role Phone Eliu Newton MD Primary Care Provider Allergies Active Allergy Reactions Severity Noted Date Comments Aspirin GI Intolerance Medium 09/14/2017 Pass out too Tramadol Itching Low 05/17/2018 Medications Medication Sig Dispensed Refills Start Date End Date Status HYDROcodone-acetamin TAKE ONE (1) 0 11/06/2017 Active [...] Active 25 MG tablet mouth as needed. losartan (COZAAR) Take 1 tablet by 5 04/23/2018 Active 100 MG tablet mouth every morning. amLODIPine (NORVASC) TAKE ONE (1) 4 10/23/2018 Active 5 mg tablet TABLET(S) BY MOUTH ONCE A DAY. potassium chloride TAKE ONE (1) 1 08/22/2018 Active (KLOR-CON) 10 MEQ CR TABLET(S) BY tablet MOUTH ONCE A DAY. cetirizine (ZyrTEC) Take 5 mg by 0 Active 5 MG tablet mouth daily. dexlansoprazole Take 60 mg by 0 11/10/19 Discontinued (DEXILANT) 60 mg mouth daily. 19 capsule valsartan (DIOVAN) Take 160 mg by 0 05/17/20 Discontinued 160 MG tablet mouth daily. 18 potassium chloride Take 10 mEq by 0 05/17/20 Discontinued (K-DUR,KLOR-CON) 10 mouth 2 (two) 18 MEQ CR tablet times a day. amLODIPine (NORVASC) Take 5 mg by 0 05/17/20 Discontinued 5 mg tablet mouth daily. 18 HYDROcodone-acetamin as needed for 0 01/30/2018 05/17/20 Discontinued ophen (NORCO) 10-325 Pain. 18 mg per tablet lamoTRIgine Take 2 tablets 0 11/10/19 Discontinued (LaMICtal) 100 MG by mouth every 19 tablet morning. montelukast Take 1 tablet by 0 11/10/19 Discontinued (SINGULAIR) 10 mg mouth as needed. 19 tablet ranitidine (ZANTAC) Take 1 tablet by 0 11/10/19 Discontinued 150 MG tablet mouth daily. 19 HYDROcodone-acetamin Take 1-2 tablets 60 tablet 0 05/17/2018 07/16/20 ophen (NORCO) 10-325 by mouth every 6 18 mg per (six) hours as tabletIndications: needed for Other closed severe pain for intra-articular up to 60 days. fracture of distal Must last 2 end of right radius, weeks Max Daily initial encounter Amount: 8 tablets HYDROcodone-acetamin hydrocodone 10 mg-acetaminophen 325 mg tablet 0 04/23 Discontinued ophen (NORCO) 10-325 Take 1 tablet 4 times a day by oral route for 30 days. 19 mg per tablet Active Problems No known active problems Resolved Problems Problem Noted Date Resolved Date Closed -punch intra-articular fracture of distal end of 05/15/20182017 right radius Overview: Added automatically from request for surgery [id number] Encounters Date Type Specialty Care Team Description 03/06/2019 Hospital Encounter Radiology Keven Barry MD 03/06/2019 Office Visit Orthopedic Surgery Keven Barry Other spondylosis with radiculopathy, lumbar region (Primary Dx); MD Malcolm Chronic bilateral low back pain with bilateral sciatica; Other secondary scoliosis, lumbar region 11/12/2018 Anesthesia Event General Surgery Anjelica Pérez FNP 11/12/2018 Surgery General Surgery Tacos Torres INTERLAMINAR LUMBAR MD Karin MEHRDAD BILATERAL L4-5 SEGMENT 11/12/2018 Hospital Encounter General Surgery Tacos Torres MD 11/09/2018 Pre-Admit Testing Pre-Admission Tacos Torres Preop testing Appointment Gerry Frazier MD (Primary Dx) 10/12/2018 Office Visit Orthopedic Surgery Bar Bazzi Calcific tendinitis Cal MARINELLI MD of right shoulder (Primary Dx) 08/21/2018 Office Visit Orthopedic Surgery Bar Bazzi Calcific tendinitis (Primary Dx); Cal MARINELLI MD Acute pain of right shoulder 07/20/2018 Office Visit Orthopedic Surgery Bar Bazzi Closed intra- articular -punch fracture of right radius with routine healing, subsequent encounter (Primary Dx); Cal MARINELLI MD Post-operative state 06/11/2018 Procedure visit Neurology Jax Rico MD [...] 05/17/2018 Anesthesia Event General Surgery Anjelica Pérez, JANNET 05/17/2018 Surgery General Surgery Bar Bazzi RIGHT ORIF R (OPEN Cal MARINELLI MD REDUCTION INTERNAL FIXATION RIGHT) DISTAL RADIUS FX (FRACTURE) (INTRA-ARTICULAR) 05/17/2018 Hospital Encounter General Surgery Bar Bazzi III, MD 05/15/2018 Hospital Encounter Radiology Bar Bazzi III, MD 05/15/2018 Hospital Encounter Radiology Bar Bazzi III, MD 05/15/2018 Office Visit Orthopedic Surgery Bar Bazzi closed intra-articular fracture of distal end of right radius, initial encounter ( Primary Dx); Cal MARINELLI MD Closed displaced fracture of fifth metatarsal bone of left foot, initial encounter; Injury of right wrist, initial encounter 05/15/2018 Transcribe Orders Orthopedic Surgery Bar Bazzi Closed Cal MARINELLI MD intra-articular -punch fracture of right radius, initial encounter (Primary Dx) 05/04/2018 Hospital Encounter Radiology Taye Hunt II, MD 05/04/2018 Hospital Encounter Radiology Taye Hunt II, MD 05/04/2018 Office Visit Orthopedic Surgery Taye Hunt Displaced fracture of MD RACHEL fifth metatarsal bone, left foot, initial encounter for closed fracture (Primary Dx) 04/16/2018 Office Visit Orthopedic Surgery Taye Nava Complete tear of left MD Daquan rotator cuff (Primary Dx) after 04/08/2018 Family History Medical History Relation Name Comments Heart attack Father Lan Heart disease Father Lan Hypertension Father Lan Heart disease Mother Kay Thyroid cancer Mother Kay Relation Name Status Comments Father Lan Mother Kay Social History Tobacco Use Types Packs/Day Years Used Date Never Smoker 0 0 Smokeless Tobacco: Never Used Alcohol Use Drinks/Week oz/Week Comments No Sex Assigned at Date Recorded Not on file Job Start Date Occupation Industry Not on file Not on file Not on file Travel History Travel Start Travel End No recent travel history available. Last Filed Vital Signs Vital Sign Reading Time Taken Blood Pressure 107/66 11/12/2018 11:42 AM CDT Pulse 81 11/12/2018 11:42 AM CDT Temperature 36.4 C (97.5 F) 11/12/2018 11:42 AM CDT Respiratory Rate 21 11/12/2018 11:42 AM CDT Oxygen Saturation 95% 11/12/2018 11:42 AM CDT Inhaled Oxygen Concentration - - Weight 68 kg (150 lb) 03/06/2019 11:41 AM CDT Height 160 cm (5' 3") 03/06/2019 11:41 AM CDT Body Mass Index 26.57 03/06/2019 11:41 AM CDT Plan of Treatment Health Maintenance Due Date Last Done Comments BREAST CANCER SCREENING 2006 COLONOSCOPY SCREENING 2006 SHINGLES VACCINES (#1) 2006 INFLUENZA VACCINE 04/04/2019 10/10/2007 Implants Implanted Type Area Counter Tender Device Shelf Model / Identifier Expiration Serial / Date Lot Screw, Polyaxial Non Locking, 3.5mm X 11mm, Ti, Virgen - [id number] [facility] IMPLANT Right: SKELETAL PANL [id number] TS / Implanted: Qty: 1 on 05/17/2018 by Bar Bazzi III, MD DEVICES Wrist DYNAMICS / VENDOR LOT NA K-Wire, Standard Tip, 1.5mm X 127mm - [id number] [id number] IMPLANT Right: SKELETAL KWIR STD [id number] / Implanted: Qty: 3 on 05/17/2018 by Bar Bazzi III, MD DEVICES Wrist DYNAMICS / VENDOR LOT NA Narrow Heads, 3 Hole Shaft, Right, Virgen Fossa Plate - [id number] [id number] IMPLANT Right: SKELETAL GMN RTN 3HL / Implanted: Qty: 1 on 05/17/2018 by Bar Bazzi III, MD DEVICES Wrist DYNAMICS / VENDOR LOT NA Threaded Peg, Locking, 2.3x17mm - [id number] [id number] IMPLANT Right: SKELETAL TPLS [id number] TS / Implanted: Qty: 1 on 05/17/2018 by Bar Bazzi III, MD DEVICES Wrist DYNAMICS / VENDOR LOT NA Fully Threaded Peg, Locking, 2.3mm X 19mm, Ti - [id number] [id number] IMPLANT Right : SKELETAL TPLS [id number] TS / Implanted: Qty: 3 on 05/17/2018 by Bar Bazzi III, MD DEVICES Wrist DYNAMICS / VENDOR LOT NA Fully Threaded Peg, Locking, 2.3mm X 20mm, Ti - [id number] [id number] IMPLANT Right : SKELETAL TPLS [id number] TS / Implanted: Qty: 1 on 05/17/2018 by Bar Bazzi III, MD DEVICES Wrist DYNAMICS / VENDOR LOT NA Screw, Cortical Locking, 3.5mm X 11mm, Ti - [id number] [id number] IMPLANT Right: SKELETAL COLS [id number] TS / Implanted: Qty: 1 on 05/17/2018 by Bar Bazzi III, MD DEVICES Wrist DYNAMICS / VENDOR LOT NA Screw, Polyaxial Non Locking, 3.5mm X 10mm, Ti, Virgen - [id number] IMPLANT Right: SKELETAL PANL [id number] TS / Implanted: Qty: 1 on 05/17/2018 by Bar Bazzi III, MD DEVICES Wrist DYNAMICS / VENDOR LOT NA [place] S[place] Pushlock Kntls Peek 4.5x24mm - [id number] Orthopedic Left: [employer] 03/03/2022 AR 1922PS / Implanted: 09/27/2017 (Quantity not on file) Trauma Shoulder / Implants [id number] [place] S[place] Pushlock Kntls Peek 4.5x24mm - [id number] Orthopedic Left: [employer] 03/03/2022 AR 1922PS / Implanted: 09/27/2017 (Quantity not on file) Trauma Shoulder / Implants [id number] [place] Sut Healix Knotless Br Biocmpst W/ Orthocord 5.5mm - [id number] Orthopedic Left: [employer]PUY [employer]ITEK 05/04/2020 [id number] / Implanted: 09/27/2017 (Quantity not on file) Trauma Shoulder / Implants [id number] Procedures Procedure Name Priority Date/Time Associated Comments Diagnosis XR LUMBAR SPINE Routine 03/06/2019 9:56 Low back pain, Results for this COMPLETE W BENDING AM CDT unspecified back procedure are in pain laterality, the results unspecified section. chronicity, with sciatica presence unspecified [place] < 1 HOUR Routine 11/12/2018 11:05 Results for this AM CDT procedure are in the results section. ECG PRE/POST OP Routine 11/09/2018 11:06 Preop testing Results for this AM OIL RIG ROUGHNECK procedure are in the results section. XR CERVICAL SPINE Routine 10/12/2018 11:09 Neck pain Results for this COMPLETE AM OIL RIG ROUGHNECK procedure are in the results section. OK ARTHROCENTESIS Routine 10/12/2018 10:30 Calcific tendinitis Results for this ASPIR&/INJ MAJOR AM OIL RIG ROUGHNECK of right shoulder procedure are in JT/BURSA W/O US the results section. XR SHOULDER 2+ VW RIGHT Routine 08/21/2018 10:42 Acute pain of right Results for this AM OIL RIG ROUGHNECK shoulder procedure are in the results section. OK ARTHROCENTESIS Routine 08/21/2018 10:30 Calcific tendinitis Results for this ASPIR&/INJ MAJOR AM OIL RIG ROUGHNECK procedure are in JT/BURSA W/O US the results section. XR WRIST 3+ VW RIGHT Routine 07/20/2018 11:30 Right wrist pain Results for this AM OIL RIG ROUGHNECK procedure are in the results section. EMG Routine 06/11/2018 XR WRIST 3+ VW [...] CDT procedure are in the results section. OK AN ELECTIVE Routine 05/17/2018 10:12 SUPRAGLOTTIC AIRWAY AM CDT Procedure Note - Rolando Kumar CRNA - 05/17/2018 10:12 AM CDT Airway Date/Time: 05/17/2018 10:03 AM Performed by: ROLANDO KUMAR Authorized by: SIMON SANTAMARIA Location: OR Urgency: Elective Anesthesiologist: SIMON SANTAMARIA Resident/ATHLETE MARKETING AGENT/AA: ROLANDO KUMAR Performed by: resident/ATHLETE MARKETING AGENT/AA Preoxygenated with 100% O2: Yes C-spine Precautions Maintained Throughout: Yes Mask Ventilation: Not attempted Final Airway Type: Supraglottic airway Final LMA: Unique LMA Size: 4 Number of Attempts at Approach: 1 Atraumatic LMA insertion; lips/teeth/gums unchanged. OK AN PERIPHERAL BLOCK POST-OP PAIN Routine 05/17/2018 [...] are in the results section. BASIC METABOLIC Routine 05/17/2018 8:51 AM Results for this PANEL CDT procedure are in the results section. HC COMPLETE BLD Routine 05/17/2018 8:51 AM Results for this COUNT W/AUTO DIFF CDT procedure are in the results section. POC GLUCOSE Routine 05/17/2018 8:50 AM Results for this CDT procedure are in the results section. XR WRIST 3+ VW Routine 05/15/2018 2:58 PM Injury of right Results for this RIGHT CDT wrist, initial procedure are in encounter [...] CDT procedure are in the results section. after 04/08/2018 Results XR Lumbar Spine Complete W Flex and Ext (03/06/2019 9:56 AM CDT) Specimen Narrative Performed At 7 views of the lumbar spine are reviewed.Patient stands with a slightly HM RADIANT asymmetric pelvis with the right being shorter than the left.There is a concomitant lateral curvature of the lumbar spine with rotation centered about L2-L3.Overall coronal balance appears satisfactory.Lateral view demonstrates satisfactory sagittal balance.There is disc space narrowing consistent with degeneration throughout the lumbar spine.There is mild anterior osteophyte formation.Flexion-extension views do not demonstrate evidence of instability.Oblique views demonstrate facet joint osteoarthritis principally at L4-L5.There are no signs of acute or chronic fracture Performing Organization Address [facility]/Zipcode Phone Number RADIANT [address] [place] [address] [place] < 1 Hour (11/12/2018 11:05 AM CDT)Only the most recent of2 resultswithin the time period is included. Specimen Narrative Performed At [place] 1 HOUR RADIANT CLINICAL HISTORY: IMPRESSION: Fluoroscopy was provided. No radiologist present.Please see procedure report for discussion of procedure, findings and fluoroscopic time. [facility]-[id number] Procedure Note Hm Interface, Radiology Results Incoming - 11/12/2018 12:08 PM CDT [place] 1 HOUR CLINICAL HISTORY: IMPRESSION: Fluoroscopy was provided. No radiologist present. Please see procedure report for discussion of procedure, findings and fluoroscopic time. [facility]-[id number] Performing Organization Address [facility] Phone Number [facility] [address] [place] [address] ECG Pre/Post Op (11/09/2018 11:06 AM OIL RIG ROUGHNECK) Ventricular rate 74 [facility] Atrial rate 74 [facility] M[facility] OK interval 182 [facility] QRSD interval 82 [facility] QT interval 364 [facility] QTC interval 404 [facility] P axis 1 53 [facility] QRS axis 1 18 [facility] T wave axis 73 [facility] EKG impression Normal sinus [facility] MUSE rhythm-Nonspecific ST and T wave abnormality-Abnormal ECG-In automated comparison with ECG of 25-DEC-2017 10:42,-No significant change was found- Specimen Narrative Performed At Performing Organization Address [facility]/Zipcode Phone Number [facility] MUSE [address] [place] [address] XR Cervical Spine Complete (10/12/2018 11:09 AM OIL RIG ROUGHNECK) Specimen Narrative Performed At AP, lateral, and oblique views of the cervical spine demonstrate ACDF from RADIANT C5-C7.No significant adjacent segment degeneration.No fractures. Performing Organization Address [facility]/Zipcode Phone Number RADIANT [address] [place] [address] Large Joint Arthrocentesis: shoulder, R subacromial bursa (10/12/2018 10:30 AM OIL RIG ROUGHNECK) Narrative Performed At Bar Bazzi III, MD 10/12/20183:48 PM Large Joint Arthrocentesis: shoulder, R subacromial bursa Consent given by: patient Supporting Documentation Indications: pain Procedure Details Preparation: Patient was prepped and draped in the usual sterile fashion Location: shoulder - R subacromial bursa Right side: Needle size: 22 G Approach: posterior Right shoulder medications administered: 40 mg methylPREDNISolone acetate 40 mg/mL; 3 mL lidocaine 10 mg/mL (1 %) Patient tolerance: patient tolerated the procedure well with no immediate complications XR Shoulder 2+ Vw Right (08/21/2018 10:42 AM OIL RIG ROUGHNECK) Specimen Narrative Performed At AP, scapular Y, and axillary lateral views of the right shoulder RADIANT demonstrate soft tissue calcification within the subacromial space. Glenohumeral joint is concentrically reduced.No fractures.No arthritic changes. Performing Organization Address [facility]/[email or web address] Phone Number [facility] [address] [place] [address] Large Joint Arthrocentesis: shoulder, R subacromial bursa (08/21/2018 10:30 AM OIL RIG ROUGHNECK) Narrative Performed At Bar Bazzi III, MD 08/21/20181:12 PM Large Joint Arthrocentesis: shoulder, R subacromial bursa Consent given by: patient Supporting Documentation Indications: pain Procedure Details Preparation: Patient was prepped and draped in the usual sterile fashion Location: shoulder - R subacromial bursa Right side: Needle size: 22 G Approach: lateral Right shoulder medications administered: 40 mg methylPREDNISolone acetate 40 mg/mL; 3 mL lidocaine 10 mg/mL (1 %) Patient tolerance: patient tolerated the procedure well with no immediate complications XR Wrist 3+ Vw Right (07/20/2018 11:30 AM OIL RIG ROUGHNECK)Only the most recent of3 resultswithin the time period is included. Specimen Narrative Performed At PA, oblique and lateral x-ray of right wrist.Hardware in place with RADIANT fracture healing compared to previous imaging.No soft tissue abnormalities. Performing Organization Address City/[email or web address] Phone Number [facility] [address] [place] [address] EMG General Request (06/11/2018) Narrative Performed At XR Foot 3+ Vw Left (06/01/2018 10:50 AM CDT) Specimen Narrative Performed At Three-view images of the left foot reveals evidence of a healing HM [facility]IANT shortened, angulated, and displaced middle third long oblique fifth metatarsal fracture. Bones are otherwise well mineralized. Performing Organization Address City/State/Zipcode Phone Number [facility] [address] [place] [address] Estimated GFR (05/17/2018 8:51 AM CDT) Estimated GFR 66 mL/min/1.73 [facility] DEPARTMENT Comment: m2 OF PATHOLOGY AND CatergoryUnitsInterpretation GENOMIC MEDICINE G1 >=90 Normal or high G2 60-89Mildly decreased H2m65-30Bmqxvr to moderately decreased H0t30-09Yadgnetzzv to severely decreased G4 15-29Severely decreased G5 <15Kidney failure The eGFR was calculated using the Chronic Kidney Disease Epidemiology Collaboration (CKD-EPI) equation. Interpretation is based on recommendations of the National Kidney Foundation-Kidney Disease Outcomes Quality Initiative (NKF-KDOQI) published in 2014. Specimen Plasma specimen Performing Organization Address City/State/Zipcode Phone Number [facility] DEPARTMENT OF PATHOLOGY [address] [place] [address] AND GENOMIC MEDICINE CBC with platelet and differential (05/17/2018 8:51 AM CDT) WBC 6.0 4.5 - 11.0 k/uL [facility] DEPARTMENT OF PATHOLOGY AND GENOMIC MEDICINE RBC 3.81 (L) 4.20 - 5.50 [facility] DEPARTMENT OF m/uL PATHOLOGY AND GENOMIC MEDICINE HGB 11.8 (L) 12.0 - 16.0 [facility] DEPARTMENT OF g/dL PATHOLOGY AND GENOMIC MEDICINE HCT 36.3 (L) 37.0 - 47.0 % [facility] DEPARTMENT OF PATHOLOGY AND GENOMIC MEDICINE MCV 95.3 82.0 - 100.0 fL [facility] DEPARTMENT OF PATHOLOGY AND GENOMIC MEDICINE MCH 31.0 27.0 - 34.0 pg [facility] DEPARTMENT OF PATHOLOGY AND GENOMIC MEDICINE MCHC 32.5 31.0 - 37.0 [facility] DEPARTMENT OF g/dL PATHOLOGY AND GENOMIC MEDICINE RDW - SD 42.5 37.0 - 55.0 fL [facility] DEPARTMENT OF PATHOLOGY AND GENOMIC MEDICINE MPV 10.6 6.9 - 11.0 fL [facility] DEPARTMENT OF PATHOLOGY AND GENOMIC MEDICINE Platelet count 307 150 - 400 K/uL [facility] DEPARTMENT OF PATHOLOGY AND GENOMIC MEDICINE Nucleated RBC 0.00 /100 WBC [facility] DEPARTMENT OF PATHOLOGY AND GENOMIC MEDICINE Neutrophils 63.1 39.0 - 69.0 % [facility] DEPARTMENT OF PATHOLOGY AND GENOMIC MEDICINE Lymphocytes 23.8 (L) 25.0 - 45.0 % [facility] DEPARTMENT OF PATHOLOGY AND GENOMIC MEDICINE Monocytes 7.8 0.0 - 10.0 % [facility] DEPARTMENT OF PATHOLOGY AND GENOMIC MEDICINE Eosinophils 3.8 0.0 - 5.0 % [facility] DEPARTMENT OF PATHOLOGY AND GENOMIC MEDICINE Basophils 1.3 (H) 0.0 - 1.0 % [facility] DEPARTMENT OF PATHOLOGY AND GENOMIC MEDICINE Immature granulocytes 0.2 0.0 - 1.0 % [facility] DEPARTMENT OF PATHOLOGY AND GENOMIC MEDICINE Specimen Blood Performing Organization Address City/[facility] Phone Number [facility] DEPARTMENT OF PATHOLOGY [address] [place] [address] AND [facility] Basic metabolic panel (05/17/2018 8:51 AM CDT) Pathologist [facility] Sodium 143 135 - 148 mEq/L [facility] DEPARTMENT OF PATHOLOGY AND GENOMIC MEDICINE Potassium 4.1 3.5 - 5.0 mEq/L [facility] DEPARTMENT OF PATHOLOGY AND GENOMIC MEDICINE Chloride 107 98 - 112 mEq/L [facility] DEPARTMENT OF PATHOLOGY AND GENOMIC MEDICINE CO2 24 24 - 31 mEq/L [facility] DEPARTMENT OF PATHOLOGY AND GENOMIC MEDICINE Anion gap 12@ANIO 7 - 15 mEq/L [facility] DEPARTMENT OF PATHOLOGY AND GENOMIC MEDICINE BUN 17 8 - 23 mg/dL [facility] DEPARTMENT OF PATHOLOGY AND GENOMIC MEDICINE Creatinine 0.93 (H) 0.50 - 0.90 mg/dL [facility] DEPARTMENT OF PATHOLOGY AND GENOMIC MEDICINE Glucose 91 65 - 99 mg/dL [facility] DEPARTMENT OF PATHOLOGY AND GENOMIC MEDICINE Calcium 9.3 8.8 - 10.2 mg/dL [facility] DEPARTMENT OF PATHOLOGY AND GENOMIC MEDICINE Specimen Plasma specimen Performing Organization Address City/[facility] Cent[facility]ode Phone Number [facility] DEPARTMENT OF PATHOLOGY [address] [place] [address] AND [facility] POC glucose (05/17/2018 8:50 AM CDT) Pathologist [facility] POC glucose 99 65 - 99 mg/dL [facility] DEPARTMENT OF Comment: PATHOLOGY AND GENOMIC Meter ID: [id number] MEDICINE Balling Head Tender: Riley Ugalde Specimen Performing Organization Address City/State/Zipcode Phone Number [facility] DEPARTMENT OF PATHOLOGY [address] [facility] [place] [address] AND GENOMIC MEDICINE XR Lower Extremity External Study (04/27/2018 4:02 PM CDT)Only the most recent of2 resultswithin the time period is included. Specimen Narrative Performed At This exam was not acquired at a [facility] facility and has not been HM RADIANT interpreted by a [facility] Provider.The exam was imported into our imaging system for comparisons purposes. Performing Organization Address [facility]/Zipcode Phone Number [employer] RADIANT [address] [place] [address] XR Upper Extremity External Study (04/27/2018 4:02 PM CDT)Only the most recent of2 resultswithin the time period is included. Specimen Narrative Performed At This exam was not acquired at a [facility] facility and has not been HM RADIANT interpreted by a [facility] Provider.The exam was imported into our imaging system for comparisons purposes. Performing Organization Address City/[facility] Cent[facility]ode Phone Number [employer] RADIANT [address] [place] [address] after 04/08/2018 Insurance Payer Benefit Plan / Subscriber ID Effective Dates Phone Address Type Group MEDICARE MEDICARE PART A xxxxxxxxxxx 2003-Present [place], [place] Medicare AND B MEDICAID MEDICAID xxxxxxxxx 2015-Present Medicaid Advance Directives Patient has advance care planning documents on file. For more information, please contact:[facility] [place] [address]
--- OUTSIDE RECORDS SUMMARY | 2019-04-09 01:17 | XMS REPORT | Clinical Summary ---
:1955 Author Organization [facility] Address [address] [place] [address] Care Team Providers Name Role Phone Boo Primary Care Provider Allergies Active Allergy Reactions Severity Noted Date Comments Aspirin Other (See Comments) 06/06/2017 dizzy Tramadol Itching 06/06/2017 Medications Medication Sig Dispensed Refills Start Date End Date Status valsartan (DIOVAN) 160 MG Take 160 mg by 0 Active tablet mouth daily. amLODIPine (NORVASC) 5 MG Take 5 mg by 0 Active tablet mouth daily. furosemide (LASIX) 40 MG Take 40 mg by 0 Active tablet mouth as needed. HYDROCODONE-ACETAMINOPHEN Take by mouth. 0 Active ORAL promethazine (PHENERGAN) Take 25 mg by 0 Active 25 MG tablet mouth every 6 (six) hours as needed for Nausea. ranitidine (ZANTAC) 150 Take 150 mg by 0 Active MG tablet mouth 2 (two) times daily. dexlansoprazole 60 mg Take 60 mg by 0 Active capsule mouth daily. omeprazole (PRILOSEC) 40 Take 40 mg by 0 Active MG capsule mouth daily. MULTIVIT-MINERALS/FOLIC/G Take by mouth. 0 Active INKGO (WOMEN'S 50+ DAILY FORM, GKB, ORAL) potassium chloride Take 10 mEq by 0 Active (KLOR-CON) 10 MEQ CR mouth daily. tablet Active Problems Problem Noted Date Chronic pancreatitis 08/15/2017 Abdominal pain 08/15/2017 Immunizations Name Dates Previously Given Next Due [...] travel history available. Last Filed Vital Signs Not on file Plan of Treatment Not on file Results Not on fileafter 04/08/2018 Insurance Payer Benefit Plan / Group Subscriber ID Type Phone Address MEDICARE MEDICARE A B xxxxxxxxxx Medicare Advance Directives For more information, please contact:[address] [phone] Code Status Date Activated Date Inactivated Comments Full Code 08/15/2017 8:14 PM 08/19/2017 4:37 PM This code status was determined by: Patient
--- OUTSIDE RECORDS SUMMARY | 2019-04-09 01:17 | XMS REPORT ---
:1955 Author [facility] Address [address] [place] [address] Care Team Providers Name Role Phone ZABRINA STALLWORTH Unavailable Unavailable Problems This patient has no known problems. Allergies, Adverse Reactions, Alerts This patient has no known allergies or adverse reactions. Medications This patient has no known medications. Results Test Description Test Time Test Comments Text Results Atomic Results Result Comments RAD, TEMPOROMANDIBULAR 2017-08-17 Reason for FINAL REPORT PATIENT ID: JOINT, BILATERAL 17:16:00 exam:->s/p [id number] TECHNIQUE: reduction Open and closed mouth views of both temporomandibular joints dated 08/17/2017. HISTORY: Status post reduction. COMPARISON: No mandibular radiographs dated 08/16/2017. IMPRESSION:There has been interval relocation of the right temporomandibular joint. Left temporal mandibular joint is unremarkable in appearance. No visualized fracture. Signed: Myriam Velez MDReport Verified Date/Time: 08/17/2017 17:16:54 Reading Location: [facility] Radiology Reading Room -NUCLEAR ANTIBODY (TING) 2017-08-17 14:15:00 Test Item Value Reference Range Comments ANTI-NUCLEAR ANTIBODY (TING) (BEAKER) (test sdov=315) Negative Negative SEDIMENTATION [id number] 09:30:00 Test Item Value Reference Range Comments SEDIMENTATION RATE, ERYTHROCYTE (BEAKER) (test 51 mm/HR 0-30 lhjm=817) RAD, TEMPOROMANDIBULAR JOINT, [id number] 18:19:00Reason for exam:-> lock jawFINAL REPORT TECHNIQUE: [...] MDReport Verified Date/Time: 08/16/2017 18:19:33 Reading Location: [address] Consult Reading Room Electronically signed by: TERRI CHIRINOS MD on 2016 06:19 PMCBC W/PLT COUNT & AUTO [id number] 11:27:00 Test Item Value Reference Range Comments WHITE BLOOD CELL COUNT (BEAKER) (test ijxy=218) 8.8 K/ L 3.5-10.5 RED BLOOD CELL COUNT (BEAKER) (test dlii=622) 3.72 M/ L 3.93-5.22 HEMOGLOBIN (BEAKER) (test nisw=067) 11.7 GM/DL 11.2-15.7 HEMATOCRIT (BEAKER) (test pvoa=525) 37.9 % 34.1-44.9 MEAN CORPUSCULAR VOLUME (BEAKER) (test xhdr=734) 101.9 fL 79.4-94.8 MEAN CORPUSCULAR HEMOGLOBIN (BEAKER) (test 31.5 pg 25.6-32.2 urvl=634) MEAN CORPUSCULAR HEMOGLOBIN CONC (BEAKER) (test 30.9 GM/DL 32.2-35.5 vfng=492) RED CELL DISTRIBUTION WIDTH (BEAKER) (test 12.9 % 11.7-14.4 ilpn=941) PLATELET COUNT (BEAKER) (test kxif=313) 181 K/CU MM 150-450 MEAN PLATELET VOLUME (BEAKER) (test gjab=068) 11.1 fL 9.4-12.3 NUCLEATED RED BLOOD CELLS (BEAKER) (test 0 /100 WBC 0-0 yoza=295) NEUTROPHILS RELATIVE PERCENT (BEAKER) (test 75 % xiyl=675) LYMPHOCYTES RELATIVE PERCENT (BEAKER) (test 16 % cyqp=408) MONOCYTES RELATIVE PERCENT (BEAKER) (test 6 % ntdm=586) EOSINOPHILS RELATIVE PERCENT (BEAKER) (test 2 % zaar=214) BASOPHILS RELATIVE PERCENT (BEAKER) (test 1 % lqnn=788) NEUTROPHILS ABSOLUTE COUNT (BEAKER) (test 6.58 K/ L 1.56-6.13 wuxa=463) LYMPHOCYTES ABSOLUTE COUNT (BEAKER) (test 1.38 K/ L 1.18-3.74 glne=751) MONOCYTES ABSOLUTE COUNT (BEAKER) (test 0.54 K/ L 0.24-0.36 jvwn=899) EOSINOPHILS ABSOLUTE COUNT (BEAKER) (test 0.18 K/ L 0.04-0.36 dzso=989) BASOPHILS ABSOLUTE COUNT (BEAKER) (test 0.06 K/ L 0.01-0.08 tvuw=880) IMMATURE GRANULOCYTES-RELATIVE PERCENT (BEAKER) 0 % 0-1 (test iocm=7507) (MANUAL DIFFERENTIAL)2017-08-16 11:27:00 Test Item Value Reference Range Comments TOTAL COUNTED (BEAKER) (test tiad=3405) WBC MORPHOLOGY (BEAKER) (test jebr=173) Normal PLT MORPHOLOGY (BEAKER) (test xsgm=682) Normal RBC MORPHOLOGY (BEAKER) (test etre=323) Normal [id number] 07:47:00 Test Item Value Reference Range Comments PHOSPHORUS (BEAKER) (test tkkt=540) 3.1 mg/dL 2.3-4.7 [id number] 07:47:00 Test Item Value Reference Range Comments MAGNESIUM (BEAKER) (test uyvl=775) 1.7 mg/dL 1.6-2.6 BASIC METABOLIC [id number] 07:47:00 Test Item Value Reference Range Comments SODIUM (BEAKER) (test 144 meq/L 136-145 hcil=532) POTASSIUM (BEAKER) (test 3.5 meq/L 3.5-5.1 rnvk=068) CHLORIDE (BEAKER) (test 111 meq/L 98-107 enqs=764) CO2 (BEAKER) (test 24 meq/L 22-29 wjeo=110) BLOOD UREA NITROGEN 14 mg/dL 7-21 (BEAKER) (test tyay=546) CREATININE (BEAKER) (test 0.80 mg/dL 0.57-1.25 sjvx=851) GLUCOSE RANDOM (BEAKER) 79 mg/dL 70-105 (test tojv=012) CALCIUM (BEAKER) (test 8.3 mg/dL 8.4-10.2 irak=848) EGFR (BEAKER) (test 73 mL/min/1.73 sq m ESTIMATED GFR IS NOT gskt=1541) ACCURATE CREATININE CLEARANCE IN PREDICTING GLOMERULAR FILTRATION RATE. ESTIMATED GFR IS NOT APPLICABLE FOR DIALYSIS PATIENTS. HEPATIC FUNCTION [id number] 07:47:00 Test Item Value Reference Range Comments TOTAL PROTEIN (BEAKER) (test lilb=538) 6.8 gm/dL 6.0-8.3 ALBUMIN (BEAKER) (test mxzw=9258) 3.6 g/dL 3.5-5.0 BILIRUBIN TOTAL (BEAKER) (test gdsz=464) 0.5 mg/dL 0.2-1.2 BILIRUBIN DIRECT (BEAKER) (test mhkb=297) 0.2 mg/dL 0.1-0.5 ALKALINE PHOSPHATASE (BEAKER) (test ocfq=488) 96 U/L 40-150 AST (SGOT) (BEAKER) (test eacw=006) 74 U/L 5-34 ALT (SGPT) (BEAKER) (test nuqp=506) 38 U/L 6-55 FL, [id number] 16:10:00Reason for exam:->dilated ductsFINAL REPORT ERCP. CLINICAL [...] Juaneport Verified Date/Time: 08/15/2017 16:10:57 Reading Location: [address] Radiology Reading Room [id number] 13:55:00 Test Item Value Reference Range Comments POC-POTASSIUM (BEAKER) (test 3.9 meq/L 3.6-5.[address] [facility] [address] [facility] udqp=3347) [facility] [place] [id number]
--- OUTSIDE RECORDS SUMMARY | 2019-04-09 01:17 | XMS REPORT | Summary of Care ---
:1955 Author Organization [facility] Address [address] [place] [address] Care Team Providers Name Role Phone Pcp, Patient Does Not Have A Primary Care Provider Reason for Visit Reason Comments Voice Problem (Routine) Status Reason Specialty Diagnoses / Referred By Referred To Procedures Contact Contact New Request Speech-Language Diagnoses Allergic rhinitis, unspecified seasonality, unspecified trigger Chronic sinusitis, unspecified location Internal nasal lesion Frontal headache S/P FESS (functional endoscopic sinus surgery) MATEO (obstructive sleep apnea) Susan Art, Pathologist Nasal septal deviation Laryngopharyngeal reflux (LPR) PA-C Procedures CONSULT/REFERRAL SPEECH [address] [place] [address] Encounter Details Date Type Department Care Team Description 04/05/2019 Ancillary Visit [facility] Ear, Rama Reynolds, PHD [address] [facility] [id number] [place], [place] [id number] Other voice and resonance disorders (Primary Dx); Nose and Caterina Robles, COURT DEPUTY [address] [place] [id number] Gastroesophageal reflux disease, esophagitis presence not specified [facility] [address] [place] [phone] Allergies Active Allergy Reactions Severity Noted Date Comments Aspirin Unknown - See comments 07/05/2006 Dizzy, lightheaded, pass out Meperidine Itching 09/14/2017 Tramadol Itching 06/06/2017 documented as of this encounter (statuses as of 04/08/2019) Medications Medication Sig Dispensed Refills Start Date End Date Status HYDROXYZINE HCL 10 MG 1 tab dailyprn 30 3 10/03/2008 Active ORAL TABIndications: Essential hypertension, benign PHENERGAN 25 MG ORAL take 1 tab every 20 0 11/05/2008 Active TABIndications: 4 to 6 hours as Abdominal pain, needed for nausea unspecified site KCL (KLOR-CON M20) 20 Take 10 mEq by 0 05/25/2015 Active mEq tablet mouth daily. RESTASIS 0.05 % 0 07/28/2015 Active ophthalmic drops furosemide (LASIX) 40 Take 40 mg by 0 Active mg tablet mouth daily. MULTIVIT Take by mouth. 0 Active &MINERALS/FERROUS FUM (MULTI VITAMIN ORAL) ALPRAZolam 0.5 mg TK 1 T PO BID PRA 2 01/09/2017 Active tablet amLODIPine 5 mg tablet TK 1 T PO D 5 11/30/2016 Active FLOVENT HFA 44 INHALE 1 PUFF PO 5 11/30/2016 Active mcg/actuation inhaler QAM HYDROcodone-acetaminoph Take 1 tablet by 35 tablet 0 02/01/2017 Active en 5-325 mg tablet mouth every 4 (four) hours as needed for Pain (scale 1-3), Pain (scale 4-6) or Pain (scale 7-10). oxymetazoline (AFRIN, Use 2 Sprays in 1 Bottle 1 02/01/2017 Active OXYMETAZOLINE,) 0.05 % each nostril as nasal spray needed (nosebleeds for first few days after surgery). allopurinol 100 mg allopurinol 100 mg tablet 0 Active tablet TAKE ONE (1) TABLET(S) BY MOUTH ONCE A DAY. losartan 100 mg tablet losartan 100 mg tablet 0 Active TAKE ONE (1) TABLET(S) BY MOUTH ONCE A DAY. cetirizine 10 mg tablet Take 10 mg by 0 Active mouth daily. Acetaminophen-Pamabrom Take 2 tablets by 0 Active (MIDOL) 500-25 mg Tab mouth daily. sodium chloride 0.65 % Use 5 Sprays in 104 mL 1 01/10/2019 Active nasal sprayIndications: each nostril as Nasal mass, Hypertrophy needed (nose). of both inferior nasal turbinates, Nasal obstruction oxymetazoline 0.05 % Use for nosebleed 1 Bottle 0 01/10/2019 Active nasal sprayIndications: only Nasal mass, Hypertrophy of both inferior nasal turbinates, Nasal obstruction HYDROcodone-acetaminoph Take 1 tablet by 20 tablet 0 01/10/2019 Active en 5-325 mg mouth every 6 tabletIndications: (six) hours as Nasal mass, Hypertrophy needed for Pain of both inferior nasal (scale 1-3). turbinates, Nasal obstruction ondansetron 4 mg Take 1 tablet by 20 tablet 0 01/10/2019 Active tabletIndications: mouth every 8 Nasal mass, Hypertrophy (eight) hours as of both inferior nasal needed for Nausea turbinates, Nasal and Vomiting obstruction (N/V). sennosides-docusate Take 2 tablets by 40 tablet 0 01/10/2019 Active sodium (COLACE 2-IN-1) mouth daily. 8.6-50 mg per tabletIndications: Nasal mass, Hypertrophy of both inferior nasal turbinates, Nasal obstruction buPROPion XL 150 mg 24 bupropion HCl XL 150 mg 24 hr tablet, extended release 0 Active hr tablet TAKE 1 TABLET BY MOUTH EVERY DAY IN THE MORNING acyclovir 200 mg TAKE ONE (1) 0 02/12/2018 Active capsule CAPSULE(S) BY MOUTH THREE TIMES A DAY FOR 10 DAYS. CEFUROXIME 500 mg TAKE 1 TABLET BY 20 tablet 0 01/31/2019 Active tabletIndications: MOUTH TWICE A DAY Allergic rhinitis, FOR 10 DAYS unspecified seasonality, unspecified trigger, Chronic sinusitis, unspecified location omeprazole 40 mg Take 1 capsule by 30 capsule 3 02/21/2019 Active capsuleIndications: mouth daily for 9 Allergic rhinitis, 90 days. unspecified seasonality, unspecified trigger, Chronic sinusitis, unspecified location, Laryngopharyngeal reflux (LPR) ranitidine 300 mg Take 1 capsule by 30 capsule 2 02/21/2019 Active capsuleIndications: mouth every 9 Allergic rhinitis, evening for 90 unspecified days. 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 quit 17 y/o. Alcohol Use Drinks/Week oz/Week Comments No Sex Assigned at Date Recorded Not on file Job Start Date Occupation Industry Not on file Not on file Not on file Travel History Travel Start Travel End No recent travel history available. 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 She complains of allergies and chronic throat clearing. VOCAL ABUSES/USE OF VOICE: Chronic throat clearing MEDICAL HISTORY SIGNIFICANT FOR: Past Medical History: Diagnosis Date BMI 39.0-39.9,adult Cataract Congestive heart failure Diabetes mellitus Glaucoma Hyperlipemia Hypertension Morbid obesity MATEO on CPAP Osteoarthritis knees Past Surgical History: Procedure Laterality Date APPENDECTOMY 1979 EXTRACAPSULAR CATARACT EXTRACTION WITH INTRAOCULAR LENS IMPLANT Right 2014 HERNIA REPAIR as child LAMINECTOMY,CERVICAL 2008 PHACOEMULSIFICATION OF CATARACT WITH INTRAOCULAR LENS IMPLANT Right 10/09/2014 Surgeon: Lottie Zabala MD; Location: [facility] PHACOEMULSIFICATION OF CATARACT WITH INTRAOCULAR LENS IMPLANT Left 11/13/2014 Surgeon: Lottie Zabala MD; Location: [facility] Social History Socioeconomic History Marital status: Single Spouse name: Not on file Number of children: Not on file Years of education: Not on file Highest education level: Not on file Occupational History Occupation: retired Social Needs Financial resource strain: Not on file Food insecurity: Worry: Not on file Inability: Not on file Transportation needs: Medical: Not on file Non-medical: Not on file Tobacco Use Smoking status: Former Smoker Packs/day: 1.00 Years: 15.00 Pack years: 15.00 Types: Cigarettes Last attempt to quit: 08/06/1985 Years since quittin.6 Smokeless tobacco: Never Used Substance and Sexual Activity Alcohol use: Yes Alcohol/week: 0.0 oz Comment: 04/17/2015 - 2-3 glasses red wine Drug use: No Sexual activity: Never Lifestyle Physical activity: Days per week: Not on file Minutes per session: Not on file Stress: Not on file Relationships Social connections: Talks on phone: Not on file Gets together: Not on file Attends episcopal service: Not on file Active member of club or organization: Not on file Attends meetings of clubs or organizations: Not on file Relationship status: Not on file Intimate partner violence: Fear of current or ex partner: Not on file Emotionally abused: Not on file Physically abused: Not on file Forced sexual activity: Not on file Other Topics Concern Not on file Social History Narrative Single , [facility] 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 The patient had an overall score of 15/ 100, indicating Mild dysphonia. Aberrantperceptual features identified in the voice included the following: VOICE-RELATED QUALITY OF LIFE MEASURE (VRQOL) was administered to assess Bipin Madison perception of the impact of his voice disorder on quality of life. A score of 0 indicates a very poor V-RQOL and a score of 100 indicates an excellent one. Pt's quiz score of 23/50 gives him an estimate VRQOL score of 67/100 indicating that Marita Hernandez voice disorder has a mild impact on her quality of life. Vocal quality during phonation: Rough Pitch: Within Normal Limits Intensity: Too Loud Resonance: Within Normal Limits Respiratory/Phonatory Efficiency: Respiration appeared to be primarily Diaphragmatic Maximum Phonation Time: Sustained "ah": 16 seconds (Norm=15-20 sec./Adult, 10 sec./Child) S/Z Ratio: Sustained s: 18 seconds (Adult Norm=20-25 sec., Child Norm=10 sec.) Sustained z: 19 seconds (Adult Norm=20-25 sec., Child Norm=10 sec.) Ratio=0.94 (Ratio > 1.4 indicates possible laryngeal pathology/poor laryngeal control) ACOUSTIC ASSESSMENT: (See MDVP Report in [employer] medical record for further statistics and graph) Habitual Pitch (Speaking Fo): 146 Hz - Too Low (Female Txjz=988-999 Hz) (Male Seqb=532-090 Hz) Maximum Phonation Time: Jitter % (Irregularity of vibrations of the vocal cords): 0.510% - ___ Within Normal Limits(Female Norm=0.633%, Standard Deviation=0.351) (Male Norm=0.589%, Standard Deviation=0.535) Shimmer in dB (Amplitude variability): 0.256 dB - ___ Within Normal Limits ( Female Norm=0.176, Standard Deviation=0.071) (Male Norm=0.219, Standard Deviation=0.085) VIDEOSTROBOSCOPIC PROCEDURE With patient's consent, a flexible endoscope was passed transnasally via the right nare to obtain a superior view of the pharynx/larynx. 4% Afrin/Lydocaine administered. Endoscope Used: 3.9mm ENF-VH Olympus Scope The patient completed a thorough protocol of phonatory tasks to assess vibratory behavior. Results follow: Glottic Closure: complete Vocal Fold Edge (L): smooth Vocal Fold Edge (R): smooth Amplitude (L): normal Amplitude (R): normal Mucosal Wave (L): normal Mucosal Wave (R): normal Ventricular Folds (Symmetry): equal movement bilaterally Ventricular Folds (Movement): normal Periodicity: regular Arytenoid Symmetry: left moves then right Arytenoid Movement: normal Hyperfunction: normal PATIENT EDUCATION: Patient education re: improved vocal hygiene, LPR/reflux precautions and structure and function of the true vocal cords and the results of this evaluation were completed and appropriate handouts were provided. IMPRESSIONS: This patient presents with a Mild dysphonia characterized by harsh vocal quality, whichdoes not limit communication. Acoustic assessment reveals normal maximum phonation time and igh s/zratio, which indicates normal laryngeal valving of airflow during phonation. Upon videostroboscopicassessment , patient was observed to have fullness at BOT (see pictures below in [employer]) with mucous that can be seen periodically on the vocal cords. Pt able to cough and clear the mucous from thecords. No leukoplakia identified. Patient was also observed to have bilateral TVC erythema and excessive mucus, which may indicate chronic irritation such as that caused by laryngopharyngeal reflux (LPR). Findings of this evaluation were forwarded to Dr. Delgado, ENT, who will review imaging. PROGNOSIS: Good for continued tx by ENT. No ST indicated. RECOMMENDATIONS: 1. Voice treatment was not recommended. 2. Improved vocal hygiene and reflux precautions as discussed. Handouts provided. 3. Medical management of reflux/LPR per physician recommendations. 4. FLU with ENT as needed Recommendations were discussed with Bipin Madison, who indicated understanding of and agreement with the information presented. Refer to [facility] for images/video. Caterina Robles M.S., [facility] DEPUTY Speech Language Pathologist Pager: [phone] documented in this encounter Plan of Treatment Date Type Specialty Care Team Description 04/10/2019 Office Visit Otolaryngology Arti Louis MD [address] [place] [address] Health Maintenance Due Date Last Done Comments DTaP,Tdap,and Td Vaccines (1 1975 - Tdap) COLONOSCOPY 2006 Zoster Recombinant Vaccine 2006 (SHINGRIX) (1 of 2) PAP SMEAR 12/14/2007 12/13/2004, 08/12/2003 MAMMOGRAM 01/01/2010 01/01/2009 LUNG CANCER SCREEN: 2011 Recommended for age 55-80 with 30 + pack year history INFLUENZA VACCINE 05/05/2019 10/10/2007 HEPATITIS C (HCV) SCREEN Completed 03/18/2008 PNEUMOCOCCAL 0-64 YEARS Aged Out No longer eligible based COMBINED SERIES on patient's age to complete this topic documented as of this encounter Results Not on filedocumented in this encounter Visit Diagnoses Diagnosis Other voice and resonance disorders - Primary Gastroesophageal reflux disease, esophagitis presence not specified documented in this encounter Insurance Payer Benefit Plan / Subscriber ID Effective Dates Phone Address Type Group MEDICARE MEDICARE PART xxxxxxxxxxx 2003-Rafael [phone] [address] Medicare [address] [id number] [place] [phone] [facility] MEDICAID OF xxxxxxxxx 2011-Mary [phone] [address] Medicaid [facility] [id number] [place] [address] documented as of this encounter
--- NOTE | 2019-04-09 02:44 | EDPHYS ---
Physician Documentation [facility] Name: Marita Hernandez Age: 63 yrs Sex: Female : 1955 Arrival Date: 04/09/2019 Time: 01:17 Bed 24 Private MD: ED Physician Antwon Stephenson HPI: 04/09 02:38 This 63 yrs old Female presents to ER via Wheelchair with complaints of Back ps1 Pain. 02:38 Pain is chronic in nature which started 20 years ago and she has been under the care of ps1 Dr. Barry and Brian at [facility]. She is on London 10/325 nad xanax for her pain. She has had rhizotomy and nerve blocks. Her pain has worsened over last couple of days 2/2 to starting to work again. She is c/o R>L sciatica and spasm. No fever. Not immunocompromised. Has London rx that should be current with a month supply that was filled per [facility] data base. Recent MRI without cord compression. This was done at [facility] on 04/05/2018. MRI demonstrates a mild spondylolisthesis with facet joint hypertrophy and a left facet joint effusion at L4-L5 with mild subarticular stenosis bilaterally. There is mild disc bulge and facet joint hypertrophy at L5-S1 with mild subarticular stenosis bilaterally. There is no evidence of significant central canal stenosis. There is no evidence of acute or chronic fracture. Radiologic imaging demonstrates lumbar scoliosis with a grade 1 spondylolisthesis at L4-L5. MRI demonstrates mild subarticular stenosis bilaterally at L4-L5 and L5-S1. EMG of the lower extremity shows evidence of a left worse than right L5 radiculopathy. She recently had 2 epidural steroid injections with Dr. Tacos Torres in September and November. She reports improvement of symptoms for 1 week following the L4-L5 and L5-S1 injection in September. She denies improvement of symptoms following the L4-L5 injection in November. . Historical: - Allergies: 01:30 Aspirin; ak1 01:30 tramadol; ak1 - Home Meds: 01:30 Lasix 40 mg Oral tab 1 tab once daily [Active]; losartan Oral [Active]; London 10-325 mg ak1 Oral tab as needed [Active]; potassium chloride 10 mEq Oral cpER [Active]; amlodipine 5 mg tab [Active]; - PMHx: 01:30 acid reflux; Hypertension; Pancreatitis; ak1 - PSHx: 01:30 Cholecystectomy; Appendectomy; Hysterectomy; Hernia repair; Carpal Tunnel Repair; neck ak1 sx; shoulder sx; - Immunization history:: Adult Immunizations unknown. - Social history:: Smoking status: Patient/guardian denies using tobacco. - Ebola Screening: : No symptoms or risks identified at this time. ROS: 02:38 Constitutional: Negative for fever, chills, and weight loss, Eyes: Negative for injury, ps1 pain, redness, and discharge, Cardiovascular: Negative for chest pain, palpitations, and edema, Respiratory: Negative for shortness of breath, cough, wheezing, and pleuritic chest pain, Abdomen/GI: Negative for abdominal pain, nausea, vomiting, diarrhea, and constipation, MS/Extremity: Negative for injury and deformity, Skin: Negative for injury, rash, and discoloration, Neuro: Negative for headache, weakness, numbness, tingling, and seizure. 02:38 Back: Positive for pain with movement, radiated pain. Exam: 02:38 Constitutional: This is a well developed, well nourished patient who is awake, alert, ps1 and in no acute distress. Head/Face: Normocephalic, atraumatic. Eyes: Pupils equal round and reactive to light, extra-ocular motions intact. Lids and lashes normal. Conjunctiva and sclera are non-icteric and not injected. Chest/axilla: Normal chest wall appearance and motion. Nontender with no deformity. No lesions are appreciated. Cardiovascular: Regular rate and rhythm. No gallops, murmurs, or rubs. Normal PMI, no JVD. No pulse deficits. Respiratory: Lungs have equal breath sounds bilaterally, clear to auscultation and percussion. No rales, rhonchi or wheezes noted. No increased work of breathing, no retractions or nasal flaring. Abdomen/GI: Soft, non-tender, with normal bowel sounds. No distension or tympany. No guarding or rebound. No evidence of tenderness throughout. Skin: Warm, dry with normal turgor. Normal color with no rashes, no lesions, and no evidence of cellulitis. MS/ Extremity: Pulses equal, no cyanosis. Neurovascular intact. Full, normal range of motion. Neuro: Awake and alert, GCS 15, oriented to person, place, time, and situation. Cranial nerves II-XII grossly intact. Sensory grossly intact. 02:38 Back: pain, that is moderate, of the right mid back and right low back, muscle spasm, is appreciated in the right mid back and right low back. Vital Signs: 01:27 BP 146 / 101; Pulse 80; Resp 22; Temp 98.1; Pulse Ox 100% on R/A; Weight 63.5 kg (R); ak1 Height 5 ft. 3 in. (160.02 cm) (R); Pain 10/10; 02:30 BP 151 / 93; Pulse 85; Resp 20; Temp 98.1; Pulse Ox 99% ; rr5 01:27 Body Mass Index 24.80 (63.50 kg, 160.02 cm) ak1 MDM: 02:38 Data reviewed: vital signs, nurses notes, and as a result, I will discharge patient. 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 02:43 Patient medically screened. ps1 Administered Medications: 02:56 Drug: TORadol 30 mg Route: IM; Site: right gluteus; rr5 03:41 Follow up: Response: No change in condition bb 02:57 Drug: Robaxin 750 mg Route: PO; rr5 03:41 Follow up: Response: No change in condition bb Disposition: 04/09/19 02:43 Discharged to Home. Impression: Chronic pain syndrome, Lower back pain, Paraspinal spasm. - Condition is Stable. - Discharge Instructions: Back Pain, Adult. - Prescriptions for Anaprox DS 550 mg Oral Tablet - take 1 tablet by ORAL route every 12 hours As needed; 20 tablet. Robaxin 500 mg Oral Tablet - take 2 tablet by ORAL route every 6 hours As needed; 40 tablet. Medrol (Saul) 4 mg Oral Tablets, Dose Pack - take 1 tablet by ORAL route as directed - follow package instructions; 1 packet. - Medication Reconciliation Form, Thank You Letter, Antibiotic Education, Prescription Opioid Use form. - Follow up: Private Physician; When: As needed; Reason: Recheck today's complaints, Continuance of care, Re-evaluation by your physician. Follow up: Emergency Department; When: As needed; Reason: Fever > 102 F, Worsening of condition. - Problem is an ongoing problem. - Symptoms are unchanged. Signatures: Lolita Hoffman RN RN bb Jillian Romeo RN RN ak1 Antwon Stephenson MD MD ps1 Ang Branham RN RN rr5 Corrections: (The following items were deleted from the chart) 03:43 02:43 04/09/2019 02:43 Discharged to Home. Impression: Chronic pain syndrome; Lower bb back pain; Paraspinal spasm. Condition is Stable. Forms are Medication Reconciliation Form, Thank You Letter, Antibiotic Education, Prescription Opioid Use. Follow up: Private Physician; When: As needed; Reason: Recheck today's complaints, Continuance of care, Re-evaluation by your physician. Follow up: Emergency Department; When: As needed; Reason: Fever > 102 F, Worsening of condition. Problem is an ongoing problem. Symptoms are unchanged. ps1
--- NOTE | 2019-04-09 02:44 | ER ---
Nurse's Notes [facility] Name: Marita Hernandez Age: 63 yrs Sex: Female : 1955 Arrival Date: 04/09/2019 Time: 01:17 Bed 24 Private MD: Diagnosis: Chronic pain syndrome;Lower back pain;Paraspinal spasm Presentation: 04/09 01:27 Presenting complaint: Patient states: lower back pain with numbness in both legs ak1 started at 2100. pt stated she has appointment with a surgeon for a nerve block in her back on the . Transition of care: patient was not received from another setting of care. Onset of symptoms was April 09, 2019. Risk Assessment: Do you want to hurt yourself or someone else? Patient reports no desire to harm self or others. Initial Sepsis Screen: Does the patient meet any 2 criteria? No. Patient's initial sepsis screen is negative. Does the patient have a suspected source of infection? No. Patient's initial sepsis screen is negative. 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 01:27 Method Of Arrival: Wheelchair ak1 01:27 Acuity: MEHRDAD 3 ak1 Triage Assessment: 01:30 General: Appears uncomfortable, Behavior is crying. ak1 Historical: - Allergies: 01:30 Aspirin; ak1 01:30 tramadol; ak1 - Home Meds: 01:30 Lasix 40 mg Oral tab 1 tab once daily [Active]; losartan Oral [Active]; Inwood 10-325 mg ak1 Oral tab as needed [Active]; potassium chloride 10 mEq Oral cpER [Active]; amlodipine 5 mg tab [Active]; - PMHx: 01:30 acid reflux; Hypertension; Pancreatitis; ak1 - PSHx: 01:30 Cholecystectomy; Appendectomy; Hysterectomy; Hernia repair; Carpal Tunnel Repair; neck ak1 sx; shoulder sx; - Immunization history:: Adult Immunizations unknown. - Social history:: Smoking status: Patient/guardian denies using tobacco. - Ebola Screening: : No symptoms or risks identified at this time. Screenin:34 Abuse screen: Denies threats or abuse. Denies injuries from another. Nutritional rr5 screening: No deficits noted. Tuberculosis screening: No symptoms or risk factors identified. Fall Risk Secondary diagnosis (15 points) back pain.. Gait- Impaired (20 pts.). Total Hopkins Fall Scale indicates Low Risk Score (25-44 pts). Fall prevention measures have been instituted. Side Rails Up X 2 Placed close to Nursing Station Frequent Obs/Assesments occuring Family Present and informed to notify staff if they need to leave bedside As available Patient and Family Educated on Fall Prevention Program and strategies. Assessment: 01:30 General: Appears in no apparent distress. uncomfortable, Behavior is crying. Pain: rr5 Complains of pain in back Pain radiates to right leg and left leg Pain currently is 10 out of 10 on a pain scale. Quality of pain is described as aching, Pain began gradually, Is intermittent. Neuro: Level of Consciousness is awake, alert, obeys commands, Oriented to person, place, time, situation, Appropriate for age Reports numbness in right leg and left leg. Cardiovascular: Capillary refill < 3 seconds Patient's skin is warm and dry. Respiratory: Airway is patent Respiratory effort is even, unlabored, Respiratory pattern is regular, symmetrical. GI: No signs and/or symptoms were reported involving the gastrointestinal system. : No signs and/or symptoms were reported regarding the genitourinary system. EENT: No signs and/or symptoms were reported regarding the EENT system. Derm: Skin is intact, Skin temperature is warm. Musculoskeletal: Circulation, motion, and sensation intact. Capillary refill < 3 seconds, Reports pain in back. 02:15 Reassessment: Patient appears in no apparent distress at this time. Patient and/or rr5 family updated on plan of care and expected duration. Pain level reassessed. Patient is alert, oriented x 3, equal unlabored respirations, skin warm/dry/pink. awaiting for provider. 03:40 Reassessment: Patient and/or family updated on plan of care and expected duration. Pain bb level reassessed. pt instructed on need for follow-up verbalized understanding of plan of care assisted to exit and to vehicle via wheelchair accompanied by daughter Patient states symptoms have not improved. Vital Signs: 01:27 BP 146 / 101; Pulse 80; Resp 22; Temp 98.1; Pulse Ox 100% on R/A; Weight 63.5 kg (R); ak1 Height 5 ft. 3 in. (160.02 cm) (R); Pain 10/10; 02:30 BP 151 / 93; Pulse 85; Resp 20; Temp 98.1; Pulse Ox 99% ; rr5 01:27 Body Mass Index 24.80 (63.50 kg, 160.02 cm) ak1 ED Course: 01:17 Patient arrived in ED. cl3 01:27 Arm band placed on Patient placed in an exam room, on a stretcher, on pulse oximetry, ak1 Patient notified of wait time. 01:28 Triage completed. ak1 01:32 Ang Branham, JUSTIN is Primary Nurse. rr5 02:25 Antwon Stephenson MD is Attending Physician. ps1 03:42 No provider procedures requiring assistance completed. Patient did not have IV access bb during this emergency room visit. 03:43 Patient has correct armband on for positive identification. bb Administered Medications: 02:56 Drug: TORadol 30 mg Route: IM; Site: right gluteus; rr5 03:41 Follow up: Response: No change in condition bb 02:57 Drug: Robaxin 750 mg Route: PO; rr5 03:41 Follow up: Response: No change in condition bb Outcome: 02:43 Discharge ordered by . ps1 03:43 Discharged to home via wheelchair, with family, pt is driving bb 03:43 Condition: stable 03:43 Discharge instructions given to patient, Instructed on discharge instructions, follow up and referral plans. medication usage, Demonstrated understanding of instructions, follow-up care, medications, Prescriptions given X 3. 03:43 Patient left the ED. bb Signatures: Lolita Hoffman RN RN bb Jillian Romeo RN RN ak1 Antwon Stephenson MD MD ps1 Ang Branham, RN RN rr5 Shayne Rebolledo cl3
[2019-04-09] MEDS ORDERED: KETOROLAC 30 MG/ML INJ ONE (02:52)
[2019-04-09] MEDS ORDERED: METHOCARBAMOL 500 MG TAB ONE (02:52)
[2019-04-09 04:16] VITALS: TEMP 98.1
[2019-04-09 04:18] VITALS: BP 151/93; O2SAT 99
== END 2019-04-09 03:43 | disposition home or self-care (01) ==
LOC: ER 01:14
DX: M54.5 Low back pain (principal); G89.4 Chronic pain syndrome; M62.830 Muscle spasm of back; Z79.82 Long term (current) use of aspirin; I10 Essential (primary) hypertension
CPT/HCPCS: 96372; 99283

== ENCOUNTER 2019-11-21 | Emergency (ER) | payer OTHER ==
--- OUTSIDE RECORDS SUMMARY | 2019-11-21 11:16 | XMS REPORT ---
:1955 [facility] Address [address] [place] [address] [address]. [address] [place] [address] Care Team Providers Name Role Phone ZABRINA STALLWORTH Unavailable Unavailable Problems This patient has no known problems. Allergies, Adverse Reactions, Alerts This patient has no known allergies or adverse reactions. Medications This patient has no known medications. Results Test Description Test Time Test Comments Text Results Atomic Results Result Comments RAD, TEMPOROMANDIBULAR 2017-08-17 Reason for FINAL REPORT PATIENT ID: JOINT, BILATERAL 17:16:00 exam:->s/p [id number] TECHNIQUE: reduction Open and closed mouth views of both temporomandibular joints dated 08/17/2017. HISTORY: Status post reduction. COMPARISON: No mandibular radiographs dated 08/16/2017. IMPRESSION:There has been interval relocation of the right temporomandibular joint. Left temporal mandibular joint is unremarkable in appearance. No visualized fracture. Signed: Myriam Velez MDReport Verified Date/Time: 08/17/2017 17:16:54 Reading Location: [facility] Radiology Reading Room -NUCLEAR ANTIBODY (TING) 2017-08-17 14:15:00 Test Item Value Reference Range Comments ANTI-NUCLEAR ANTIBODY (TING) (BEAKER) (test yfpj=911) Negative Negative SEDIMENTATION [id number] 09:30:00 Test Item Value Reference Range Comments SEDIMENTATION RATE, ERYTHROCYTE (BEAKER) (test 51 mm/HR 0-30 ilcb=862) RAD, TEMPOROMANDIBULAR JOINT, [id number] 18:19:00Reason for exam:-> lock jawFINAL REPORT TECHNIQUE: [...] MDReport Verified Date/Time: 08/16/2017 18:19:33 Reading Location: [facility] [id number] Consult Reading Room Electronically signed by: TERRI CHIRINOS MD on 2016 06:19 PMCBC W/PLT COUNT & AUTO [id number] 11:27:00 Test Item Value Reference Range Comments WHITE BLOOD CELL COUNT (BEAKER) (test vnaj=298) 8.8 K/ L 3.5-10.5 RED BLOOD CELL COUNT (BEAKER) (test hugk=961) 3.72 M/ L 3.93-5.22 HEMOGLOBIN (BEAKER) (test fynp=696) 11.7 GM/DL 11.2-15.7 HEMATOCRIT (BEAKER) (test grcs=350) 37.9 % 34.1-44.9 MEAN CORPUSCULAR VOLUME (BEAKER) (test gamm=087) 101.9 fL 79.4-94.8 MEAN CORPUSCULAR HEMOGLOBIN (BEAKER) (test 31.5 pg 25.6-32.2 qqxm=163) MEAN CORPUSCULAR HEMOGLOBIN CONC (BEAKER) (test 30.9 GM/DL 32.2-35.5 htwd=478) RED CELL DISTRIBUTION WIDTH (BEAKER) (test 12.9 % 11.7-14.4 ohmw=118) PLATELET COUNT (BEAKER) (test blna=560) 181 K/CU MM 150-450 MEAN PLATELET VOLUME (BEAKER) (test oxam=244) 11.1 fL 9.4-12.3 NUCLEATED RED BLOOD CELLS (BEAKER) (test 0 /100 WBC 0-0 vglv=658) NEUTROPHILS RELATIVE PERCENT (BEAKER) (test 75 % caoq=188) LYMPHOCYTES RELATIVE PERCENT (BEAKER) (test 16 % tmhb=209) MONOCYTES RELATIVE PERCENT (BEAKER) (test 6 % lfjs=405) EOSINOPHILS RELATIVE PERCENT (BEAKER) (test 2 % njib=175) BASOPHILS RELATIVE PERCENT (BEAKER) (test 1 % cpts=848) NEUTROPHILS ABSOLUTE COUNT (BEAKER) (test 6.58 K/ L 1.56-6.13 qnda=754) LYMPHOCYTES ABSOLUTE COUNT (BEAKER) (test 1.38 K/ L 1.18-3.74 fiti=257) MONOCYTES ABSOLUTE COUNT (BEAKER) (test 0.54 K/ L 0.24-0.36 wuzm=939) EOSINOPHILS ABSOLUTE COUNT (BEAKER) (test 0.18 K/ L 0.04-0.36 clyx=313) BASOPHILS ABSOLUTE COUNT (BEAKER) (test 0.06 K/ L 0.01-0.08 lqjb=954) IMMATURE GRANULOCYTES-RELATIVE PERCENT (BEAKER) 0 % 0-1 (test tmog=0919) (MANUAL DIFFERENTIAL)2017-08-16 11:27:00 Test Item Value Reference Range Comments TOTAL COUNTED (BEAKER) (test zmni=3575) WBC MORPHOLOGY (BEAKER) (test umby=447) Normal PLT MORPHOLOGY (BEAKER) (test kuyj=571) Normal RBC MORPHOLOGY (BEAKER) (test mohg=686) Normal [id number] 07:47:00 Test Item Value Reference Range Comments PHOSPHORUS (BEAKER) (test gggn=403) 3.1 mg/dL 2.3-4.7 [id number] 07:47:00 Test Item Value Reference Range Comments MAGNESIUM (BEAKER) (test yayr=252) 1.7 mg/dL 1.6-2.6 BASIC METABOLIC [id number] 07:47:00 Test Item Value Reference Range Comments SODIUM (BEAKER) (test 144 meq/L 136-145 cuzh=223) POTASSIUM (BEAKER) (test 3.5 meq/L 3.5-5.1 xbfi=836) CHLORIDE (BEAKER) (test 111 meq/L 98-107 qnfs=106) CO2 (BEAKER) (test 24 meq/L 22-29 jjdj=724) BLOOD UREA NITROGEN 14 mg/dL 7-21 (BEAKER) (test ayaa=658) CREATININE (BEAKER) (test 0.80 mg/dL 0.57-1.25 rirv=185) GLUCOSE RANDOM (BEAKER) 79 mg/dL 70-105 (test clzy=912) CALCIUM (BEAKER) (test 8.3 mg/dL 8.4-10.2 erfp=305) EGFR (BEAKER) (test 73 mL/min/1.73 sq m ESTIMATED GFR IS NOT mbta=9136) ACCURATE CREATININE CLEARANCE IN PREDICTING GLOMERULAR FILTRATION RATE. ESTIMATED GFR IS NOT APPLICABLE FOR DIALYSIS PATIENTS. HEPATIC FUNCTION [id number] 07:47:00 Test Item Value Reference Range Comments TOTAL PROTEIN (BEAKER) (test trlc=592) 6.8 gm/dL 6.0-8.3 ALBUMIN (BEAKER) (test wtey=0768) 3.6 g/dL 3.5-5.0 BILIRUBIN TOTAL (BEAKER) (test belc=615) 0.5 mg/dL 0.2-1.2 BILIRUBIN DIRECT (BEAKER) (test qpwr=124) 0.2 mg/dL 0.1-0.5 ALKALINE PHOSPHATASE (BEAKER) (test ddsw=323) 96 U/L 40-150 AST (SGOT) (BEAKER) (test icdn=160) 74 U/L 5-34 ALT (SGPT) (BEAKER) (test cjco=581) 38 U/L 6-55 FL, [id number] 16:10:00Reason for exam:->dilated ductsFINAL REPORT ERCP. CLINICAL [...] 39 seconds. Seven images. Signed: Darwin Juan MDReport Verified Date/Time: 08/15/2017 16:10:57 Reading Location: [address] Radiology Reading Room [id number] 13:55:00 Test Item Value Reference Range Comments POC-POTASSIUM (BEAKER) (test 3.9 meq/L 3.6-5.5 TESTED AT [facility] [address] [facility] okfm=8567) [facility] [id number]
--- OUTSIDE RECORDS SUMMARY | 2019-11-21 11:18 | XMS REPORT | Summary of Care ---
:1955 Author Organization [facility] [place] [address] Care Team Providers Name Role Phone Eliu Newton MD Primary Care Provider Tacos Torres MD Unavailable Eliu Llamas MD Unavailable Audie Gunn MD Unavailable Reason for Visit Reason Comments Constipation Error Encounter Details Date Type Department Care Team Description [facility] Error Medicine [address] [facility] [address] [place] [address] 8th Floor, [address] [phone] [place] [address] Allergies Active Allergy Reactions Severity Noted Date Comments Aspirin Other (See Comments) 09/29/2016 Pass out too dizzy Weak and faints Meperidine Itching 09/14/2017 Tramadol Itching 06/06/2017 documented as of this encounter (statuses as of 10/03/2019) Medications Medication Sig Dispensed Refills Start Date End Date Status allopurinol (ZYLOPRIM) TAKE ONE (1) 5 01/16/2018 Active 100 MG tablet TABLET(S) BY MOUTH ONCE A DAY. hydrocodone-acetaminoph as needed for 0 01/30/2018 Active en (NORCO) 10-325 MG Pain. per tablet furosemide (LASIX) 40 TAKE ONE (1) 5 02/11/2018 Active MG tablet TABLET(S) BY MOUTH EVERY MORNING. promethazine TK 1 T PO Q 6 H 0 Active (PHENERGAN) 25 MG PRN NV FOR UP TO tablet 30 DAYS TO BEGIN AFTER SURGERY losartan (COZAAR) 100 TAKE ONE (1) 5 04/23/2018 Active MG tablet TABLET(S) BY MOUTH ONCE A DAY. buPROPion (WELLBUTRIN) Take 1 Tab by 30 Tab 3 09/12/2019 Active 300 MG XL tablet mouth every morning. oxcarbazepine Take 1 Tab by 60 Tab 3 09/12/2019 Active (TRILEPTAL) 150 MG mouth two times tablet daily. documented as of this encounter (statuses as of 10/03/2019) Active Problems Problem Noted Date Major depressive disorder, recurrent episode, moderate (HCCode) 01/09/2018 Idiopathic chronic pancreatitis (HCCode) 05/12/2017 documented as of this encounter (statuses as of 10/03/2019) Social History Tobacco Use Types Packs/Day Years Used Date Former Smoker Smokeless Tobacco: Never Used Comments: smoked at age 17 1-2 cigarretes Alcohol Use Drinks/Week oz/Week Comments No Sex Assigned at Date Recorded Not on file Job Start Date Occupation Industry Not on file Not on file Not on file Travel History Travel Start Travel End No recent travel history available. documented as of this encounter Last Filed Vital Signs Not on filedocumented in this encounter Progress Notes Justin Hernandez MD - 09/13/2019 10:30 AM RESIDENTIAL CONCIERGE This encounter was created in error - please disregard. documented in this encounter Plan of Treatment Date Type Specialty Care Team Description 10/11/2019 Office Visit Gastroenterology Shaheen Lam MD [address] [place] [address] [phone] 01/09/2020 Office Visit Psychiatry Marie Ness MD 01/09/2020 Appointment Psychiatry Health Maintenance Due Date Last Done Comments COLON CANCER SCREENING: COLONOSCOPY 1955 MAMMOGRAM ANNUAL 1955 TETANUS SHOT (ADULT) 1971 BMI FOLLOW UP PLAN 1974 HEPATITIS C SCREENING 1974 HIV SCREENING 1974 CERVICAL CANCER SCREENING 3 YEAR FOLLOW UP 1977 MEDICARE AWV (Initial) 05/05/2003 FLU VACCINE > 6 MONTHS 04/04/2019 09/25/2018 (Declined) documented as of this encounter Results Not on filedocumented in this encounter Visit Diagnoses Diagnosis ERRONEOUS ENCOUNTER--DISREGARD - Primary documented in this encounter Insurance Payer Benefit Plan / Subscriber ID Effective Dates Phone Address Type Group MEDICARE MEDICARE PART A xxxxxxxxxxx 2019-Present [address] Medicare [place] [address] MEDICAID [employer]-MEDICAID - xxxxxxxxx 2015-Present [address] [place] [address] documented as of this encounter
--- NOTE | 2019-11-21 11:35 | ER ---
Nurse's Notes [facility] Name: Marita Hernandez Age: 64 yrs Sex: Female : 1955 Arrival Date: 11/21/2019 Time: 11:08 Bed 18 Private MD: Eliu Newton E Diagnosis: COVID-19 possible exposure, no testing performed. ;Bronchitis. ;Influenza-like illness. Presentation: 11/20 11:24 Chief complaint: Patient states: C/O cough and congestion for 5 days but denies any fevers. Associated symptoms chest pain from coughing, body aches and chills. Coronavirus screen: The patient has NOT traveled to a country currently being monitored by the [facility] within the last 14 days. Ebola Screen: Patient negative for fever greater than or equal to 101.5 degrees Fahrenheit, and additional compatible Ebola Virus Disease symptoms Patient denies exposure to infectious person. Initial Sepsis Screen: Does the patient meet any 2 criteria? No. Patient's initial sepsis screen is negative. Does the patient have a suspected source of infection? Yes: Productive cough/pneumonia. Risk Assessment: Do you want to hurt yourself or someone else? Patient reports no desire to harm self or others. 11:24 Method Of Arrival: Ambulatory 11:24 Acuity: [id number] 4 11:30 Onset of symptoms was November 21, 2019. Historical: - Allergies: 11:27 Aspirin; 11:27 tramadol; wh - PMHx: 11:27 acid reflux; Hypertension; Pancreatitis; - Immunization history:: Adult Immunizations not up to date, Flu vaccine is up to date. - Social history:: Smoking status: Patient/guardian denies using. Screenin:29 Abuse screen: Denies threats or abuse. Denies injuries from another. Nutritional screening: No deficits noted. Tuberculosis screening: No symptoms or risk factors identified. Fall Risk None identified. Assessment: 11:28 General: Appears in no apparent distress. Behavior is calm, cooperative, appropriate wh for age. Pain: Complains of pain in chest Pain does not radiate. Quality of pain is described as aching, Pain began 2-3 days ago. Neuro: Level of Consciousness is awake, alert, obeys commands, Oriented to person, place, time, situation, Appropriate for age. Cardiovascular: Heart tones S1 S2. Respiratory: Reports cough that is Airway is patent Respiratory effort is even, unlabored, Respiratory pattern is regular, symmetrical, Breath sounds are clear bilaterally. GI: Abdomen is flat, non-distended. : No signs and/or symptoms were reported regarding the genitourinary system. EENT: No signs and/or symptoms were reported regarding the EENT system. Derm: Skin is intact, is healthy with good turgor, Skin is pink, warm \T\ dry. normal. Musculoskeletal: Circulation, motion, and sensation intact. Vital Signs: 11:24 BP 134 / 79; Pulse 89; Resp 18; Temp 98.8; Pulse Ox 96% ; Weight 68.04 kg; Height 5 ft. 3 in. (160.02 cm); 11:24 Body Mass Index 26.57 (68.04 kg, 160.02 cm) ED Course: 11:08 Patient arrived in ED. mr 11:08 Eliu Newton MD is Private Physician. mr 11:17 Kendra Marie is Primary Nurse. 11:22 Antwon Stephenson MD is Attending Physician. ps1 11:26 Triage completed. 11:29 Arm band placed on right wrist. 11:29 Patient has correct armband on for positive identification. Bed in low position. Call light in reach. Side rails up X 1. Pulse ox on. NIBP on. 11:30 No provider procedures requiring assistance completed. Patient did not have IV access during this emergency room visit. Patient maintains SpO2 saturation greater than 95% on room air. 11:33 Eliu Newton MD is Referral Physician. ps1 Administered Medications: No medications were administered Outcome: 11:34 Discharge ordered by . ps1 11:48 Discharged to home ambulatory. 11:48 Condition: stable 11:48 Discharge instructions given to patient, Instructed on discharge instructions, follow up and referral plans. medication usage, POC Demonstrated understanding of instructions, follow-up care, medications, POC Prescriptions given X 2. 11:48 Patient left the ED. Signatures: Edith Joya BryantanneKendra Antwon Stephenson MD MD ps1
--- NOTE | 2019-11-21 11:35 | EDPHYS ---
Physician Documentation [facility] Name: Marita Hernandez Age: 64 yrs Sex: Female : 1955 Arrival Date: 11/21/2019 Time: 11:08 Bed 18 Private MD: Eliu Newton E ED Physician Antwon Stephenson HPI: 11/20 11:22 This 64 yrs old Female presents to ER via Unassigned with complaints of Cough, ps1 Chest Pain. 11:22 patient has had symptoms for 4 days. Associated with sore throat. Hx of asthma. No ps1 difficulty breathing. Does not meet CDC criteria for testing. . Historical: - Allergies: 11:27 Aspirin; wh 11:27 tramadol; wh - PMHx: 11:27 acid reflux; Hypertension; Pancreatitis; wh - Immunization history:: Adult Immunizations not up to date, Flu vaccine is up to date. - Social history:: Smoking status: Patient/guardian denies using. ROS: 11:22 Constitutional: Negative for fever, chills, and weight loss, Eyes: Negative for injury, ps1 pain, redness, and discharge, Cardiovascular: Negative for chest pain, palpitations, and edema, Abdomen/GI: Negative for abdominal pain, nausea, vomiting, diarrhea, and constipation, MS/Extremity: Negative for injury and deformity, Skin: Negative for injury, rash, and discoloration. 11:22 Respiratory: Positive for cough. Exam: 11:22 Constitutional: This is a well developed, well nourished patient who is awake, alert, ps1 and in no acute distress. Head/Face: Normocephalic, atraumatic. 11:22 MS/ Extremity: Pulses equal, no cyanosis. Neurovascular intact. Full, normal range of motion. Neuro: Awake and alert, GCS 15, oriented to person, place, time, and situation. Cranial nerves II-XII grossly intact. Sensory grossly intact. 11:22 Chest/axilla: deferred. Normal HR. . 11:22 Respiratory: Normal effort, no audible wheezing. Auscultation deferred. No distress. . Vital Signs: 11:24 BP 134 / 79; Pulse 89; Resp 18; Temp 98.8; Pulse Ox 96% ; Weight 68.04 kg; Height 5 ft. wh 3 in. (160.02 cm); 11:24 Body Mass Index 26.57 (68.04 kg, 160.02 cm) MDM: 11:22 Differential Diagnosis: Bronchitis Influenza Upper Respiratory Infection Other COVID-19.ps1 11:34 Patient medically screened. ps1 Administered Medications: No medications were administered Disposition: 11/21/19 11:34 Discharged to Home. Impression: Influenza-like illness. , COVID-19 possible exposure, no testing performed. , Bronchitis. . - Condition is Stable. - Discharge Instructions: Acute Bronchitis, Adult. - Prescriptions for Tessalon Perles 100 mg Oral Capsule - take 1 capsule by ORAL route every 8 hours As needed; 15 capsule. Albuterol Sulfate 90 mcg/actuation - inhale 1-2 puff by INHALATION route every 4-6 hours; 1 Inhaler. - Medication Reconciliation Form, Thank You Letter, Antibiotic Education, Prescription Opioid Use form. - Follow up: Eliu Newton MD; When: Upon discharge from the Emergency Department; Reason: Recheck today's complaints, Continuance of care, Re-evaluation by your physician. Follow up: Emergency Department; When: As needed; Reason: Fever > 102 F, Trouble breathing, Worsening of condition. - Problem is new. - Symptoms are unchanged. Signatures: Kendra Marie Phillip, MD MD ps1 Corrections: (The following items were deleted from the chart) 11:34 11:34 11/21/2019 11:34 Discharged to Home. Impression: COVID-19 possible exposure, no ps1 testing performed. ; Bronchitis. ; Influenza-like illness. . Condition is Stable. Forms are Medication Reconciliation Form, Thank You Letter, Antibiotic Education, Prescription Opioid Use. Follow up: Eliu Newton; When: Upon discharge from the Emergency Department; Reason: Recheck today's complaints, Continuance of care, Re-evaluation by your physician. Follow up: Emergency Department; When: As needed; Reason: Fever > 102 F, Trouble breathing, Worsening of condition. Problem is new. Symptoms are unchanged. ps1 11:48 11:34 11/21/2019 11:34 Discharged to Home. Impression: Influenza-like illness. COVID-19 wh possible exposure, no testing performed. ; Bronchitis. . Condition is Stable. Forms are Medication Reconciliation Form, Thank You Letter, Antibiotic Education, Prescription Opioid Use. Follow up: Eliu Newton; When: Upon discharge from the Emergency Department; Reason: Recheck today's complaints, Continuance of care, Re-evaluation by your physician. Follow up: Emergency Department; When: As needed; Reason: Fever > 102 F, Trouble breathing, Worsening of condition. Problem is new. Symptoms are unchanged. ps1
== END 2019-11-21 11:48 | disposition home or self-care (01) ==
CPT/HCPCS: 99284